=== PATIENT | male | born 1970 | race American Indian/Alaskan Native ===

== ENCOUNTER 2017-03-08 02:01 | Emergency (ER) | payer MEDICARE ==
[2017-03-08 03:35] LABS: Basophils % (Auto) 0.5 % (0.0-1.8); Eosinophils # (Auto) 0.1 K/mm3 (0.0-0.4); Eosinophils % (Auto) 1.1 % (0.0-4.3); Hemoglobin 12.4 gm/dl (11.8-15.2); Lymphocytes # (Auto) 1.2 K/mm3 (1.2-5.4); Lymphocytes % (Auto) 16.4 % (13.4-35.0); Mean Corpuscular HGB Conc 34 % (32-34); Mean Corpuscular Hemoglobin 28 pg (28-32); Mean Corpuscular Volume 85 fl (84-94); Monocytes # (Auto) 0.6 K/mm3 (0.0-0.8); Monocytes % (Auto) 8.4 % (0.0-7.3); Platelet Count 201 K/mm3 (140-440); Red Blood Count 4.38 M/mm3 (3.65-5.03); Red Cell Distribution Width 14.4 % (13.2-15.2)
--- NOTE | 2017-03-08 08:30 | Emergency Department Report ---
Chief Complaint: Hyperglycemia Stated Complaint: N/V HYPERGLYCEMIA Time Seen by Provider: 03/08/17 08:29 - HPI History of Present Illness: DM HERE W N/V BAG OF EMESIS IN HAND IN TRIAGE WR ABC INTACT VS AND BG TO BE REPEATED NO CP NO SOB - Exam Vital Signs: Vital Signs 03/08/17 02:21 Temperature 99.3 F Pulse Rate 118 H Respiratory 18 Rate Blood Pressure 138/92 O2 Sat by Pulse 94 Oximetry MSE screening note: Focused history and physical exam performed. Due to findings the following was ordered: ED Medical Decision Making - Lab Data Result diagrams: 03/08/17 02:54 03/08/17 02:54 ED Disposition for MSE Condition: Stable Referrals: EVAN BRYANT MD [Primary Care Provider] - 3-5 Days
[2017-03-08] MEDS ORDERED: ZOFRAN IV ONE (16:42)
[2017-03-08] MEDS ORDERED: NACL 0.9% 1000 ML 2,000 ML IV ONE (16:42)
[2017-03-08] MEDS ORDERED: TYLENOL PO ONE (16:42)
--- NOTE | 2017-03-08 16:43 | Emergency Department Report ---
ED General Adult HPI - General Chief complaint: Hyperglycemia Stated complaint: N/V HYPERGLYCEMIA Time Seen by Provider: 03/08/17 08:29 Source: patient, RN notes reviewed Mode of arrival: Ambulatory Limitations: Physical Limitation - History of Present Illness Initial comments: This is a 46-year-old male who was previously unknown to this provider, he endorses a past medical history of diabetes, hypertension, bilateral lower extremity below-knee amputation, chronic renal insufficiency. Patient is brought to the hospital by EMS for complaint of nausea, vomiting. He is not having abdominal pain. He is not having diarrhea, he has no testicular pain, and he is no irritative or obstructive urinary symptoms. He reports multiple episodes of nonbloody, nonbilious emesis over the past 3-4 days. This is actually resolving, and he only threw up once or twice today. He denies severe headache, neck pain, chest pain, shortness of breath, urinary symptoms. His symptoms do not radiate anywhere. -: Gradual, days(s) Improves with: none Worsens with: none Associated Symptoms: fever/chills, nausea/vomiting. denies: confusion, chest pain, cough, diaphoresis, headaches, loss of appetite, shortness of breath, syncope, weakness - Related Data Previous Rx's Medication Instructions Recorded Last Taken Type Ondansetron [Zofran Odt] 4 mg PO Q8HR PRN #20 tab.rapdis 03/08/17 Unknown Rx Promethazine [Phenergan SUPPOS] 50 mg AR Q6H PRN #20 supp.rect 03/08/17 Unknown Rx Allergies Allergy/AdvReac Type Severity Reaction Status Date / Time No Known Allergies Allergy Unverified 03/08/17 02:49 ED Review of Systems ROS: Stated complaint: N/V HYPERGLYCEMIA Other details as noted in HPI Constitutional: fever Eyes: denies: vision change ENT: denies: epistaxis Respiratory: denies: shortness of breath Cardiovascular: denies: chest pain Gastrointestinal: nausea, vomiting. denies: diarrhea, constipation Genitourinary: denies: urgency, dysuria, frequency, testicular pain, testicular mass Skin: denies: lesions Neurological: denies: weakness ED Past Medical Hx - Past Medical History Hx Hypertension: Yes Hx Diabetes: Yes Hx GERD: Yes - Surgical History Past Surgical History?: Yes Additional Surgical History: Bilateral Amputee - Social History Smoking Status: Never Smoker Substance Use Type: None - Medications Home Medications: Home Medications Medication Instructions Recorded Confirmed Last Taken Type Ondansetron [Zofran Odt] 4 mg PO Q8HR PRN #20 tab.rapdis 03/08/17 Unknown Rx Promethazine [Phenergan SUPPOS] 50 mg AR Q6H PRN #20 supp.rect 03/08/17 Unknown Rx ED Physical Exam - General Limitations: Physical Limitation General appearance: alert, in no apparent distress - Head Head exam: Present: atraumatic, normocephalic - Eye Eye exam: Present: normal appearance, EOMI. Absent: nystagmus - ENT ENT exam: Present: normal exam, normal orophraynx, mucous membranes moist, normal external ear exam - Neck Neck exam: Present: normal inspection, full ROM - Respiratory Respiratory exam: Present: normal lung sounds bilaterally. Absent: respiratory distress - Cardiovascular Cardiovascular Exam: Present: normal rhythm, tachycardia, normal heart sounds. Absent: systolic murmur, diastolic murmur, rubs, gallop - GI/Abdominal GI/Abdominal exam: Present: soft, normal bowel sounds. Absent: distended, tenderness, guarding, rebound, rigid, pulsatile mass - Rectal Rectal exam: Present: deferred - Extremities Exam Extremities exam: Present: normal inspection, other (2+ pulses noted in the bilateral upper extremities, bilateral lower extremity amputations noted.). Absent: tenderness - Back Exam Back exam: Present: normal inspection. Absent: paraspinal tenderness, vertebral tenderness - Neurological Exam Neurological exam: Present: alert, oriented X3, CN II-XII intact, other ( Extraocular movements intact. Tongue midline. No facial droop. Facial sensation intact to light touch in the V1, V2, V3 distribution bilaterally. 5 and 5 strength in 4 extremities.. Sensation is intact to light touch in 4 extremities.) - Psychiatric Psychiatric exam: Present: normal affect, normal mood - Skin Skin exam: Present: warm, dry, intact, normal color. Absent: rash ED Course Vital Signs 03/08/17 03/08/17 03/08/17 02:21 16:44 16:45 Temperature 99.3 F Pulse Rate 118 H 114 H Respiratory 18 18 Rate Blood Pressure 138/92 113/77 113/77 O2 Sat by Pulse 94 Oximetry 03/08/17 03/08/17 03/08/17 17:00 17:31 18:00 Temperature Pulse Rate 112 H 111 H 115 H Respiratory 16 18 16 Rate Blood Pressure 133/93 113/77 124/82 O2 Sat by Pulse 98 Oximetry 03/08/17 03/08/17 03/08/17 18:31 19:00 19:31 Temperature Pulse Rate 117 H 108 H 106 H Respiratory 16 16 16 Rate Blood Pressure 124/82 111/80 111/80 O2 Sat by Pulse 93 Oximetry ED Medical Decision Making - Lab Data Result diagrams: 03/08/17 02:54 03/08/17 02:54 Vital Signs 03/08/17 03/08/17 03/08/17 02:21 16:44 16:45 Temperature 99.3 F Pulse Rate 118 H 114 H Respiratory 18 18 Rate Blood Pressure 138/92 113/77 113/77 O2 Sat by Pulse 94 Oximetry 03/08/17 03/08/17 03/08/17 17:00 17:31 18:00 Temperature Pulse Rate 112 H 111 H 115 H Respiratory 16 18 16 Rate Blood Pressure 133/93 113/77 124/82 O2 Sat by Pulse 98 Oximetry 03/08/17 03/08/17 03/08/17 18:31 19:00 19:31 Temperature Pulse Rate 117 H 108 H 106 H Respiratory 16 16 16 Rate Blood Pressure 124/82 111/80 111/80 O2 Sat by Pulse 93 Oximetry Lab Results 03/08/17 03/08/17 03/08/17 Range/Units 02:54 02:54 02:54 WBC 7.2 (4.5-11.0) K/mm3 RBC 4.38 (3.65-5.03) M/mm3 Hgb 12.4 (11.8-15.2) gm/dl Hct 37.0 (35.5-45.6) % MCV 85 (84-94) fl MCH 28 (28-32) pg MCHC 34 (32-34) % RDW 14.4 (13.2-15.2) % Plt Count 201 (140-440) K/mm3 Lymph % (Auto) 16.4 (13.4-35.0) % [place] % (Auto) 8.4 H (0.0-7.3) % Eos % (Auto) 1.1 (0.0-4.3) % Baso % (Auto) 0.5 (0.0-1.8) % Lymph # 1.2 (1.2-5.4) K/mm3 [place] # 0.6 (0.0-0.8) K/mm3 Eos # 0.1 (0.0-0.4) K/mm3 Baso # 0.0 (0.0-0.1) K/mm3 Seg Neutrophils % 73.6 H (40.0-70.0) % Seg Neutrophils # 5.3 (1.8-7.7) K/mm3 VBG pH 7.326 (7.320-7.420) Sodium 140 (137-145) mmol/L Potassium 4.3 (3.6-5.0) mmol/L Chloride 97.1 L (98-107) mmol/L Carbon Dioxide 24 (22-30) mmol/L Anion Gap 23 mmol/L BUN 44 H (9-20) mg/dL Creatinine 2.5 H (0.8-1.5) mg/dL Estimated GFR 34 ml/min BUN/Creatinine Ratio 18 % Glucose 268 H (75-100) mg/dL POC Glucose (70-105) Calcium 9.0 (8.4-10.2) mg/dL Urine Color (Yellow) Urine Turbidity (Clear) Urine pH (5.0-7.0) Ur Specific [place] (1.003-1.030) Urine Protein (Negative) mg/dL Urine Glucose (UA) (Negative) mg/dL Urine Ketones (Negative) mg/dL Urine Blood (Negative) Urine Nitrite (Negative) Urine Bilirubin (Negative) Urine Urobilinogen (<2.0) mg/dL Ur Leukocyte Esterase (Negative) Urine WBC (Auto) (0.0-6.0) /HPF Urine RBC (Auto) (0.0-6.0) /HPF U Epithel Cells (Auto) (0-13.0) /HPF 03/08/17 03/08/17 Range/Units 16:20 17:10 WBC (4.5-11.0) K/mm3 RBC (3.65-5.03) M/mm3 Hgb (11.8-15.2) gm/dl Hct (35.5-45.6) % MCV (84-94) fl MCH (28-32) pg MCHC (32-34) % RDW (13.2-15.2) % Plt Count (140-440) K/mm3 Lymph % (Auto) (13.4-35.0) % [place] % (Auto) (0.0-7.3) % Eos % (Auto) (0.0-4.3) % Baso % (Auto) (0.0-1.8) % Lymph # (1.2-5.4) K/mm3 [place] # (0.0-0.8) K/mm3 Eos # (0.0-0.4) K/mm3 Baso # (0.0-0.1) K/mm3 Seg Neutrophils % (40.0-70.0) % Seg Neutrophils # (1.8-7.7) K/mm3 VBG pH (7.320-7.420) Sodium (137-145) mmol/L Potassium (3.6-5.0) mmol/L Chloride (98-107) mmol/L Carbon Dioxide (22-30) mmol/L Anion Gap mmol/L BUN (9-20) mg/dL Creatinine (0.8-1.5) mg/dL Estimated GFR ml/min BUN/Creatinine Ratio % Glucose (75-100) mg/dL POC Glucose 254 H (70-105) Calcium (8.4-10.2) mg/dL Urine Color Yellow (Yellow) Urine Turbidity Clear (Clear) Urine pH 5.0 (5.0-7.0) Ur Specific [place] 1.017 (1.003-1.030) Urine Protein 100 mg/dl (Negative) mg/dL Urine Glucose (UA) >=500 (Negative) mg/dL Urine Ketones Tr (Negative) mg/dL Urine Blood Neg (Negative) Urine Nitrite Neg (Negative) Urine Bilirubin Neg (Negative) Urine Urobilinogen < 2.0 (<2.0) mg/dL Ur Leukocyte Esterase Neg (Negative) Urine WBC (Auto) < 1.0 (0.0-6.0) /HPF Urine RBC (Auto) 1.0 (0.0-6.0) /HPF U Epithel Cells (Auto) < 1.0 (0-13.0) /HPF - EKG Data 03/08/17 19:58 Sinus tachycardia, 116 bpm, left axis deviation, high left ventricular voltage, not consistent with ST elevation myocardial infarction, no prior for comparison. - Radiology Data Differential diagnosis, including not limited to: Gastritis, gastroenteritis, viral syndrome, diabetic gastroparesis Assessment and plan: Voice 6-year-old male with a complaint of 3 days of nausea and vomiting. He is defecating and passing gas. He has a low-grade temperature , and is tachycardic. His abdomen is soft and benign, with no rebound, guarding or peritoneal signs. Patient given aggressive IV fluids, nausea medication, he felt much improved. His EKG had nonspecific abnormalities but does not demonstrate or suggest an ST elevation myocardial infarction, patient is observed in the ER for approximately 18 hours without clinical decompensation , and he is reassessed by myself frequently and numerous times and is noted to be tolerating liquid feeds. Still has mild tachycardia at this time, but clinically appears much improved, given that he is able to tolerate liquid feeds at this time, given that he reports he has chronic renal insufficiency with a GFR of 30, I believe the patient is suitable for discharge at this time, and he will be discharged. Return precautions are reviewed. Critical care attestation.: If time is entered above; I have spent that time in minutes in the direct care of this critically ill patient, excluding procedure time. ED Disposition Clinical Impression: ESRD (end stage renal disease), History of nausea and vomiting Disposition: DC-01 TO HOME OR SELFCARE Is pt being admited?: No Does the pt Need Aspirin: No Condition: Stable Instructions: Chronic Kidney Disease (ED) Additional Instructions: Take the nausea medication as needed/directed. Drink fluids as needed/ tolerated. Follow up with the primary care doctor or U sail maker within the next 3-5 days. Return to the ER right away with new pain, worsened pain, migration of pain, fevers, chills, lethargy, irritability, projectile vomiting, confusion, change in mental status, inability to tolerate liquid feeds. Referrals: EVAN BRYANT MD [Primary Care Provider] - 3-5 Days
[2017-03-08] MEDS ORDERED: CARAFATE PO ONE (17:44)
[2017-03-08] MEDS ORDERED: PEPCID IV ONE (17:44)
[2017-03-08] MEDS ORDERED: ALUM-MAG HYDROX-SIMETH 200-200-20MG/5ML PO ONE (17:44)
[2017-03-08 18:00] LABS: Bilirubin,Urine NEG (Negative); Blood,Urine NEG (Negative); Color,Urine Yellow (Yellow); Nitrite,Urine NEG (Negative); Urobilinogen,Urine < 2.0 mg/dL (<2.0); WBC,Urine < 1.0 /HPF (0.0-6.0)
[2017-03-08] MEDS ORDERED: NACL 0.9% 1000 ML 1,000 ML IV ONE (18:58)
[2017-03-08 22:59] VITALS: BP 122/85
== END 2017-03-08 22:50 | disposition home or self-care (01) ==
LOC: ED 02:01
DX: I12.0 Hypertensive chronic kidney disease with stage 5 chronic kidney disease or end stage renal disease (principal); E11.22 Type 2 diabetes mellitus with diabetic chronic kidney disease; N18.6 End stage renal disease; K21.9 Gastro-esophageal reflux disease without esophagitis
CPT/HCPCS: 36415; 80048; 81001; 82805; 82962; 85025; 96361; 96374; 96375; 99284; J2405; J7030; 93005; 93010; J1815

== ENCOUNTER 2020-09-03 14:22 | Emergency (ER) | payer MEDICARE ==
--- NOTE | 2020-09-03 15:05 | Emergency Department Report ---
HPI - General Chief Complaint: Nausea/Vomiting/Diarrhea Time Seen by Provider: 09/03/20 14:27 - HPI HPI: This is a 50-year-old -[place] male presents to the emergency department with a complaint of some nausea without vomiting and missing his first outpatient dialysis appointment. Patient was recently diagnosed with renal failure and was given a Vas-Cath while in [facility]. The patient was discharged from [facility] on Wednesday. Patient says that he called the dialysis center yesterday and was told that he was supposed to have filled out paperwork yesterday so that he could start outpatient dialysis today. He says that he has now been set up for outpatient dialysis but since he has not received dialysis since he was inpatient at [facility], he was told to come to emergency department for a medical clearance. The patient denies any chest pain, shortness of breath, abdominal pain, lower extremity swelling, fever. He has not taken anything for his symptoms prior to presentation. He presents via EMS from home. He has a past medical history of hypertension, diabetes and bilateral BKA. ED Past Medical Hx - Past Medical History Hx Hypertension: Yes Hx Diabetes: Yes Hx GERD: Yes - Surgical History Additional Surgical History: Bilateral Amputee - Social History Smoking Status: Never Smoker Substance Use Type: None - Medications Home Medications: Home Medications Medication Instructions Recorded Confirmed Last Taken Type Ondansetron [Zofran Odt] 4 mg PO Q8HR PRN #20 tab.rapdis 03/08/17 Unknown Rx Promethazine [Phenergan SUPPOS] 50 mg [place] Q6H PRN #20 supp.rect 03/08/17 Unknown Rx ED Review of Systems ROS: Stated complaint: RENAL FAILURE/MISSED DIALYSIS Other details as noted in HPI Comment: All other systems reviewed and negative Constitutional: denies: chills, fever Eyes: denies: eye pain, vision change ENT: denies: ear pain, throat pain Respiratory: denies: cough, shortness of breath Cardiovascular: denies: chest pain, palpitations Gastrointestinal: nausea. denies: abdominal pain, vomiting Genitourinary: denies: dysuria, discharge Musculoskeletal: denies: back pain, arthralgia Skin: denies: rash, lesions Neurological: denies: headache, weakness Physical Exam - Physical Exam Vital Signs: Vital Signs 09/03/20 14:28 Pulse Rate 80 Respiratory 18 Rate Blood Pressure 144/90 [Right] O2 Sat by Pulse 98 Oximetry Physical Exam: GENERAL: The patient is well-developed well-nourished. HENT: Normocephalic. Atraumatic. Patient has moist mucous membranes. EYES: Extraocular motions are intact. NECK: Supple. Trachea is midline. CHEST/LUNGS: Clear to auscultation. There is no respiratory distress noted. There is a right-sided Vas-Cath. HEART/CARDIOVASCULAR: Regular. There is no tachycardia. There is no murmur. ABDOMEN: Abdomen is soft, nontender. Patient has normal bowel sounds. There is no abdominal distention. SKIN: Skin is warm and dry. NEURO: The patient is awake, alert, and oriented. The patient is cooperative. The patient has no focal neurologic deficits. Normal speech. MUSCULOSKELETAL: There is no tenderness or deformity. Bilateral below-knee ampu tations. ED Course Vital Signs 09/03/20 14:28 Pulse Rate 80 Respiratory 18 Rate Blood Pressure 144/90 [Right] O2 Sat by Pulse 98 Oximetry ED Medical Decision Making - Lab Data Result diagrams: 09/03/20 15:04 09/03/20 15:04 Lab Results 09/03/20 09/03/20 Range/Units 15:04 15:04 WBC 5.3 (4.5-11.0) K/mm3 RBC 2.98 L (3.65-5.03) M/mm3 Hgb 8.4 L (11.8-15.2) gm/dl Hct 25.9 L (35.5-45.6) % MCV 87 (84-94) fl MCH 28 (28-32) pg MCHC 32 (32-34) % RDW 16.0 H (13.2-15.2) % Plt Count 160 (140-440) K/mm3 [place] % (Auto) Copy Lathe Tender Add Manual Diff Complete Total Counted 100 Seg Neuts % (Manual) 61.0 (40.0-70.0) % Lymphocytes % (Manual) 15.0 (13.4-35.0) % Monocytes % (Manual) 17.0 H (0.0-7.3) % Eosinophils % (Manual) 6.0 H (0.0-4.3) % Basophils % (Manual) 1.0 (0.0-1.8) % Nucleated RBC % Not Reportable Seg Neutrophils # Man 3.2 (1.8-7.7) K/mm3 Band Neutrophils # 0.0 K/mm3 Lymphocytes # (Manual) 0.8 L (1.2-5.4) K/mm3 Abs React Lymphs (Man) 0.0 K/mm3 Monocytes # (Manual) 0.9 H (0.0-0.8) K/mm3 Eosinophils # (Manual) 0.3 (0.0-0.4) K/mm3 Basophils # (Manual) 0.1 (0.0-0.1) K/mm3 Metamyelocytes # 0.0 K/mm3 Myelocytes # 0.0 K/mm3 Promyelocytes # 0.0 K/mm3 Blast Cells # 0.0 K/mm3 WBC Morphology Not Reportable Hypersegmented Neuts Not Reportable Hyposegmented Neuts Not Reportable Hypogranular Neuts Not Reportable Smudge Cells Not Reportable Toxic Granulation Not Reportable Toxic Vacuolation Not Reportable Dohle Bodies Not Reportable Pelger-Huet Anomaly Not Reportable Marni Rods Not Reportable Platelet Estimate Not Reportable Clumped Platelets Not Reportable Plt Clumps, EDTA Not Reportable Large Platelets Not Reportable Giant Platelets Not Reportable Platelet Satelliting Not Reportable Plt Morphology Comment Not Reportable RBC Morphology Normal Dimorphic RBCs Not Reportable Polychromasia Not Reportable Hypochromasia Not Reportable Poikilocytosis Not Reportable Anisocytosis Not Reportable Microcytosis Not Reportable Macrocytosis Not Reportable Spherocytes Not Reportable Pappenheimer Bodies Not Reportable Sickle Cells Not Reportable Target Cells Not Reportable Tear Drop Cells Not Reportable Ovalocytes Not Reportable Helmet Cells Not Reportable Valero-Parmelee Bodies Not Reportable Sterling Rings Not Reportable [place] Cells Not Reportable Bite Cells Not Reportable Crenated Cell Not Reportable Elliptocytes Not Reportable Acanthocytes (Spur) Not Reportable Rouleaux Not Reportable Hemoglobin C Crystals Not Reportable Schistocytes Not Reportable Malaria parasites Not Reportable Jose Bodies Not Reportable Hem Pathologist Commnt No Sodium 140 (137-145) mmol/L Potassium 4.0 (3.6-5.0) mmol/L Chloride 100.6 (98-107) mmol/L Carbon Dioxide 27 (22-30) mmol/L Anion Gap 16 mmol/L BUN 33 H (9-20) mg/dL Creatinine 5.3 H (0.8-1.3) mg/dL Estimated GFR 14 ml/min BUN/Creatinine Ratio 6 % Glucose 133 H (75-100) mg/dL Calcium 9.1 (8.4-10.2) mg/dL - Medical Decision Making This patient presents to the emergency department for evaluation as he missed his first outpatient dialysis session and it has been a few days since he was last dialyzed. His only complaint is some nausea without vomiting. He denies any shortness of breath or any swelling to the thighs or abdomen. Vital signs reassuring throughout his ED course including being afebrile. The patient's labs are mostly unremarkable except for the renal insufficiency consistent with his end-stage renal disease. No hyperkalemia. The patient was given a copy of his labs to be brought with him to dialysis. He has been instructed to follow- up with primary care and nephrology. He will return to the emergency department with any worsening of his symptoms or with any acute distress. Critical Care Time: No Critical care attestation.: If time is entered above; I have spent that time in minutes in the direct care of this critically ill patient, excluding procedure time. ED Disposition Clinical Impression: Missed dialysis, ESRD on hemodialysis Disposition: TO HOME OR SELFCARE Is pt being admited?: No Condition: Stable Instructions: Dialysis, End-Stage Kidney Disease Additional Instructions: Please follow-up for your normal dialysis schedule. Please follow-up with your coal carrier. Please avoid any NSAIDs such as Aleve, naproxen, ibuprofen, Advil, as these can cause further damage to your kidney function. Return to the emergency department with any worsening of your symptoms, new or concerning symptoms not addressed during this current emergency department visit, or with any acute distress. Referrals: PRIMARY CAREMD [Primary Care Provider] - 2-3 Days Time of Disposition: 17:58
[2020-09-03 15:24] LABS: Hematocrit 25.9 % (35.5-45.6); Hemoglobin 8.4 gm/dl (11.8-15.2); Mean Corpuscular HGB Conc 32 % (32-34); Mean Corpuscular Volume 87 fl (84-94); Platelet Count 160 K/mm3 (140-440); Red Blood Count 2.98 M/mm3 (3.65-5.03)
[2020-09-03] MEDS ORDERED: ONDANSETRON 4 MG ODT TAB PO ONE (15:32)
[2020-09-03 15:52] LABS: Calcium 9.1 mg/dL (8.4-10.2)
[2020-09-03 16:11] LABS: RBC Morphology Normal; Total Cells Counted 100
[2020-09-03 23:05] VITALS: BP 140/92
== END 2020-09-03 23:11 | disposition home or self-care (01) ==
LOC: ED 14:22
DX: I12.0 Hypertensive chronic kidney disease with stage 5 chronic kidney disease or end stage renal disease (principal); E11.22 Type 2 diabetes mellitus with diabetic chronic kidney disease; N18.6 End stage renal disease; K21.9 Gastro-esophageal reflux disease without esophagitis; Z99.2 Dependence on renal dialysis; Z98.890 Other specified postprocedural states; Z79.899 Other long term (current) drug therapy; Z91.15 Patient's noncompliance with renal dialysis
CPT/HCPCS: 36415; 80048; 85007; 85025; Q0162

== ENCOUNTER 2020-09-16 20:06 | Inpatient (IN) | payer MEDICARE ==
[2020-09-16] MEDS ORDERED: ASPIRIN 81 MG TAB CHEW PO ONE (20:33)
[2020-09-16 21:21] LABS: Basophils % (Auto) 0.4 % (0.0-1.8); Eosinophils # (Auto) 0.1 K/mm3 (0.0-0.4); Eosinophils % (Auto) 0.8 % (0.0-4.3); Hemoglobin 10.3 gm/dl (11.8-15.2); Lymphocytes # (Auto) 1.3 K/mm3 (1.2-5.4); Mean Corpuscular HGB Conc 33 % (32-34); Mean Corpuscular Volume 87 fl (84-94); Monocytes % (Auto) 9.4 % (0.0-7.3); Platelet Count 213 K/mm3 (140-440); Red Blood Count 3.56 M/mm3 (3.65-5.03); Red Cell Distribution Width 15.8 % (13.2-15.2)
--- NOTE | 2020-09-16 21:22 | XRay Report ---
CHEST 2 VIEWS INDICATION / CLINICAL INFORMATION: Chest Pain. COMPARISON: None available. FINDINGS: SUPPORT DEVICES: Tip of the PermCath projects the level the superior vena cava. HEART / MEDIASTINUM: No significant abnormality. LUNGS / PLEURA: There are patchy airspace opacities noted in the lung bases which could represent ate lectasis or evolving pneumonia. No pneumothorax. ADDITIONAL FINDINGS: No significant additional findings. IMPRESSION: 1. There are opacities in the lung bases which could represent atelectasis or an evolving pneumonia. Signer Name: Barber Tan MD Signed: 09/16/2020 9:18 PM Workstation Name: [id number]
[2020-09-16 21:52] LABS: Calcium 9.4 mg/dL (8.4-10.2)
[2020-09-16] MEDS ORDERED: fentaNYL 100 MCG/2 ML INJ IV ONE (22:13)
[2020-09-16] MEDS ORDERED: ONDANSETRON 4 MG/2 ML INJ IV ONE (22:13)
[2020-09-16] MEDS ORDERED: NITROGLYCERIN 2% OINT 1 GM TP ONE (22:13)
--- NOTE | 2020-09-16 22:18 | Emergency Department Report ---
HPI - General Chief Complaint: Chest Pain Time Seen by Provider: 09/16/20 22:04 - HPI HPI: Room 18 The patient is a 50-year-old male present with a chief complaint of chest pain. Patient states for the past 3 days he has had substernal chest pain has been intermittent and burning in nature. Patient admits to nausea vomiting and diaphoresis with this chest pain. Patient denies shortness of breath but admits there is a slight pleuritic component. Patient denies history of cough or fever. Patient currently gets his chest pain a score of 6/10. Patient states his last stress test occurred over 5 years ago and he has never had a cardiac catheterization ED Past Medical Hx - Past Medical History Previous Medical History?: Yes Hx Hypertension: Yes Hx Diabetes: Yes Hx GERD: Yes Hx Renal Disease: Yes () - Surgical History Past Surgical History?: Yes Additional Surgical History: Bilateral BKA's - Family History Family history: no significant - Social History Smoking Status: Never Smoker Substance Use Type: None - Medications Home Medications: Home Medications Medication Instructions Recorded Confirmed Last Taken Type Ondansetron [Zofran Odt] 4 mg PO Q8HR PRN #20 tab.rapdis 03/08/17 Unknown Rx Promethazine [Phenergan SUPPOS] 50 mg LA Q6H PRN #20 supp.rect 03/08/17 Unknown Rx ED Review of Systems ROS: Stated complaint: CHEST PAIN,VOMITING,DIALSYS Other details as noted in HPI Constitutional: diaphoresis Eyes: denies: eye pain ENT: denies: throat pain Respiratory: denies: shortness of breath Cardiovascular: chest pain Endocrine: no symptoms reported Gastrointestinal: nausea, vomiting Genitourinary: denies: testicular pain Musculoskeletal: denies: back pain Neurological: denies: headache Physical Exam - Physical Exam Vital Signs: Vital Signs 09/16/20 20:35 Temperature 99.5 F Pulse Rate 113 H Respiratory 17 Rate Blood Pressure 135/96 O2 Sat by Pulse 99 Oximetry Physical Exam: GENERAL: The patient is well-developed well-nourished male lying on stretcher not appearing to be in acute distress. [] HEENT: Normocephalic. Atraumatic. Extraocular motions are intact. Patient has moist mucous membranes. NECK: Supple. Trachea midline CHEST/LUNGS: Clear to auscultation. There is no respiratory distress noted. HEART/CARDIOVASCULAR: Regular. There is no tachycardia. There is no gallop rub or murmur. ABDOMEN: Abdomen is soft, nontender. Patient has normal bowel sounds. There is no abdominal distention. SKIN: There is no rash. There is no diaphoresis. NEURO: The patient is awake, alert, and oriented. The patient is cooperative. The patient has no focal neurologic deficits. The patient has normal speech. GCS 15 MUSCULOSKELETAL: Bilateral BKA's. There is no evidence of acute injury. ED Course Vital Signs 09/16/20 20:35 Temperature 99.5 F Pulse Rate 113 H Respiratory 17 Rate Blood Pressure 135/96 O2 Sat by Pulse 99 Oximetry - Consultations Consultation #1: 09/16/20 22:17 Nephrology paged ED Medical Decision Making - Lab Data Result diagrams: 09/16/20 20:58 09/16/20 20:58 Laboratory Tests 09/16/20 09/16/20 09/16/20 20:58 20:58 20:58 WBC 10.8 RBC 3.56 L Hgb 10.3 L Hct 31.0 L MCV 87 MCH 29 MCHC 33 RDW 15.8 H Plt Count 213 Lymph % (Auto) 12.0 L [place] % (Auto) 9.4 H Eos % (Auto) 0.8 Baso % (Auto) 0.4 Lymph # (Auto) 1.3 [place] # (Auto) 1.0 H Eos # (Auto) 0.1 Baso # (Auto) 0.0 Seg Neutrophils % 77.4 H Seg Neutrophils # 8.4 H D-Dimer 4952.35 H Sodium 145 Potassium 3.2 L Chloride 100.0 Carbon Dioxide 26 Anion Gap 22 BUN 28 H Creatinine 9.0 H Estimated GFR 8 BUN/Creatinine Ratio 3 Glucose 205 H Calcium 9.4 Troponin T 0.176 H* - EKG Data -: EKG Interpreted by Me EKG shows normal: sinus rhythm Rate: tachycardia (111 bpm) - EKG Data When compared to previous EKG there are: previous EKG unavailable - Radiology Data Radiology results: report reviewed (Chest x-ray, CT chest), image reviewed (Chest x-ray, CT chest) interpreted by me: Chest [id number] haziness. No pneumothorax. [facility] [address] [place] [address] XRay Report Signed Patient: RENITA HUBBARD MR#: [id number] : 1970 Acct:[id number] Age/Sex: 50 / M ADM Date: 09/16/20 Loc: ED Attending Dr: Ordering Physician: ROBINA AGUILAR MD Date of Service: 09/16/20 Procedure(s): XR chest routine 2V Accession Number(s): [id number] cc: ROBINA AGUILAR MD Fluoro Time In Minutes: CHEST 2 VIEWS INDICATION / CLINICAL INFORMATION: Chest Pain. COMPARISON: None available. FINDINGS: SUPPORT DEVICES: Tip of the PermCath projects the level the superior vena cava. HEART / MEDIASTINUM: No significant abnormality. LUNGS / PLEURA: There are patchy airspace opacities noted in the lung bases which could represent atelectasis or evolving pneumonia. No pneumothorax. ADDITIONAL FINDINGS: No significant additional findings. IM PRESSION: 1. There are opacities in the lung bases which could represent atelectasis or an evolving pneumonia. Signer Name: Barber Tan MD Signed: 09/16/2020 9:18 PM Workstation Name: [id number] Transcribed By: SS Dictated By: Barber Tan MD Electronically Authenticated By: Barber Tan MD Signed Date/Time: 09/16/202117 DD/ 16 TD/TT: Print Cancel [facility] [address] [place] [address] Cat Scan Report Signed Patient: RENITA HUBBARD MR#: [id number] : 1970 Acct:[id number] Age/Sex: 50 / M ADM Date: 09/16/20 Loc: ED Attending Dr: Ordering Physician: LOY ROSALES MD Date of Service: 09/16/20 Procedure(s): CT angio chest Accession Number(s): [id number] cc: LOY ROSALES MD CTA CHEST WITH CONTRAST INDICATION / CLINICAL INFORMATION: Substernal chest pain x 3 days. Pt is on Dialysis. TECHNIQUE: Axial CT images were obtained through the chest after injection of IV contrast. 3 plane MIP and/or 3D reconstructions were produced. All CT scans at this location are performed using CT dose reduction for ALARA by means of automated exposure control. COMPARISON: None available. FINDINGS: PULMONARY ARTERIES: Subsegmental pulmonary artery filling defect in the left lower lobe (series 2 image 51). No additional pulmonary embolus identified. THORACIC AORTA: No significant abnormality. HEART: The heart is enlarged. No pericardial effusion. ADENOPATHY: Enlarged AP window/paraesophageal lymph node measuring 1.3 cm (series 2 image 30). LUNGS/PLEURA: Patchy interstitial and mild airspace opacities within the lung bases, greatest in the lower lobes. No suspicious pulmonary nodule. No pleural effusion. No pneumothorax. ADDITIONAL FINDINGS: Small hiatal hernia is present. There is masslike thickening of the distal esophagus with more mild mural thickening of the midesophagus. Right IJ central venous catheter tip terminates at the cavoatrial junction. UPPER ABDOMEN: No acute findings. SKELETAL STRUCTURES: No significant osseous abnormality. IMPRESSION: 1. Small subsegmental pulmonary embolus of the left lower lobe. 2. Masslike thickening of the distal esophagus with enlarged left paraesophageal lymph node. Findings could reflect esophagitis, though malignancy cannot be excluded. Recommend further evaluation with GI consultation and consideration for endoscopy. 3. Patchy bibasilar interstitial and airspace disease, suspicious for infiltrate. This could be related to aspiration. CRITICAL RESULT: Time of Discovery (ELECTRICAL FOREMAN/CDT): 09/16/2020 at 10:55 PM Time of Communication (ELECTRICAL FOREMAN/CDT): 09/16/2020 at 10:58 PM Licensed Practitioner Receiving Report: Dr. Rosales Read-Back Performed: Yes. Signer Name: Marvel Lewis MD Signed: 09/16/2020 11:58 PM Workstation Name: [id number] Transcribed By: AMADOR Dictated By: MARVEL LEWIS MD Electronically Authenticated By: MARVEL LEWIS MD Signed Date/Time: 09/16/202357 DD/ 49 TD/TT: Print Cancel - Differential Diagnosis ACS, PE, pericarditis, GERD, pneumonia Critical care attestation.: If time is entered above; I have spent that time in minutes in the direct care of this critically ill patient, excluding procedure time. ED Disposition Clinical Impression: Chest pain Disposition: OP ADMIT IP TO THIS HOSP Is pt being admited?: Yes Does the pt Need Aspirin: No Condition: Fair Instructions: Nonspecific Chest Pain, Adult Time of Disposition: 00:12 (Hospitalist notified (Dr Franklin)) Heart Score - HEART Score History: Moderately suspicious EKG: Non-specific Age: 45-65 Risk factors: 1-2 risk factors Troponin: 1-3x normal limit HEART Score: 5 - EKG Read Time Time EKG Completed: 20:42 EKG Read Time: 20:46
[2020-09-16] MEDS ORDERED: AZITHROMYCIN/NS 500 MG/250 ML 500 MG/250 ML BAG IV ONE (23:57)
[2020-09-16] MEDS ORDERED: cefTRIAXone/NS 1 GM/50 ML 1 GM/50 ML BAG IV ONE (23:57)
[2020-09-17] MEDS ORDERED: HEPARIN 10,000 UNITS/10 ML VIAL IV ONE (00:01)
[2020-09-17] MEDS ORDERED: HEPARIN 10,000 UNITS/10 ML VIAL IV PRN (00:01)
--- NOTE | 2020-09-17 00:03 | Cat Scan Report ---
CTA CHEST WITH CONTRAST INDICATION / CLINICAL INFORMATION: Substernal chest pain x 3 days. Pt is on Dialysis. TECHNIQUE: Axial CT images were obtained through the chest after injection of IV contrast. 3 plane MD P and/or 3D reconstructions were produced. All CT scans at this location are performed using CT dose reduction for ALARA by means of automated exposure control. COMPARISON: None available. FINDINGS: PULMONARY ARTERIES: Subsegmental pulmonary artery filling defect in the left lower lobe (series 2 leola ge 51). No additional pulmonary embolus identified. THORACIC AORTA: No significant abnormality. HEART: The heart is enlarged. No pericardial effusion. ADENOPATHY: Enlarged AP window/paraesophageal lymph node measuring 1.3 cm (series 2 image 30). LUNGS/PLEURA: Patchy interstitial and mild airspace opacities within the lung bases, greatest in the lower lobes. No suspicious pulmonary nodule. No pleural effusion. No pneumothorax. ADDITIONAL FINDINGS: Small hiatal hernia is present. There is masslike thickening of the distal esoph candelaria with more mild mural thickening of the midesophagus. Right IJ central venous catheter tip termin ates at the cavoatrial junction. UPPER ABDOMEN: No acute findings. SKELETAL STRUCTURES: No significant osseous abnormality. IMPRESSION: 1. Small subsegmental pulmonary embolus of the left lower lobe. 2. Masslike thickening of the distal esophagus with enlarged left paraesophageal lymph node. Findings could reflect esophagitis, though malignancy cannot be excluded. Recommend further evaluation with G I consultation and consideration for endoscopy. 3. Patchy bibasilar interstitial and airspace disease, suspicious for infiltrate. This could be relat ed to aspiration. CRITICAL RESULT: Time of Discovery (RN FLOAT/CDT): 09/16/2020 at 10:55 PM Time of Communication (RN FLOAT/CDT): 09/16/2020 at 10:58 PM Licensed Practitioner Receiving Report: Dr. Kaufman Read-Back Performed: Yes. Signer Name: Tan Lewis MD Signed: 09/16/2020 11:58 PM Workstation Name: [id number]
[2020-09-17] MEDS ORDERED: NITROGLYCERIN 0.4 MG TAB SUBL SL PRN (00:26)
[2020-09-17] MEDS ORDERED: ACETAMINOPHEN 325 MG TAB PO PRN (00:26)
[2020-09-17] MEDS ORDERED: traMADol 50 MG TAB PO PRN (00:26)
[2020-09-17] MEDS ORDERED: PROMETHAZINE 50 MG RECT SUPP PR PRN (00:31)
--- NOTE | 2020-09-17 00:35 | History and Physical Report ---
History of Present Illness Date of examination: 09/17/20 Date of admission: [place] 09/17/2020 Chief complaint: Chest pain History of present illness: 50-year-old male with past medical history of end-stage renal disease on hemodialysis, diabetes and GERD was brought to the emergency room because of chest pain for the past 3 days he has had substernal chest pain has been intermittent and burning in nature. Patient admits to nausea vomiting and diaphoresis with this chest pain. Patient denies shortness of breath but admits there is a slight pleuritic component. Patient denies history of cough or fever. Patient currently gets his chest pain a score of 6/10. Patient states his last stress test occurred over 5 years ago and he has never had a cardiac catheterization. In the emergency room patient CT scan shows pulmonary embolism and aspiration pneumonia. Patient also has elevated troponin 0 0.176. Patient BUN is 28 creatinine 9.0 Past History Past Medical History: diabetes, ESRD, GERD, hypertension Medications and Allergies Allergies Allergy/AdvReac Type Severity Reaction Status Date / Time No Known Allergies Allergy Unverified 03/08/17 02:49 Home Medications Medication Instructions Recorded Confirmed Last Taken Type Ondansetron [Zofran Odt] 4 mg PO Q8HR PRN #20 tab.rapdis 03/08/17 Unknown Rx Promethazine [Phenergan SUPPOS] 50 mg VT Q6H PRN #20 supp.rect 03/08/17 Unknown Rx Active Meds: Active Medications Acetaminophen (Acetaminophen 325 Mg Tab) 650 mg PO Q6H PRN PRN Reason: Pain, Mild (1-3) Aspirin (Aspirin Ec 325 Mg Tab) 325 mg PO QDAY ELYSIA Atorvastatin Calcium (Atorvastatin 40 Mg Tab) 40 mg PO QHS [facility] Heparin Sodium (Porcine) (Heparin 10,000 Units/10 Ml Vial) 4,500 unit 40 unit/kg (4500 unit) IV Q6H PRN PRN Reason: Anti-Xa Assay<0.1 units/ml Azithromycin (Zithromax/Ns) 500 mg in 250 mls @ 250 mls/hr IV ONCE ONE; Protocol Stop: 09/17/20 00:56 Last Admin: 09/17/20 00:18 Dose: 250 mls/hr Documented by: Heparin Sodium/Sodium Chloride (Heparin/ 0.45% Nacl-25,000 Unit/500 Ml) 25,000 unit in 500 mls @ 30 mls/hr IV TITR ELYSIA; Protocol Morphine Sulfate (Morphine 4 Mg/1 Ml Inj) 2 mg IV Q5MIN PRN PRN Reason: Chest Pain Nitroglycerin (Nitroglycerin 0.4 Mg Tab Subl) 0.4 mg SL Q5M PRN PRN Reason: Chest Pain Pantoprazole Sodium (Pantoprazole 40 Mg Tab) 40 mg PO QDAY ELYSIA Sodium Chloride (Sodium Chloride 0.9% 10 Ml Flush Syringe) 10 ml IV PRN PRN PRN Reason: LINE FLUSH Tramadol HCl (Tramadol 50 Mg Tab) 50 mg PO Q6H PRN PRN Reason: Pain, Moderate (4-6) Review of Systems Cardiovascular: chest pain Gastrointestinal: nausea, vomiting Exam - Constitutional Vitals: Temp Pulse Resp BP Pulse Ox 99.5 F 103 H 16 133/86 97 09/16/20 20:35 09/16/20 23:16 09/16/20 23:28 09/16/20 23:16 09/16/20 23:16 General appearance: Present: no acute distress, well-nourished - EENT Eyes: Present: PERRL ENT: hearing intact, clear oral mucosa - Neck Neck: Present: supple, normal ROM - Respiratory Respiratory effort: normal Respiratory: bilateral: CTA - Cardiovascular Heart Sounds: Present: S1 & S2. Absent: rub, click - Extremities Extremities: pulses symmetrical, No edema Peripheral Pulses: within normal limits - Abdominal General gastrointestinal: Present: soft, non-tender, non-distended, normal bowel sounds Male genitourinary: Present: normal - Integumentary Integumentary: Present: clear, warm, dry - Musculoskeletal Musculoskeletal: gait normal, strength equal bilaterally - Psychiatric Psychiatric: appropriate mood/affect, intact judgment & insight - Neurologic Neurologic: CNII-XII intact, moves all extremities HEART Score - HEART Score EKG: Non-specific Age: 45-65 Risk factors: 1-2 risk factors Troponin: Troponin T 0.176 ng/mL (0.00-0.029) H* 09/16/20 20:58 Troponin: 1-3x normal limit Results - Labs CBC & Chem 7: 09/16/20 20:58 09/16/20 20:58 Labs: Laboratory Last Values WBC 10.8 K/mm3 (4.5-11.0) 09/16/20 20:58 RBC 3.56 M/mm3 (3.65-5.03) L 09/16/20 20:58 Hgb 10.3 gm/dl (11.8-15.2) L 09/16/20 20:58 Hct 31.0 % (35.5-45.6) L 09/16/20 20:58 MCV 87 fl (84-94) 09/16/20 20:58 MCH 29 pg (28-32) 09/16/20 20:58 MCHC 33 % (32-34) 09/16/20 20:58 RDW 15.8 % (13.2-15.2) H 09/16/20 20:58 Plt Count 213 K/mm3 (140-440) 09/16/20 20:58 Lymph % (Auto) 12.0 % (13.4-35.0) L 09/16/20 20:58 [place] % (Auto) 9.4 % (0.0-7.3) H 09/16/20 20:58 Eos % (Auto) 0.8 % (0.0-4.3) 09/16/20 20:58 Baso % (Auto) 0.4 % (0.0-1.8) 09/16/20 20:58 Lymph # (Auto) 1.3 K/mm3 (1.2-5.4) 09/16/20 20:58 [place] # (Auto) 1.0 K/mm3 (0.0-0.8) H 09/16/20 20:58 Eos # (Auto) 0.1 K/mm3 (0.0-0.4) 09/16/20 20:58 Baso # (Auto) 0.0 K/mm3 (0.0-0.1) 09/16/20 20:58 Seg Neutrophils % 77.4 % (40.0-70.0) H 09/16/20 20:58 Seg Neutrophils # 8.4 K/mm3 (1.8-7.7) H 09/16/20 20:58 D-Dimer 4952.35 ng/mlDDU (0-234) H 09/16/20 20:58 Sodium 145 mmol/L (137-145) 09/16/20 20:58 Potassium 3.2 mmol/L (3.6-5.0) L 09/16/20 20:58 Chloride 100.0 mmol/L (98-107) 09/16/20 20:58 Carbon Dioxide 26 mmol/L (22-30) 09/16/20 20:58 Anion Gap 22 mmol/L 09/16/20 20:58 BUN 28 mg/dL (9-20) H 09/16/20 20:58 Creatinine 9.0 mg/dL (0.8-1.3) H 09/16/20 20:58 Estimated GFR 8 ml/min 09/16/20 20:58 BUN/Creatinine Ratio 3 % 09/16/20 20:58 Glucose 205 mg/dL (75-100) H 09/16/20 20:58 Calcium 9.4 mg/dL (8.4-10.2) 09/16/20 20:58 Troponin T 0.176 ng/mL (0.00-0.029) H* 09/16/20 20:58 - Imaging and Cardiology CT scan - chest: report reviewed Assessment and Plan VTE prophylaxis?: Chemical Plan of care discussed with patient/family: Yes - Patient Problems (1) Acute coronary syndrome Current Visit: Yes Status: Acute Plan to address problem: Admit to medical telemetry. Aspirin 325 mg p.o. daily. Nitroglycerin as needed. Lipitor 40 mg p.o. daily. Serial cardiac enzyme. Echocardiogram. Cardiology consult (2) Pneumonia Current Visit: Yes Status: Acute Plan to address problem: Oxygen per nasal cannula 3 L/min. DuoNeb by nebulizer every 4 hours as needed. Rocephin 2 g IV daily and Zithromax 500 IV daily. Blood cultures sputum culture. Recheck CBC BMP in the morning (3) Pulmonary embolism Current Visit: Yes Status: Acute Plan to address problem: Oxygen by nasal cannula 3 to per minute. DuoNeb by nebulizer every 4 hours. Heparin drip as per protocol. Echocardiogram (4) Diabetes Current Visit: Yes Status: Acute Plan to address problem: We will put the patient on 1800 kcal ADA diet. Humalog sliding scale Accu-Chek before meals and at bedtime with moderate dose coverage. Recheck CBC BMP in the morning (5) GERD (gastroesophageal reflux disease) Current Visit: Yes Status: Acute Plan to address problem: Protonix 40 mg p.o. daily. We will continue the home medication (6) Hypertension Current Visit: Yes Status: Acute Plan to address problem: Hydralazine 10 mg IV every 6 hours as needed. We will monitor the blood pressure closely (7) ESRD on hemodialysis Current Visit: No Status: Acute Plan to address problem: We consulted training and development assistant for hemodialysis in the morning. We will continue the home medication. Recheck BMP in the morning (8) DVT prophylaxis Current Visit: Yes Status: Acute Plan to address problem: Heparin drip for DVT prophylaxis. Protonix 40 mg p.o. daily for GI prophylaxis. Patient is a full code
[2020-09-17 01:03] LABS: Basophils # (Auto) 0.1 K/mm3 (0.0-0.1); Basophils % (Auto) 0.6 % (0.0-1.8); Eosinophils % (Auto) 0.4 % (0.0-4.3); Hematocrit 29.2 % (35.5-45.6); Hemoglobin 9.5 gm/dl (11.8-15.2); Lymphocytes # (Auto) 1.1 K/mm3 (1.2-5.4); Mean Corpuscular HGB Conc 33 % (32-34); Mean Corpuscular Volume 86 fl (84-94); Monocytes # (Auto) 0.8 K/mm3 (0.0-0.8); Platelet Count 215 K/mm3 (140-440); Red Blood Count 3.39 M/mm3 (3.65-5.03); Red Cell Distribution Width 15.9 % (13.2-15.2)
[2020-09-17 01:13] LABS: INR 1.09 (0.87-1.13); Partial Thromboplastin Time 29.2 Sec. (24.2-36.6)
[2020-09-17 01:18] LABS: Calcium 8.8 mg/dL (8.4-10.2)
[2020-09-17] MEDS: HEPARIN/ 0.45% NACL DRIP 25,000 UNIT/500 ML BAG IV SCH ×2 (01:23→18:14)
[2020-09-17 02:19] LABS: Chol/HDL Ratio 2.84 %
[2020-09-17] MEDS ORDERED: SODIUM CHLORIDE 0.9% 100 ML IV PRN (04:41)
[2020-09-17] MEDS: POTASSIUM CHLORIDE 10 MEQ 10 MEQ/100 ML BAG IV SCH ×4 (10:06→18:35)
[2020-09-17] MEDS: PANTOPRAZOLE 40 MG TAB PO SCH (10:06)
--- NOTE | 2020-09-17 10:54 | Electrocardiograph Report ---
[facility] Test Date: 2020-09-16 Test Time: 20:42:52 Pat Name: RENITA HUBBARD Department: Room: [place] [address] Gender: M Beater Operator: MARBELLA : 1970 Requested By: LOY ROSALES Order Number: [id number] Reading MD: Gonzalo Carlos Measurements Intervals Elaine Rate: 111 P: 20 VT: 125 QRS: -7 QRSD: 95 T: 16 QT: 333 QTc: 453 Interpretive Statements Sinus tachycardia No previous ECG available for comparison Electronically Signed On 09-17-2020 10:53:52 EDT by Gonzalo Carlos
[2020-09-17] MEDS: cefTRIAXone/NS 2 GM/100 ML 2 GM/100 ML BAG IV SCH (11:30)
--- NOTE | 2020-09-17 12:50 | Consultation ---
History of Present Illness Consult date: 09/17/20 Requesting physician: MEENA VILLA Consult reason: chest pain History of present illness: This patient is a 50-year-old male with a significant history of insulin- dependent diabetes status post bilateral below-knee amputations due to diabetic complication, end-stage renal disease on dialysis, hypertension, gastroparesis. He is previously unknown to our practice and is not followed by cardiology. Patient presents to [facility] ER with chief complaint of nausea/vomiting x1 week with associated epigastric pain. Pain is described as 5 out of 10, like heartburn, painful on empty stomach and worse with food. Patient has significant history of previous similar episodes. Patient is diagnosed with PTE confirmed via CTA chest, and aspiration pneumonia. Patient reports he has recently been discharged from [facility] approximately 5 days ago for some same complaint after 2-week hospitalization. Review of medical record reveals no ischemic work-up performed in [facility]. Patient was discharged home PSH on mammogram, sodium bicarb, gabapentin, Tessalon, metoclopramide chloride. Cardiology is consulted for chest pain. At time of interview chest pain is currently resolved. Patient currently denying any weakness, dizziness, syncope, abdominal pain,, shortness of breath, chest pain, recent illness or known exposures. Patient denies tobacco EtOH or recreational drug use. He is followed by Dr. Landon Shaffer associated with [facility]. No prior cardiac diagnostics available for review. Past History Past Medical History: diabetes, ESRD, GERD, hypertension, other (See HPI) Medications and Allergies Allergies Allergy/AdvReac Type Severity Reaction Status Date / Time No Known Allergies Allergy Unverified 03/08/17 02:49 Home Medications Medication Instructions Recorded Confirmed Last Taken Type Ondansetron [Zofran Odt] 4 mg PO Q8HR PRN #20 tab.rapdis 03/08/17 Unknown Rx Promethazine [Phenergan SUPPOS] 50 mg SC Q6H PRN #20 supp.rect 03/08/17 Unknown Rx Active Meds: Active Medications Acetaminophen (Acetaminophen 325 Mg Tab) 650 mg PO Q6H PRN PRN Reason: Pain, Mild (1-3) Last Admin: 09/17/20 10:05 Dose: 650 mg Documented by: Aspirin (Aspirin Ec 325 Mg Tab) 325 mg PO QDAY [facility] Atorvastatin Calcium (Atorvastatin 40 Mg Tab) 40 mg PO QHS [facility] Heparin Sodium (Porcine) (Heparin 10,000 Units/10 Ml Vial) 4,500 unit 40 unit/kg (4500 unit) IV Q6H PRN PRN Reason: Anti-Xa Assay<0.1 units/ml Heparin Sodium/Sodium Chloride (Heparin/ 0.45% Nacl-25,000 Unit/500 Ml) 25,000 unit in 500 mls @ 30 mls/hr IV TITR [facility]; Protocol Last Titration: 09/17/20 08:51 Dose: 1,400 units/hr, 28 mls/hr Documented by: Ceftriaxone Sodium (Rocephin/Ns 2 Gm/100 Ml) 2 gm in 100 mls @ 200 mls/hr IV Q24HR [facility]; Protocol Last Admin: 09/17/20 11:30 Dose: 200 mls/hr Documented by: Azithromycin (Zithromax/Ns) 500 mg in 250 mls @ 250 mls/hr IV Q24HR [facility]; Protocol Sodium Chloride (Nacl 0.9%) 100 mls @ 999 mls/hr IV GISELL PRN PRN Reason: Hypotension Potassium Chloride (Kcl 10meq/100ml) 10 meq in 100 mls @ 100 mls/hr IV Q1H [facility] Stop: 09/17/20 13:29 Last Admin: 09/17/20 10:06 Dose: 100 mls/hr Documented by: Morphine Sulfate (Morphine 2 Mg/1 Ml Inj) 2 mg IV Q5MIN PRN PRN Reason: Chest Pain Nitroglycerin (Nitroglycerin 0.4 Mg Tab Subl) 0.4 mg SL Q5M PRN PRN Reason: Chest Pain Pantoprazole Sodium (Pantoprazole 40 Mg Tab) 40 mg PO QDAY [facility] Last Admin: 09/17/20 10:06 Dose: 40 mg Documented by: Promethazine HCl (Promethazine 50 Mg Rect Supp) 50 mg SC Q6H PRN PRN Reason: Nausea Sodium Chloride (Sodium Chloride 0.9% 10 Ml Flush Syringe) 10 ml IV PRN PRN PRN Reason: LINE FLUSH Tramadol HCl (Tramadol 50 Mg Tab) 50 mg PO Q6H PRN PRN Reason: Pain, Moderate (4-6) Review of Systems Constitutional: no weight loss, no weight gain, no fever, no chills, no sweats, no night sweats Ears, nose, mouth and throat: no ear pain, no ear discharge, no nose pain, no nasal congestion, no nasal discharge Cardiovascular: chest pain, no orthopnea, no palpitations, no rapid/irregular heart beat, no edema, no syncope, no lightheadedness, no shortness of breath Respiratory: cough, cough with sputum, excessive sputum, no hemoptysis, no shortness of breath, no dyspnea on exertion Gastrointestinal: abdominal pain, nausea, vomiting, no diarrhea Genitourinary Male: no flank pain Musculoskeletal: no neck stiffness, no neck pain, no shooting arm pain, no arm numbness/tingling, no low back pain, no shooting leg pain Integumentary: no rash, no pruritis, no redness, no sores, no wounds Neurological: no head injury, no paralysis, no weakness, no parathesias, no numbness, no tingling, no seizures, no syncope Psychiatric: no anxiety Endocrine: no cold intolerance, no heat intolerance Hematologic/Lymphatic: no easy bruising, no easy bleeding Allergic/Immunologic: no urticaria Physical Examination Last Vital Signs Temp 99.5 F 09/16/20 20:35 Pulse 99 H 09/17/20 06:00 Resp 18 09/17/20 06:00 BP 95/60 09/17/20 06:00 Pulse Ox 87 09/17/20 06:00 General appearance: no acute distress HEENT: Positive: PERRL, Normocephaly, Mucus Membranes Moist Neck: Positive: neck supple, trachea midline Cardiac: Positive: Reg Rate and Rhythm, S1/S2 Lungs: Positive: Decreased Breath Sounds Neuro: Positive: Grossly Intact Abdomen: Positive: Unremarkable, Soft Skin: Negative: Rash, Wound Musculoskeletal: No Pain Extremities: Present: upper extr. pulses. Absent: edema Results 09/17/20 00:49 09/17/20 00:49 Coagulation 09/17/20 Range/Units 00:49 PT 14.6 (12.2-14.9) Sec. INR 1.09 (0.87-1.13) APTT 29.2 (24.2-36.6) Sec. Lipids 09/16/20 Range/Units 20:58 Triglycerides 162 H (2-149) mg/dL Cholesterol 168 (50-199) mg/dL HDL Cholesterol 59 (40-59) mg/dL Cholesterol/HDL Ratio 2.84 % CBC 09/16/20 09/17/20 Range/Units 20:58 00:49 WBC 10.8 9.8 (4.5-11.0) K/mm3 RBC 3.56 L 3.39 L (3.65-5.03) M/mm3 Hgb 10.3 L 9.5 L (11.8-15.2) gm/dl Hct 31.0 L 29.2 L (35.5-45.6) % Plt Count 213 215 (140-440) K/mm3 Lymph # (Auto) 1.3 1.1 L (1.2-5.4) K/mm3 [place] # (Auto) 1.0 H 0.8 (0.0-0.8) K/mm3 Eos # (Auto) 0.1 0.0 (0.0-0.4) K/mm3 Baso # (Auto) 0.0 0.1 (0.0-0.1) K/mm3 Comprehensive Metabolic Panel 09/16/20 09/17/20 Range/Units 20:58 00:49 Sodium 145 141 (137-145) mmol/L Potassium 3.2 L 3.0 L (3.6-5.0) mmol/L Chloride 100.0 99.0 (98-107) mmol/L Carbon Dioxide 26 29 (22-30) mmol/L BUN 28 H 29 H (9-20) mg/dL Creatinine 9.0 H 8.9 H (0.8-1.3) mg/dL Glucose 205 H 168 H (75-100) mg/dL Calcium 9.4 8.8 (8.4-10.2) mg/dL - Imaging and Cardiology Echo: report reviewed (Record echocardiogram 09/17/2020: LVEF 55 to 60%. LV normal size. LV SF normal. Mild diastolic dysfunction. RV SF is normal. No valvular abnormalities.) EKG interpretations - Telemetry EKG Rhythm: Sinus Tachycardia - EKG Sinus rhythms and dysrhythmias: sinus tachycardia Assessment and Plan Chest pain * Record echocardiogram 09/17/2020: LVEF 55 to 60%. LV normal size. LV SF normal. Mild diastolic dysfunction. RV SF is normal. No valvular abnormalities. * Patient is describing chest pain that is unchanged from his chronic discomfort. Twelve-lead reviewed shows sinus tach with no acute ischemic changes. Troponin is mildly elevated x1. We will continue to trend CE's. * CTA chest is significant for possible esophageal mass. Further evaluation per primary team Elevated troponin in setting of pulmonary embolism * Currently on heparin drip. Aspiration pneumonia * Management per primary team ESRD on HD secondary to uncontrolled insulin-dependent diabetes * Nephrology is consulted We will continue to trend CE's. Echocardiogram is unremarkable. Will follow This patient was seen in conjunction with Dr Carlos who agrees with this assessment and plan of care - Patient Problems (1) Chest pain Current Visit: Yes Status: Chronic (2) DVT prophylaxis Current Visit: Yes Status: Acute (3) GERD (gastroesophageal reflux disease) Current Visit: Yes Status: Chronic (4) Hypertension Current Visit: Yes Status: Chronic (5) Pneumonia Current Visit: Yes Status: Acute (6) Pulmonary embolism Current Visit: Yes Status: Acute (7) ESRD on hemodialysis Current Visit: Yes Status: Chronic (8) Insulin dependent diabetes mellitus Current Visit: Yes Status: Chronic
[2020-09-17] MEDS: AZITHROMYCIN/NS 500 MG/250 ML 500 MG/250 ML BAG IV SCH (13:44)
--- NOTE | 2020-09-17 14:27 | Gastroenterology Consultation ---
History of Present Illness - Reason for Consult Consult date: 09/17/[address] Requesting physician: COOKIE MUELLER - History of Present Illness The patient is a 50 yo male admitted with a new PE, but also a mass (versus esophagitis) in the esophagus. He has no N/V/abdominal pain. He does admit to chronic GERD (takes omeprazole consistently) and has had dysphagia for solids as well as mild weight loss (less than 20 pounds). He has chronic CP and chronic SOB (see Cards eval note). He is currently on HD and vitals are stable/no pain. He has had an EGD but it was over 3 years ago (he thinks). He is a former smoker. Past History Past Medical History: diabetes, ESRD, GERD, hypertension, other (New Pulmonary Embolus) Past Surgical History: Other (BKA x 2) Social history: denies: smoking Medications and Allergies Allergies Allergy/AdvReac Type Severity Reaction Status Date / Time No Known Allergies Allergy Verified 09/17/20 14:04 Home Medications Medication Instructions Recorded Confirmed Last Taken Type Ondansetron [Zofran Odt] 4 mg PO Q8HR PRN #20 tab.rapdis 03/08/17 09/17/20 Unknown Rx Promethazine [Phenergan SUPPOS] 50 mg DC Q6H PRN #20 supp.rect 03/08/17 09/17/20 Unknown Rx Benzonatate [Tessalon Perles] 100 mg PO TID PRN 09/17/20 09/17/20 Unknown History Gabapentin 300 mg PO 3XW 09/17/20 09/17/20 Unknown History Midodrine [Proamatine] 5 mg PO TID 09/17/20 09/17/20 Unknown History Omeprazole 40 mg PO BID 09/17/20 09/17/20 Unknown History lisinopriL [Zestril TAB] 40 mg PO QDAY 09/17/20 09/17/20 Unknown History Active Meds: Active Medications Acetaminophen (Acetaminophen 325 Mg Tab) 650 mg PO Q6H PRN PRN Reason: Pain, Mild (1-3) Last Admin: 09/17/20 10:05 Dose: 650 mg Documented by: Aspirin (Aspirin Ec 325 Mg Tab) 325 mg PO QDAY [facility] Atorvastatin Calcium (Atorvastatin 40 Mg Tab) 40 mg PO QHS [facility] Heparin Sodium (Porcine) (Heparin 10,000 Units/10 Ml Vial) 4,500 unit 40 unit/kg (4500 unit) IV Q6H PRN PRN Reason: Anti-Xa Assay<0.1 units/ml Heparin Sodium/Sodium Chloride (Heparin/ 0.45% Nacl-25,000 Unit/500 Ml) 25,000 unit in 500 mls @ 30 mls/hr IV TITR [facility]; Protocol Last Titration: 09/17/20 08:51 Dose: 1,400 units/hr, 28 mls/hr Documented by: Ceftriaxone Sodium (Rocephin/Ns 2 Gm/100 Ml) 2 gm in 100 mls @ 200 mls/hr IV Q24HR [facility]; Protocol Last Admin: 09/17/20 11:30 Dose: 200 mls/hr Documented by: Azithromycin (Zithromax/Ns) 500 mg in 250 mls @ 250 mls/hr IV Q24HR [facility]; Protocol Last Admin: 09/17/20 13:44 Dose: Not Given Documented by: Sodium Chloride (Nacl 0.9%) 100 mls @ 999 mls/hr IV GISELL PRN PRN Reason: Hypotension Morphine Sulfate (Morphine 2 Mg/1 Ml Inj) 2 mg IV Q5MIN PRN PRN Reason: Chest Pain Nitroglycerin (Nitroglycerin 0.4 Mg Tab Subl) 0.4 mg SL Q5M PRN PRN Reason: Chest Pain Pantoprazole Sodium (Pantoprazole 40 Mg Tab) 40 mg PO QDAY [facility] Last Admin: 09/17/20 10:06 Dose: 40 mg Documented by: Promethazine HCl (Promethazine 50 Mg Rect Supp) 50 mg DC Q6H PRN PRN Reason: Nausea Sodium Chloride (Sodium Chloride 0.9% 10 Ml Flush Syringe) 10 ml IV PRN PRN PRN Reason: LINE FLUSH Tramadol HCl (Tramadol 50 Mg Tab) 50 mg PO Q6H PRN PRN Reason: Pain, Moderate (4-6) I HAVE REVIEWED/RECONCILED MEDICATIONS Review of Systems - Review of Systems All systems: negative (as noted in the HPI.) Exam - Constitutional Vital Signs: Temp Pulse Resp BP Pulse Ox 99.5 F 99 H 18 95/60 87 09/16/20 20:35 09/17/20 06:00 09/17/20 06:00 09/17/20 06:00 09/17/20 06:00 General appearance: no acute distress - EENT Eyes: PERRL, EOM intact ENT: hearing intact, clear oral mucosa - Neck Neck: supple, normal ROM - Respiratory Respiratory effort: normal Respiratory: bilateral: CTA - Cardiovascular Rhythm: regular Heart Sounds: Present: S1 & S2 Extremities: no ischemia, No edema - Gastrointestinal General gastrointestinal: Present: soft, non-tender, non-distended - Integumentary Integumentary: Present: clear, warm, dry - Neurologic Neurological: alert and oriented x3 - Labs CBC & Chem 7: 09/17/20 00:49 09/17/20 00:49 Lab Results: Laboratory Results - last 24 hr 09/16/20 09/16/20 09/16/20 20:58 20:58 20:58 WBC 10.8 RBC 3.56 L Hgb 10.3 L Hct 31.0 L MCV 87 MCH 29 MCHC 33 RDW 15.8 H Plt Count 213 Lymph % (Auto) 12.0 L [place] % (Auto) 9.4 H Eos % (Auto) 0.8 Baso % (Auto) 0.4 Lymph # (Auto) 1.3 [place] # (Auto) 1.0 H Eos # (Auto) 0.1 Baso # (Auto) 0.0 Seg Neutrophils % 77.4 H Seg Neutrophils # 8.4 H PT INR APTT D-Dimer 4952.35 H Heparin Anti-Xa Level Sodium 145 Potassium 3.2 L Chloride 100.0 Carbon Dioxide 26 Anion Gap 22 BUN 28 H Creatinine 9.0 H Estimated GFR 8 BUN/Creatinine Ratio 3 Glucose 205 H Calcium 9.4 Troponin T 0.176 H* Triglycerides 162 H Cholesterol 168 LDL Cholesterol Direct 80 HDL Cholesterol 59 Cholesterol/HDL Ratio 2.84 09/17/20 09/17/20 09/17/20 00:49 00:49 00:49 WBC 9.8 RBC 3.39 L Hgb 9.5 L Hct 29.2 L MCV 86 MCH 28 MCHC 33 RDW 15.9 H Plt Count 215 Lymph % (Auto) 11.0 L [place] % (Auto) 8.0 H Eos % (Auto) 0.4 Baso % (Auto) 0.6 Lymph # (Auto) 1.1 L [place] # (Auto) 0.8 Eos # (Auto) 0.0 Baso # (Auto) 0.1 Seg Neutrophils % 80.0 H Seg Neutrophils # 7.9 H PT 14.6 INR 1.09 APTT 29.2 D-Dimer Heparin Anti-Xa Level Sodium 141 Potassium 3.0 L Chloride 99.0 Carbon Dioxide 29 Anion Gap 16 BUN 29 H Creatinine 8.9 H Estimated GFR 8 BUN/Creatinine Ratio 3 Glucose 168 H Calcium 8.8 Troponin T Triglycerides Cholesterol LDL Cholesterol Direct HDL Cholesterol Cholesterol/HDL Ratio 09/17/20 09/17/20 07:49 07:49 WBC RBC Hgb Hct MCV MCH MCHC RDW Plt Count Lymph % (Auto) [place] % (Auto) Eos % (Auto) Baso % (Auto) Lymph # (Auto) [place] # (Auto) Eos # (Auto) Baso # (Auto) Seg Neutrophils % Seg Neutrophils # PT INR APTT D-Dimer Heparin Anti-Xa Level 0.86 H Sodium Potassium Chloride Carbon Dioxide Anion Gap BUN Creatinine Estimated GFR BUN/Creatinine Ratio Glucose Calcium Troponin T 0.160 H* Triglycerides Cholesterol LDL Cholesterol Direct HDL Cholesterol Cholesterol/HDL Ratio Assessment and Plan - Patient Problems (1) Abnormal CT scan, esophagus Current Visit: Yes Status: Acute Plan to address problem: - Will plan EGD to evaluate, because if present, will complicate anticoagulation for his PE. - NPO after midnight, and continue daily Protonix. - Liquid diet today given dysphagia.
[2020-09-17] MEDS: ONDANSETRON 4 MG/2 ML INJ IV PRN ×2 (14:45→21:19)
[2020-09-17] MEDS: MORPHINE 2 MG/1 ML INJ IV PRN (14:46)
--- NOTE | 2020-09-17 15:09 | Consultation ---
History of Present Illness - Reason for Consult end stage renal disease - History of Present Illness Pleasant 50-year-old morbidly obese -[place] male with history of end- stage renal disease in the setting of hypertension and diabetes who initially was started on dialysis less than a month ago, who is under the care of Dr. Dean Moore and currently dialyzes at [facility] in [place], presented to the emergency room department secondary to symptoms concerning for chest pain or shortness of breath. Initial CT is concerning for subsegmental small pulmonary embolus in the left lower lobe. Nephrology consult at this time secondary to chronic hemodialysis needs. Past History Past Medical History: diabetes, ESRD, GERD, hypertension, other (New Pulmonary Embolus) Past Surgical History: Other (BKA x 2) Social history: denies: smoking Medications and Allergies Allergies Allergy/AdvReac Type Severity Reaction Status Date / Time No Known Allergies Allergy Verified 09/17/20 14:04 Home Medications Medication Instructions Recorded Confirmed Last Taken Type Ondansetron [Zofran Odt] 4 mg PO Q8HR PRN #20 tab.rapdis 03/08/17 09/17/20 Unknown Rx Promethazine [Phenergan SUPPOS] 50 mg IN Q6H PRN #20 supp.rect 03/08/17 09/17/20 Unknown Rx Benzonatate [Tessalon Perles] 100 mg PO TID PRN 09/17/20 09/17/20 Unknown History Gabapentin 300 mg PO 3XW 09/17/20 09/17/20 Unknown History Midodrine [Proamatine] 5 mg PO TID 09/17/20 09/17/20 Unknown History Omeprazole 40 mg PO BID 09/17/20 09/17/20 Unknown History lisinopriL [Zestril TAB] 40 mg PO QDAY 09/17/20 09/17/20 Unknown History Active Meds: Active Medications Acetaminophen (Acetaminophen 325 Mg Tab) 650 mg PO Q6H PRN PRN Reason: Pain, Mild (1-3) Last Admin: 09/17/20 10:05 Dose: 650 mg Documented by: Aspirin (Aspirin Ec 325 Mg Tab) 325 mg PO QDAY [facility] Atorvastatin Calcium (Atorvastatin 40 Mg Tab) 40 mg PO QHS [facility] Heparin Sodium (Porcine) (Heparin 10,000 Units/10 Ml Vial) 4,500 unit 40 unit/kg (4500 unit) IV Q6H PRN PRN Reason: Anti-Xa Assay<0.1 units/ml Heparin Sodium/Sodium Chloride (Heparin/ 0.45% Nacl-25,000 Unit/500 Ml) 25,000 unit in 500 mls @ 30 mls/hr IV TITR [facility]; Protocol Last Titration: 09/17/20 08:51 Dose: 1,400 units/hr, 28 mls/hr Documented by: Ceftriaxone Sodium (Rocephin/Ns 2 Gm/100 Ml) 2 gm in 100 mls @ 200 mls/hr IV Q24HR [facility]; Protocol Last Admin: 09/17/20 11:30 Dose: 200 mls/hr Documented by: Azithromycin (Zithromax/Ns) 500 mg in 250 mls @ 250 mls/hr IV Q24HR [facility]; Protocol Last Admin: 09/17/20 13:44 Dose: Not Given Documented by: Sodium Chloride (Nacl 0.9%) 100 mls @ 999 mls/hr IV GISELL PRN PRN Reason: Hypotension Morphine Sulfate (Morphine 2 Mg/1 Ml Inj) 2 mg IV Q5MIN PRN PRN Reason: Chest Pain Last Admin: 09/17/20 14:46 Dose: 2 mg Documented by: Nitroglycerin (Nitroglycerin 0.4 Mg Tab Subl) 0.4 mg SL Q5M PRN PRN Reason: Chest Pain Ondansetron HCl (Ondansetron 4 Mg/2 Ml Inj) 4 mg IV Q4H PRN PRN Reason: Nausea And Vomiting Last Admin: 09/17/20 14:45 Dose: 4 mg Documented by: Pantoprazole Sodium (Pantoprazole 40 Mg Tab) 40 mg PO QDAY [facility] Last Admin: 09/17/20 10:06 Dose: 40 mg Documented by: Promethazine HCl (Promethazine 50 Mg Rect Supp) 50 mg IN Q6H PRN PRN Reason: Nausea Sodium Chloride (Sodium Chloride 0.9% 10 Ml Flush Syringe) 10 ml IV PRN PRN PRN Reason: LINE FLUSH Tramadol HCl (Tramadol 50 Mg Tab) 50 mg PO Q6H PRN PRN Reason: Pain, Moderate (4-6) Exam - Vital Signs Vital signs: Vital Signs Temp Pulse Resp BP Pulse Ox 99.5 F 113 H 17 135/96 99 09/16/20 20:35 07/12/21 20:35 09/16/20 20:35 09/16/20 20:35 09/16/20 20:35 - General Appearance General appearance: well-developed, obese EENT: ATNC Neck: Present: neck supple Respiratory: Clear to Ascultation Heart: regular Gastrointestinal: Present: normal Integumentary: no rash Neurologic: no focal deficit Musculoskeletal: Present: deferred Psychiatric: cooperative Results - Lab Results 09/17/20 00:49 09/17/20 00:49 Most recent lab results Calcium 8.8 mg/dL (8.4-10.2) 09/17/20 00:49 Assessment and Plan - Patient Problems (1) ESRD on hemodialysis Current Visit: Yes Status: Chronic Plan to address problem: orders placed to maintain patient on TTS inpatient hemodialysis schedule. (2) Chest pain Current Visit: Yes Status: Chronic Plan to address problem: cardiology evaluation reviewed. Patient with evidence of pulmonary embolism. Started on appropriate heparin drip therapy. GI consult reviewed for questionable underlying esophagitis which may also be contributing to aforementioned chest pain. Await further recommendations. (3) Pulmonary embolism Current Visit: Yes Status: Acute Plan to address problem: started on a heparin drip at this time. Management per primary team. (4) Hypertension Current Visit: Yes Status: Chronic Plan to address problem: monitor blood pressures under current regimen. (5) Insulin dependent diabetes mellitus Current Visit: Yes Status: Chronic Plan to address problem: diabetes management per primary attending.
[2020-09-17] MEDS ORDERED: MORPHINE 4 MG/1 ML INJ ONE (15:22)
--- NOTE | 2020-09-17 15:25 | Progress Note ---
Assessment and Plan --Acute pulmonary embolism Continue supplemental O2 DuoNeb by nebulizer every 4 hours. Heparin drip as per protocol. Echocardiogram ordered -- NSTEMI likely type II Likely due to underlying end-stage renal disease and bilateral PE Continue aspirin, sublingual nitroglycerin as needed Patient placed on heparin drip and cardiology consulted -- Pneumonia bilateral Oxygen per nasal cannula 3 L/min. DuoNeb by nebulizer every 4 hours as needed. Rocephin 2 g IV daily and Zithromax 500 IV daily. Blood cultures sputum culture. Recheck CBC BMP in the morning --Acute hypoxic respiratory failure, due to bilateral pneumonia and acute PE Continue to treat underlying cause, supplemental O2, IV antibiotics Will off O2 as tolerated -- Diabetes mellitus type II patient on 1800 kcal ADA diet. Humalog sliding scale Accu-Chek before meals and at bedtime with moderate dose coverage. -- GERD (gastroesophageal reflux disease) complete questionable esophageal mass Protonix 40 mg p.o. daily. We will continue the home medication Consulted GI plan for EGD tomorrow -- Hypertension Resume home meds and hydralazine 10 mg IV every 6 hours as needed. We will monitor the blood pressure closely -- ESRD on hemodialysis consulted social sciences chair for hemodialysis. We will continue the home medication. Recheck BMP in the morning -- DVT prophylaxis Heparin drip for DVT prophylaxis. Protonix 40 mg p.o. daily for GI prophylaxis. Patient is a full code Daily clinical course: 09/17/20; patient currently on heparin drip, continue to follow troponin, consult cardiology. Patient also noted to have possible esophageal mass on CT scan, consulted GI, plan for EGD tomorrow. Continue clear liquid diet for now. Subjective Date of service: 09/17/20 Interval history: Patient seen and examined. Medical records and medication list reviewed. No acute event overnight noted by the RN. Patient getting hemodialysis. Patient states that he is feeling better now but still has pleuritic chest pain and chest tightness Discussed plan of care at bedside with patient. Objective - Exam Narrative Exam: GENERAL: well-developed and morbidly obese -Maced[place] male lying on bed appeared to be in no discomfort. HEENT: Normocephalic. Atraumatic. No conjunctival congestion or icterus. Patient has moist mucous membranes. NECK: Supple. Trachea midline. CHEST/LUNGS: Clear to auscultated bilaterally, breathing nonlabored. No wheezes crackles or rhonchi. HEART/CARDIOVASCULAR: Regular in rate and rhythm. S1 and S2 positive. ABDOMEN: Abdomen is soft, nontender. Patient has normal bowel sounds. SKIN: There is no rash. Warm and dry. NEURO: No focal motor deficit. Follows command. MUSCULOSKELETAL: No joint effusion or tenderness. EXTRIMITY: Bilateral BKA PSYCH: Cooperative. - Constitutional Vitals: Vital Signs - 12hr 09/17/20 09/17/20 09/17/20 03:30 04:00 06:00 Temperature Pulse Rate 100 H 100 H 99 H Respiratory 21 11 L 18 Rate Blood Pressure 112/50 100/65 95/60 O2 Sat by Pulse 99 96 87 Oximetry O2 Sat by Pulse Oximetry [ Anterior Bilateral Throughout] 09/17/20 09/17/20 09/17/20 13:00 13:08 13:15 Temperature 98.5 F Pulse Rate 95 H 93 H 96 H Respiratory 18 Rate Blood Pressure 91/48 92/50 98/54 O2 Sat by Pulse Oximetry O2 Sat by Pulse 100 Oximetry [ Anterior Bilateral Throughout] 09/17/20 09/17/20 09/17/20 13:30 13:45 14:00 Temperature Pulse Rate 97 H 100 H 94 H Respiratory Rate Blood Pressure 86/48 88/46 81/37 O2 Sat by Pulse Oximetry O2 Sat by Pulse Oximetry [ Anterior Bilateral Throughout] 09/17/20 09/17/20 09/17/20 14:15 14:30 14:45 Temperature Pulse Rate 104 H 101 H 99 H Respiratory Rate Blood Pressure 99/61 100/60 103/65 O2 Sat by Pulse Oximetry O2 Sat by Pulse Oximetry [ Anterior Bilateral Throughout] 09/17/20 09/17/20 15:00 15:15 Temperature Pulse Rate 96 H 103 H Respiratory Rate Blood Pressure 90/42 125/76 O2 Sat by Pulse Oximetry O2 Sat by Pulse Oximetry [ Anterior Bilateral Throughout] - Labs CBC & Chem 7: 09/19/20 03:52 09/19/20 03:52 Labs: Abnormal lab results 09/16/20 09/16/20 09/16/20 Range/Units 20:58 20:58 20:58 RBC 3.56 L (3.65-5.03) M/mm3 Hgb 10.3 L (11.8-15.2) gm/dl Hct 31.0 L (35.5-45.6) % RDW 15.8 H (13.2-15.2) % Lymph % (Auto) 12.0 L (13.4-35.0) % [place] % (Auto) 9.4 H (0.0-7.3) % Lymph # (Auto) (1.2-5.4) K/mm3 [place] # (Auto) 1.0 H (0.0-0.8) K/mm3 Seg Neutrophils % 77.4 H (40.0-70.0) % Seg Neutrophils # 8.4 H (1.8-7.7) K/mm3 D-Dimer 4952.35 H (0-234) ng/mlDDU Heparin Anti-Xa Level (0.3-0.7) U.I./ml Potassium 3.2 L (3.6-5.0) mmol/L BUN 28 H (9-20) mg/dL Creatinine 9.0 H (0.8-1.3) mg/dL Glucose 205 H (75-100) mg/dL Troponin T 0.176 H* (0.00-0.029) ng/mL Triglycerides 162 H (2-149) mg/dL 09/17/20 09/17/20 09/17/20 Range/Units 00:49 00:49 07:49 RBC 3.39 L (3.65-5.03) M/mm3 Hgb 9.5 L (11.8-15.2) gm/dl Hct 29.2 L (35.5-45.6) % RDW 15.9 H (13.2-15.2) % Lymph % (Auto) 11.0 L (13.4-35.0) % [place] % (Auto) 8.0 H (0.0-7.3) % Lymph # (Auto) 1.1 L (1.2-5.4) K/mm3 [place] # (Auto) (0.0-0.8) K/mm3 Seg Neutrophils % 80.0 H (40.0-70.0) % Seg Neutrophils # 7.9 H (1.8-7.7) K/mm3 D-Dimer (0-234) ng/mlDDU Heparin Anti-Xa Level (0.3-0.7) U.I./ml Potassium 3.0 L (3.6-5.0) mmol/L BUN 29 H (9-20) mg/dL Creatinine 8.9 H (0.8-1.3) mg/dL Glucose 168 H (75-100) mg/dL Troponin T 0.160 H* (0.00-0.029) ng/mL Triglycerides (2-149) mg/dL 09/17/20 Range/Units 07:49 RBC (3.65-5.03) M/mm3 Hgb (11.8-15.2) gm/dl Hct (35.5-45.6) % RDW (13.2-15.2) % Lymph % (Auto) (13.4-35.0) % [place] % (Auto) (0.0-7.3) % Lymph # (Auto) (1.2-5.4) K/mm3 [place] # (Auto) (0.0-0.8) K/mm3 Seg Neutrophils % (40.0-70.0) % Seg Neutrophils # (1.8-7.7) K/mm3 D-Dimer (0-234) ng/mlDDU Heparin Anti-Xa Level 0.86 H (0.3-0.7) U.I./ml Potassium (3.6-5.0) mmol/L BUN (9-20) mg/dL Creatinine (0.8-1.3) mg/dL Glucose (75-100) mg/dL Troponin T (0.00-0.029) ng/mL Triglycerides (2-149) mg/dL HEART Score - HEART Score EKG: Non-specific Age: 45-65 Risk factors: 1-2 risk factors Troponin: Troponin T 0.160 ng/mL (0.00-0.029) H* 09/17/20 07:49 Troponin: 1-3x normal limit
[2020-09-17] MEDS ORDERED: MORPHINE 4 MG/1 ML INJ IV ONE (15:30)
[2020-09-17 15:35] LABS: Hepatitis B Surface Antigen Non-Reactive (Negative); Hepatitis C Virus Antibody Non-Reactive (NonReactive)
[2020-09-18 02:31] LABS: Basophils # (Auto) 0.1 K/mm3 (0.0-0.1); Basophils % (Auto) 0.9 % (0.0-1.8); Eosinophils # (Auto) 0.3 K/mm3 (0.0-0.4); Eosinophils % (Auto) 2.9 % (0.0-4.3); Hematocrit 29.5 % (35.5-45.6); Hemoglobin 9.7 gm/dl (11.8-15.2); Lymphocytes # (Auto) 1.2 K/mm3 (1.2-5.4); Lymphocytes % (Auto) 13.6 % (13.4-35.0); Mean Corpuscular HGB Conc 33 % (32-34); Mean Corpuscular Volume 88 fl (84-94); Monocytes # (Auto) 0.8 K/mm3 (0.0-0.8); Monocytes % (Auto) 9.1 % (0.0-7.3); Platelet Count 190 K/mm3 (140-440); Red Blood Count 3.37 M/mm3 (3.65-5.03); Red Cell Distribution Width 16.2 % (13.2-15.2)
[2020-09-18] MEDS: ONDANSETRON 4 MG/2 ML INJ IV PRN ×2 (05:41→21:58)
[2020-09-18] MEDS ORDERED: SODIUM CHLORIDE 0.9% 1000 ML 1,000 ML IV SCH (08:30)
--- NOTE | 2020-09-18 09:51 | Progress Note ---
Assessment and Plan - Patient Problems (1) ESRD on hemodialysis Current Visit: Yes Status: Inactive Plan to address problem: orders placed to maintain patient on TTS inpatient hemodialysis schedule. (2) Chest pain Current Visit: Yes Status: Chronic Plan to address problem: cardiology evaluation reviewed. Patient with evidence of pulmonary embolism. Started on appropriate heparin drip therapy. GI consult reviewed for questionable underlying esophagitis which may also be contributing to aforementioned chest pain. Plan for EGD today. (3) Pulmonary embolism Current Visit: Yes Status: Acute Plan to address problem: started on a heparin drip at this time. Management per primary team. (4) Hypertension Current Visit: Yes Status: Chronic Plan to address problem: monitor blood pressures under current regimen. (5) Insulin dependent diabetes mellitus Current Visit: Yes Status: Chronic Plan to address problem: diabetes management per primary attending. (6) Pneumonia Current Visit: Yes Status: Acute Plan to address problem: Please ensure that antibiotics are dosed appropriately for decreased renal function. Subjective Date of service: 09/18/20 Interval history: No acute issues overnight. Pending EGD this am. Objective - Vital Signs Vital signs: Vital Signs - 12hr 09/17/20 09/17/20 09/18/20 23:00 23:11 03:26 Temperature 98.5 F 99.3 F Pulse Rate 102 H 106 H 101 H Respiratory 19 18 Rate Blood Pressure 119/84 118/75 O2 Sat by Pulse 99 96 Oximetry 09/18/20 09/18/20 07:54 08:23 Temperature 98.7 F Pulse Rate 64 Respiratory 20 Rate Blood Pressure 117/73 O2 Sat by Pulse 98 100 Oximetry - General Appearance General appearance: well-developed, appears stated age, obese EENT: ATNC Neck: no JVD Respiratory: Present: Clear to Ascultation Cardiology: regular Gastrointestinal: normal Integumentary: warm and dry Neurologic: no focal deficit, alert and oriented x3 Musculoskeletal: deferred Psychiatric: cooperative - Lab 09/18/20 02:07 09/18/20 02:07 Most recent lab results Calcium 9.0 mg/dL (8.4-10.2) 09/18/20 02:07 Magnesium 1.90 mg/dL (1.7-2.3) 09/18/20 02:07 - Allied health notes Allied health notes reviewed: nursing Medications & Allergies - Medications Allergies/Adverse Reactions: Allergies No Known Allergies Allergy (Verified 07/13/21 14:04) Home Medications: Home Medications Medication Instructions Recorded Confirmed Last Taken Type Ondansetron [Zofran Odt] 4 mg PO Q8HR PRN #20 tab.rapdis 03/08/17 09/17/20 Unknown Rx Promethazine [Phenergan SUPPOS] 50 mg [place] Q6H PRN #20 supp.rect 03/08/17 09/17/20 Unknown Rx Benzonatate [Tessalon Perles] 100 mg PO TID PRN 09/17/20 09/17/20 Unknown History Gabapentin 300 mg PO 3XW 09/17/20 09/17/20 Unknown History Midodrine [Proamatine] 5 mg PO TID 09/17/20 09/17/20 Unknown History Omeprazole 40 mg PO BID 09/17/20 09/17/20 Unknown History lisinopriL [Zestril TAB] 40 mg PO QDAY 09/17/20 09/17/20 Unknown History Active Medications: Generic Name Dose Route Start Last Admin Trade Name Freq PRN Reason Stop Dose Admin Acetaminophen 650 mg 09/17/20 00:26 09/17/20 10:05 Acetaminophen 325 Mg Tab PO 650 mg Q6H PRN Administration Pain, Mild (1-3) Aspirin 325 mg 09/18/20 10:00 Aspirin Ec 325 Mg Tab PO QDAY [facility] Atorvastatin Calcium 40 mg 09/17/20 22:00 09/17/20 21:19 Atorvastatin 40 Mg Tab PO 40 mg QHS [facility] Administration Heparin Sodium (Porcine) 4,500 unit 09/17/20 00:01 Heparin 10,000 Units/10 Ml Vial 40 unit/kg (4500 unit) IV Q6H PRN Anti-Xa Assay<0.1 units/ml Heparin Sodium/Sodium Chloride 25,000 unit in 500 mls @ 30 mls/hr 09/17/20 01:00 09/18/20 02:53 Heparin/ 0.45% Nacl-25,000 Unit/500 Ml IV 1,600 units/hr TITR ELYSIA 32 mls/hr Titration Protocol 1,500 UNITS/HR Ceftriaxone Sodium 2 gm in 100 mls @ 200 mls/hr 09/17/20 10:00 09/17/20 11:30 Rocephin/Ns 2 Gm/100 Ml IV 200 mls/hr Q24HR ELYSIA Administration Protocol Azithromycin 500 mg in 250 mls @ 250 mls/hr 09/17/20 10:00 09/17/20 13:44 Zithromax/Ns IV Not Given Q24HR [facility] Protocol Sodium Chloride 100 mls @ 999 mls/hr 09/17/20 04:41 Nacl 0.9% IV GISELL PRN Hypotension Sodium Chloride 1,000 mls @ 50 mls/hr 09/18/20 08:30 Nacl 0.9% 1000 Ml IV 09/19/20 08:29 DIRECT [facility] Morphine Sulfate 2 mg 09/17/20 00:26 09/17/20 14:46 Morphine 2 Mg/1 Ml Inj IV 2 mg Q5MIN PRN Administration Chest Pain Nitroglycerin 0.4 mg 09/17/20 00:26 Nitroglycerin 0.4 Mg Tab Subl SL Q5M PRN Chest Pain Ondansetron HCl 4 mg 09/17/20 14:25 09/18/20 05:41 Ondansetron 4 Mg/2 Ml Inj IV 4 mg Q4H PRN Administration Nausea And Vomiting Pantoprazole Sodium 40 mg 09/17/20 10:00 09/17/20 10:06 Pantoprazole 40 Mg Tab PO 40 mg QDAY [facility] Administration Promethazine HCl 50 mg 09/17/20 00:31 Promethazine 50 Mg Rect Supp IL Q6H PRN Nausea Sodium Chloride 10 ml 09/17/20 00:26 Sodium Chloride 0.9% 10 Ml Flush Syringe IV PRN PRN LINE FLUSH Tramadol HCl 50 mg 09/17/20 00:26 Tramadol 50 Mg Tab PO Q6H PRN Pain, Moderate (4-6)
--- NOTE | 2020-09-18 09:54 | Electrocardiograph Report ---
[facility] Test Date: 2020-09-18 Test Time: 07:35:24 Pat Name: RENITA HUBBARD Department: Room: A477 1 Gender: M [employer] Professional: BINDU : 1970 Requested By: MEENA VILLA Order Number: [id number] Reading MD: Gonzalo Carlos Measurements Intervals [place] Rate: 103 P: 20 PA: 128 QRS: -23 QRSD: 97 T: 2 QT: 336 QTc: 440 Interpretive Statements Sinus tachycardia Anterior Q waves, possibly due to LVH Compared to ECG 09/16/2020 20:42:52 Left ventricular hypertrophy now present Q waves now present Electronically Signed On 09-18-2020 9:53:58 EDT by Gonzalo Carlos
[2020-09-18] MEDS: ASPIRIN EC 325 MG TAB PO SCH (10:20)
[2020-09-18] MEDS: PANTOPRAZOLE 40 MG TAB PO SCH (10:20)
[2020-09-18] MEDS: cefTRIAXone/NS 2 GM/100 ML 2 GM/100 ML BAG IV SCH ×2 (10:22→18:06)
[2020-09-18] MEDS: AZITHROMYCIN/NS 500 MG/250 ML 500 MG/250 ML BAG IV SCH (10:22)
--- NOTE | 2020-09-18 10:41 | Anesthesia Consultation ---
Anesthesia Consult and Med Hx Date of service: 09/18/20 - Airway Anesthetic Teeth Evaluation: Poor ROM Head & Neck: Adequate Mental/Hyoid Distance: Adequate Mallampati Class: Class II Intubation Access Assessment: Good - Pulmonary Exam CTA: Yes - Cardiac Exam Cardiac Exam: RRR - Pre-Operative Health Status ASA Pre-Surgery Classification: ASA4 Proposed Anesthetic Plan: MAC - Pulmonary Hx Asthma: No SOB: Yes (S/P PE with chest pain) COPD: No Hx Pneumonia: No - Cardiovascular System Hx Hypertension: Yes - Endocrine Hx Renal Disease: Yes (HD ) Hx End Stage Renal Disease: Yes Hx Non-Insulin Dependent Diabetes: Yes - Other Systems Hx Obesity: Yes - Additional Comments Anesthesia Medical History Comments: Pt in hopital for chest pain with PE, increase Triponin levels. D/C heparin gtt this am. Ptn a having EGD to evaluate for an esophageal mass.
--- NOTE | 2020-09-18 10:42 | Anesthesia Day of Surgery ---
Anesthesia Day of Surgery - Day of Surgery Patient Examined: Yes Patient H&P Reviewed: Yes Patient is NPO: Yes
[2020-09-18] MEDS ORDERED: propofoL 200 MG/20 ML VIAL IV ONE (10:51)
--- NOTE | 2020-09-18 11:05 | Electrocardiograph Report ---
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
--- NOTE | 2020-09-18 11:10 | Post Operative Note ---
Pre-op diagnosis: Abnormal CT Esophagus Post-op diagnosis: other (Esophagitis) Findings: 1. No active bleeding UGI tract 2. Normal duodenum/stomach 3. LA Grade C erosive eosophagitis with mild heme - Appears inflammatory (reflux) not malignant - Cold bx taken Procedure: EGD with cold bx Anesthesia: MAC Surgeon: VIOLETTE GUERRERO Estimated blood loss: minimal Pathology: list (1. Lower third esophagus) Specimen disposition: to lab Condition: stable Disposition: floor (Recs: 1. Resume renal diet. 2. OK to resume heparin. 3. Dual therapy with protonix/pepcid for reflux. 4. OK to continue ASA for now (with heparin) but if hct falls, would stop. Avoid other NSAIDs.)
--- NOTE | 2020-09-18 11:20 | Progress Note ---
Assessment and Plan Chest pain * Echocardiogram 09/17/2020: LVEF 55 to 60%. LV normal size. LV SF normal. Mild diastolic dysfunction. RV SF is normal. No valvular abnormalities. * Chest pain is curretly resolved. Patient has no cardiac complaints at this time. * Esophagitis diagnosed per EGD. GI is following Elevated troponin in setting of pulmonary embolism * Currently on heparin drip. * Troponins elevated and trending upward. Will continue to trend troponin Aspiration pneumonia * Management per primary team ESRD on HD secondary to uncontrolled insulin-dependent diabetes * Nephrology is consulted We will continue to trend CE's. Echocardiogram is unremarkable. Will follow This patient was seen in conjunction with Dr Carlos who agrees with this assessment and plan of care - Patient Problems (1) Abnormal CT scan, esophagus Current Visit: Yes Status: Acute (2) DVT prophylaxis Current Visit: Yes Status: Acute (3) Pneumonia Current Visit: Yes Status: Acute (4) Pulmonary embolism Current Visit: Yes Status: Acute (5) Chest pain Current Visit: Yes Status: Chronic (6) Diabetes Current Visit: Yes Status: Chronic (7) Hypertension Current Visit: Yes Status: Chronic (8) Insulin dependent diabetes mellitus Current Visit: Yes Status: Chronic Subjective Date of service: 09/18/20 Principal diagnosis: Chest Pain Interval history: Patient was sitting in bed with no complaints Sinus tachycardia 102 with no events on monitor Objective Last Vital Signs Temp 98.7 F 09/18/20 07:54 Pulse 64 09/18/20 07:54 Resp 20 09/18/20 07:54 BP 117/73 09/18/20 07:54 Pulse Ox 100 09/18/20 08:23 - Physical Examination General: No Apparent Distress HEENT: Positive: PERRL, Normocephaly, Mucus Membranes Moist Neck: Positive: neck supple Cardiac: Positive: Regular Rhythm, Tachycardia Lungs: Positive: Normal Breath Sounds Neuro: Positive: Grossly Intact Abdomen: Positive: Unremarkable, Soft Skin: Negative: Rash, Wound Musculoskeletal: No Pain Extremities: Present: upper extr. pulses. Absent: edema - Labs and Meds CBC 09/18/20 Range/Units 02:07 WBC 8.9 (4.5-11.0) K/mm3 RBC 3.37 L (3.65-5.03) M/mm3 Hgb 9.7 L (11.8-15.2) gm/dl Hct 29.5 L (35.5-45.6) % Plt Count 190 (140-440) K/mm3 Lymph # (Auto) 1.2 (1.2-5.4) K/mm3 Cloud # (Auto) 0.8 (0.0-0.8) K/mm3 Eos # (Auto) 0.3 (0.0-0.4) K/mm3 Baso # (Auto) 0.1 (0.0-0.1) K/mm3 Comprehensive Metabolic Panel 09/18/20 Range/Units 02:07 Sodium 137 (137-145) mmol/L Potassium 4.2 D (3.6-5.0) mmol/L Chloride 97.0 L (98-107) mmol/L Carbon Dioxide 27 (22-30) mmol/L BUN 13 (9-20) mg/dL Creatinine 6.0 H (0.8-1.3) mg/dL Glucose 135 H (75-100) mg/dL Calcium 9.0 (8.4-10.2) mg/dL - Imaging and Cardiology EKG: report reviewed, image reviewed Echo: report reviewed (Record echocardiogram 09/17/2020: LVEF 55 to 60%. LV normal size. LV SF normal. Mild diastolic dysfunction. RV SF is normal. No valvular abnormalities.) - Telemetry EKG Rhythm: Sinus Tachycardia - EKG Sinus rhythms and dysrhythmias: sinus tachycardia - Allied health notes Allied health notes reviewed: nursing
--- NOTE | 2020-09-18 11:23 | Post Anesthesia Evaluation ---
- Post Anesthesia Evaluation Patient Participated: Yes Airway Patent: Yes Stable Respiratory Function: Yes Nausea/Vomiting: No Temp > 96.8F: Yes Pain Manageable: Yes Adequeate Hydration: Yes Anesthesia Complications: No Block Receding Appropriately: Not Applicable Patient on Ventilator: No
--- NOTE | 2020-09-18 13:10 | Operative Report ---
DATE OF SURGERY: 09/18/2020 PROCEDURE PERFORMED: Esophagogastroduodenoscopy with cold biopsy. PREOPERATIVE DIAGNOSIS: Abnormal CT scan of the esophagus, possible mass. POSTOPERATIVE DIAGNOSIS: Severe esophagitis in the lower third, likely inflammatory, status post cold biopsy. ENDOSCOPIST: Vijay Renee MD INSTRUMENT: The Olympus video endoscope. MEDICATIONS: MAC anesthesia by Anesthesia services. COMPLICATIONS: No apparent complications. ESTIMATED BLOOD LOSS: Minimal. SPECIMENS: Lower third of the esophagus and GE junction, rule out malignancy. IMPLANTS: None. ASSISTANTS: None. CONDITION AT COMPLETION: Stable. DESCRIPTION OF PROCEDURE: The patient was informed of the risks and benefits of the procedure. He signed the informed consent to proceed. He was placed in the left lateral decubitus position. The above sedative medications were given. His vital signs remained stable throughout the procedure. The instrument was advanced from the mouth to the second portion of the duodenum under direct visualization. At that point, the bowel was insufflated and the endoscope was slowly withdrawn. FINDINGS: 1. No active bleeding in the upper GI tract. 2. Normal duodenum and stomach. 3. LA grade C erosive esophagitis with mild adherent heme at the base. A. This appears inflammatory related to reflux and not malignant. B. Random cold biopsies were taken. RECOMMENDATIONS: 1. Resume renal diet. 2. Okay to resume heparin. 3. Dual therapy with Protonix and Pepcid for reflux. 4. Okay to continue aspirin for now with his heparin, but if the hematocrit falls, I would stop the aspirin. I would also avoid all other NSAIDs. TID: [id number] RECEIPT: [id number] KEN/HENRI/JASWINDER
--- NOTE | 2020-09-18 15:04 | Progress Note ---
Assessment and Plan --Acute pulmonary embolism Continue supplemental O2 DuoNeb by nebulizer every 4 hours. Heparin drip as per protocol. Echocardiogram showed preserved EF -- NSTEMI likely type II Likely due to underlying end-stage renal disease and bilateral PE Continue aspirin, sublingual nitroglycerin as needed Patient placed on heparin drip and cardiology consulted -- Pneumonia bilateral Oxygen per nasal cannula 3 L/min. DuoNeb by nebulizer every 4 hours as needed. Rocephin 2 g IV daily and Zithromax 500 IV daily. Blood cultures sputum cult ure. Recheck CBC BMP in the morning --Acute hypoxic respiratory failure, due to bilateral pneumonia and acute PE Continue to treat underlying cause, supplemental O2, IV antibiotics Will off O2 as tolerated -- Diabetes mellitus type II patient on 1800 kcal ADA diet. Humalog sliding scale Accu-Chek before meals and at bedtime with moderate dose coverage. -- GERD (gastroesophageal reflux disease) complete questionable esophageal mass cont PPI and pepcid. Consulted GI s/p EGD today -- Hypertension Resume home meds and hydralazine 10 mg IV every 6 hours as needed. We will monitor the blood pressure closely -- ESRD on hemodialysis consulted radiation protection technician for hemodialysis. We will continue the home medication. Recheck BMP in the morning -- DVT prophylaxis Heparin drip for DVT prophylaxis. Protonix 40 mg p.o. daily for GI prophylaxis. Patient is a full code Daily clinical course: 09/17/20; patient currently on heparin drip, continue to follow troponin, consult cardiology. Patient also noted to have possible esophageal mass on CT scan, consulted GI, plan for EGD tomorrow. Continue clear liquid diet for now. 09/18/20; s/p EGD today severe esophagitis, no esophageal mass, cold biopsies were taken. We will continue to trend CE's. Echocardiogram is unremarkable. Continue heparin drip for now, trend H&H. GI also recommended to place the p atient on Pepcid and PPI. We will continue to follow Subjective Date of service: 09/18/20 Principal diagnosis: Chest Pain Interval history: Patient seen and examined. Medical records and medication list reviewed. No acute event overnight noted by the RN. Status post EGD today. Patient tolerated procedure well patient states that he is feeling better now Discussed plan of care at bedside with patient. Objective - Exam Narrative Exam: GENERAL: well-developed and morbidly obese -[place] male lying on bed appeared to be in no discomfort. HEENT: Normocephalic. Atraumatic. No conjunctival congestion or icterus. Pat ient has moist mucous membranes. NECK: Supple. Trachea midline. CHEST/LUNGS: Clear to auscultated bilaterally, breathing nonlabored. No wheezes crackles or rhonchi. HEART/CARDIOVASCULAR: Regular in rate and rhythm. S1 and S2 positive. ABDOMEN: Abdomen is soft, nontender. Patient has normal bowel sounds. SKIN: There is no rash. Warm and dry. NEURO: No focal motor deficit. Follows command. MUSCULOSKELETAL: No joint effusion or tenderness. EXTRIMITY: Bilateral BKA PSYCH: Cooperative. - Constitutional Vitals: Vital Signs - 12hr 09/18/20 09/18/20 09/18/20 03:26 07:54 08:23 Temperature 99.3 F 98.7 F Pulse Rate 101 H 64 Respiratory 18 20 Rate Blood Pressure 118/75 117/73 O2 Sat by Pulse 96 98 100 Oximetry 09/18/20 09/18/20 09/18/20 10:29 11:00 11:05 Temperature 99.1 F 97.8 F Pulse Rate 106 H 98 H 96 H Respiratory 16 12 18 Rate Blood Pressure 113/77 78/37 81/40 O2 Sat by Pulse 96 100 100 Oximetry 09/18/20 09/18/20 09/18/20 11:10 11:15 11:30 Temperature Pulse Rate 98 H 106 H 106 H Respiratory 20 15 14 Rate Blood Pressure 86/50 102/53 117/73 O2 Sat by Pulse 100 100 95 Oximetry 09/18/20 09/18/20 11:45 12:00 Temperature 97.0 F L Pulse Rate 106 H 103 H Respiratory 14 15 Rate Blood Pressure 106/73 114/55 O2 Sat by Pulse 95 95 Oximetry - Labs CBC & Chem 7: 09/19/20 03:52 09/19/20 03:52 Labs: Abnormal lab results 09/17/20 09/17/20 09/17/20 Range/Units 19:11 19:11 20:08 RBC (3.65-5.03) M/mm3 Hgb (11.8-15.2) gm/dl Hct (35.5-45.6) % RDW (13.2-15.2) % [place] % (Auto) (0.0-7.3) % Seg Neutrophils % (40.0-70.0) % Heparin Anti-Xa Level 0.16 L (0.3-0.7) U.I./ml Chloride (98-107) mmol/L Creatinine (0.8-1.3) mg/dL Glucose (75-100) mg/dL POC Glucose 126 H (70-105) mg/dL Troponin T 0.184 H* (0.00-0.029) ng/mL 09/18/20 09/18/20 09/18/20 Range/Units 02:07 02:07 02:07 RBC 3.37 L (3.65-5.03) M/mm3 Hgb 9.7 L (11.8-15.2) gm/dl Hct 29.5 L (35.5-45.6) % RDW 16.2 H (13.2-15.2) % [place] % (Auto) 9.1 H (0.0-7.3) % Seg Neutrophils % 73.5 H (40.0-70.0) % Heparin Anti-Xa Level (0.3-0.7) U.I./ml Chloride 97.0 L (98-107) mmol/L Creatinine 6.0 H (0.8-1.3) mg/dL Glucose 135 H (75-100) mg/dL POC Glucose (70-105) mg/dL Troponin T 0.222 H* D (0.00-0.029) ng/mL 09/18/20 09/18/20 09/18/20 Range/Units 07:55 11:15 13:03 RBC (3.65-5.03) M/mm3 Hgb (11.8-15.2) gm/dl Hct (35.5-45.6) % RDW (13.2-15.2) % [place] % (Auto) (0.0-7.3) % Seg Neutrophils % (40.0-70.0) % Heparin Anti-Xa Level (0.3-0.7) U.I./ml Chloride (98-107) mmol/L Creatinine (0.8-1.3) mg/dL Glucose (75-100) mg/dL POC Glucose 114 H 120 H 109 H (70-105) mg/dL Troponin T (0.00-0.029) ng/mL HEART Score - HEART Score EKG: Non-specific Age: 45-65 Risk factors: 1-2 risk factors Troponin: Troponin T 0.222 ng/mL (0.00-0.029) H* D 09/18/20 02:07 Troponin: 1-3x normal limit
[2020-09-18] MEDS: HEPARIN/ 0.45% NACL DRIP 25,000 UNIT/500 ML BAG IV SCH (15:09)
[2020-09-18] MEDS ORDERED: FAMOTIDINE 20 MG TAB PO SCH (22:00)
[2020-09-19 04:10] LABS: Basophils # (Auto) 0.1 K/mm3 (0.0-0.1); Eosinophils # (Auto) 0.2 K/mm3 (0.0-0.4); Eosinophils % (Auto) 3.8 % (0.0-4.3); Hematocrit 28.6 % (35.5-45.6); Lymphocytes # (Auto) 1.1 K/mm3 (1.2-5.4); Lymphocytes % (Auto) 18.4 % (13.4-35.0); Mean Corpuscular HGB Conc 31 % (32-34); Mean Corpuscular Volume 88 fl (84-94); Monocytes # (Auto) 0.7 K/mm3 (0.0-0.8); Monocytes % (Auto) 10.7 % (0.0-7.3); Platelet Count 211 K/mm3 (140-440); Red Blood Count 3.24 M/mm3 (3.65-5.03); Red Cell Distribution Width 16.5 % (13.2-15.2)
[2020-09-19 04:23] LABS: Calcium 8.9 mg/dL (8.4-10.2)
[2020-09-19] MEDS: HEPARIN/ 0.45% NACL DRIP 25,000 UNIT/500 ML BAG IV SCH (05:43)
[2020-09-19] MEDS: ONDANSETRON 4 MG/2 ML INJ IV PRN ×3 (05:43→17:15)
--- NOTE | 2020-09-19 09:46 | Progress Note ---
<NICOLE RAYMOND - Last Filed: 09/19/20 11:05> Assessment and Plan - Patient Problems (1) Chest pain Current Visit: Yes Status: Chronic (2) DVT prophylaxis Current Visit: Yes Status: Acute (3) GERD (gastroesophageal reflux disease) Current Visit: Yes Status: Chronic (4) Hypertension Current Visit: Yes Status: Chronic (5) Pneumonia Current Visit: Yes Status: Acute (6) Pulmonary embolism Current Visit: Yes Status: Acute (7) ESRD on hemodialysis Current Visit: Yes Status: Inactive (8) Insulin dependent diabetes mellitus Current Visit: Yes Status: Chronic Objective Vital Signs Temp Pulse Resp BP Pulse Ox 09/19/20 08:58 93 09/19/20 07:58 98.1 F 99 H 18 101/68 89 09/19/20 07:00 98 H 09/19/20 03:22 98.4 F 103 H 18 127/72 94 09/18/20 23:19 98.5 F 100 H 18 128/63 90 09/18/20 23:00 98 H 09/18/20 21:00 18 98 09/18/20 20:53 100 09/18/20 19:15 98.8 F 107 H 18 115/87 91 09/18/20 15:00 103 H 09/18/20 12:00 103 H 15 114/55 95 09/18/20 11:45 97.0 F L 106 H 14 106/73 95 09/18/20 11:30 106 H 14 117/73 95 09/18/20 11:15 106 H 15 102/53 100 09/18/20 11:10 98 H 20 86/50 100 - Labs and Meds CBC 09/19/20 Range/Units 03:52 WBC 6.2 (4.5-11.0) K/mm3 RBC 3.24 L (3.65-5.03) M/mm3 Hgb 9.0 L (11.8-15.2) gm/dl Hct 28.6 L (35.5-45.6) % Plt Count 211 (140-440) K/mm3 Lymph # (Auto) 1.1 L (1.2-5.4) K/mm3 [place] # (Auto) 0.7 (0.0-0.8) K/mm3 Eos # (Auto) 0.2 (0.0-0.4) K/mm3 Baso # (Auto) 0.1 (0.0-0.1) K/mm3 Comprehensive Metabolic Panel 09/19/20 Range/Units 03:52 Sodium 138 (137-145) mmol/L Potassium 3.3 L D (3.6-5.0) mmol/L Chloride 98.7 (98-107) mmol/L Carbon Dioxide 26 (22-30) mmol/L BUN 22 H (9-20) mg/dL Creatinine 8.3 H (0.8-1.3) mg/dL Glucose 135 H (75-100) mg/dL Calcium 8.9 (8.4-10.2) mg/dL <COOKIE GUZMAN - Last Filed: 09/19/20 12:01> Assessment and Plan Chest pain * Echocardiogram 09/17/2020: LVEF 55 to 60%. LV normal size. LV SF normal. Mild diastolic dysfunction. RV SF is normal. No valvular abnormalities. * Chest pain is currently resolved. Patient has no cardiac complaints at this time. * Esophagitis diagnosed per EGD. GI is following Elevated troponin in setting of pulmonary embolism * Currently on heparin drip. * Troponins elevated but remaining at 0.2. Appears to be of non-cardiac etiology Aspiration pneumonia * Management per primary team ESRD on HD secondary to uncontrolled insulin-dependent diabetes * Nephrology is consulted From a cardiac standpoint patient is stable and will be seen as needed. Patient can follow up with Dr. Carlos upon discharge at 1:15pm on 10/07/2020 at our [place] location. Phone number [phone] This patient was seen in conjunction with Dr Carlos who agrees with this assessment and plan of care - Patient Problems (1) Abnormal CT scan, esophagus Current Visit: Yes Status: Acute (2) DVT prophylaxis Current Visit: Yes Status: Acute (3) Pneumonia Current Visit: Yes Status: Acute (4) Pulmonary embolism Current Visit: Yes Status: Acute (5) Chest pain Current Visit: Yes Status: Chronic (6) Diabetes Current Visit: Yes Status: Chronic (7) Hypertension Current Visit: Yes Status: Chronic (8) Insulin dependent diabetes mellitus Current Visit: Yes Status: Chronic Subjective Date of service: 09/19/20 Principal diagnosis: Chest Pain Interval history: Patient resting in bed comfortably with no complaints of chest pain or SOB sinus rhythm 95 with no events on the tele Objective Last Vital Signs Temp 98.1 F 09/19/20 07:58 Pulse 99 H 09/19/20 07:58 Resp 18 09/19/20 07:58 BP 101/68 09/19/20 07:58 Pulse Ox 93 09/19/20 08:58 - Physical Examination General: No Apparent Distress HEENT: Positive: PERRL, Normocephaly, Mucus Membranes Moist Neck: Positive: neck supple Cardiac: Positive: Reg Rate and Rhythm Lungs: Positive: Normal Breath Sounds Neuro: Positive: Grossly Intact Abdomen: Positive: Unremarkable, Soft Skin: Negative: Rash, Wound Musculoskeletal: No Pain Extremities: Present: upper extr. pulses. Absent: edema - Labs and Meds CBC 09/19/20 Range/Units 03:52 WBC 6.2 (4.5-11.0) K/mm3 RBC 3.24 L (3.65-5.03) M/mm3 Hgb 9.0 L (11.8-15.2) gm/dl Hct 28.6 L (35.5-45.6) % Plt Count 211 (140-440) K/mm3 Lymph # (Auto) 1.1 L (1.2-5.4) K/mm3 [place] # (Auto) 0.7 (0.0-0.8) K/mm3 Eos # (Auto) 0.2 (0.0-0.4) K/mm3 Baso # (Auto) 0.1 (0.0-0.1) K/mm3 Comprehensive Metabolic Panel 09/19/20 Range/Units 03:52 Sodium 138 (137-145) mmol/L Potassium 3.3 L D (3.6-5.0) mmol/L Chloride 98.7 (98-107) mmol/L Carbon Dioxide 26 (22-30) mmol/L BUN 22 H (9-20) mg/dL Creatinine 8.3 H (0.8-1.3) mg/dL Glucose 135 H (75-100) mg/dL Calcium 8.9 (8.4-10.2) mg/dL - Imaging and Cardiology EKG: report reviewed, image reviewed Echo: report reviewed (Record echocardiogram 09/17/2020: LVEF 55 to 60%. LV normal size. LV SF normal. Mild diastolic dysfunction. RV SF is normal. No valvular abnormalities.) - Telemetry EKG Rhythm: Sinus Rhythm - EKG Sinus rhythms and dysrhythmias: sinus rhythm - Allied health notes Allied health notes reviewed: nursing
[2020-09-19] MEDS ORDERED: AZITHROMYCIN 250 MG TAB PO SCH (10:00)
[2020-09-19] MEDS: cefTRIAXone/NS 2 GM/100 ML 2 GM/100 ML BAG IV SCH (10:06)
[2020-09-19] MEDS: ASPIRIN EC 325 MG TAB PO SCH (10:06)
[2020-09-19] MEDS: PANTOPRAZOLE 40 MG TAB PO SCH (10:06)
[2020-09-19] MEDS: MORPHINE 2 MG/1 ML INJ IV PRN (11:42)
--- NOTE | 2020-09-19 16:41 | Discharge Summary ---
Providers - Providers Date of Admission: 09/17/20 15:08 Date of discharge: 09/19/20 Attending physician: MARIBEL BANEGAS 09/16/20 22:24 Consult to Physician [CONS] Urgent Comment: Consulting Provider: JOHN COVINGTON Physician Instructions: Reason For Exam: Needs dialysis 09/17/20 Consult to Cardiac Rehabilitation [CONS] Routine Reason For Exam: Phase I 09/17/20 00:26 Consult to Cardiology [CONS] Routine Consulting Provider: PING LOPEZ Reason For Exam: Chest pain 09/17/20 10:38 Consult to Physician [CONS] Routine Comment: Consulting Provider: VIOLETTE GUERRERO Physician Instructions: Reason For Exam: possible esophageal mass Primary care physician: DOUGH PANNER Hospitalization Condition: Fair Pertinent studies: Chest x-ray, chest CTA, 2D echocardiogram Procedures: EGD Hospital course: This patient is a 50-year-old male with a significant history of insulin- dependent diabetes status post bilateral below-knee amputations due to diabetic complication, end-stage renal disease on dialysis, hypertension, gastroparesis presented to [facility] ER with chief complaint of nausea/vomiting x1 week with associated epigastric pain. In the emergency room patient CT scan shows pulmonary embolism, questionable esophageal mass and aspiration pneumonia. Patient also has elevated troponin 0 0.176. Patient BUN is 28 creatinine 9.0. Patient was initiated on heparin drip and admitted to the hospital for further evaluation and management. Daily clinical course: 09/17/20; patient currently on heparin drip, continue to follow troponin, consult cardiology. Patient also noted to have possible esophageal mass on CT scan, consulted GI, plan for EGD tomorrow. Continue clear liquid diet for now. 09/18/20; s/p EGD today severe esophagitis, no esophageal mass, cold biopsies were taken. We will continue to trend CE's. Echocardiogram is unremarkable. Continue heparin drip for now, trend H&H. GI also recommended to place the patient on Pepcid and PPI. We will continue to follow 09/19/20: patient clinically stable. stop heparin drip and changes to eliquis. LVEF 55 to 60%. Patient will follow up with Dr. Carlos upon discharge at 1:15pm on 10/07/2020 at [facility]. Phone number [phone]. Discharge pl anning management was thoroughly discussed with the patient and he verbalized understanding. Discharge patient home with home health and outpatient follow- up. Disposition: [id number] HOME UNDER HOME HLTH Final Discharge Diagnosis (Prints w/discharge instructions): --Acute pulmonary embolism. --NSTEMI type II. --Bilateral pneumonia likely community- acquired/aspiration. --Acute hypoxic respiratory failure, resolved. --Diabetes mellitus type 2. --GERD with severe esophagitis. --Hypertension. --End-stage renal disease on hemodialysis. --Status post bilateral BKA. --Morbid obesity Core Measure Documentation - Palliative Care Palliative Care/ Comfort Measures: Not Applicable - Core Measures Any of the following diagnoses?: none Exam - Physical Exam Narrative exam: GENERAL: well-developed and morbidly obese -[place] male lying on bed appeared to be in no discomfort. HEENT: Normocephalic. Atraumatic. No conjunctival congestion or icterus. Patient has moist mucous membranes. NECK: Supple. Trachea midline. CHEST/LUNGS: Clear to auscultated bilaterally, breathing nonlabored. No wheezes crackles or rhonchi. HEART/CARDIOVASCULAR: Regular in rate and rhythm. S1 and S2 positive. ABDOMEN: Abdomen is soft, nontender. Patient has normal bowel sounds. SKIN: There is no rash. Warm and dry. NEURO: No focal motor deficit. Follows command. MUSCULOSKELETAL: No joint effusion or tenderness. EXTRIMITY: Bilateral BKA PSYCH: Cooperative. - Constitutional Vitals: Temp Pulse Resp BP Pulse Ox 98.3 F 112 H 18 139/87 93 09/19/20 14:40 09/19/20 14:40 09/19/20 14:40 09/19/20 14:40 09/19/20 08:58 Plan Activity: advance as tolerated Diet: diabetic, renal Special Instructions: home health RN Additional Instructions: Follow-up with Dr. Carlos in 1 week Follow up with: PRIMARY CARE, [Primary Care Provider] - 3-5 Days Prescriptions: Famotidine [Pepcid] 20 mg PO QHS #30 tablet
[2020-09-19] MEDS ORDERED: APIXABAN 5 MG TAB PO SCH (17:00)
[2020-09-19 17:07] VITALS: BP 86/48
[2020-09-19] MEDS ORDERED: MIDODRINE 5 MG TAB PO SCH (18:00)
== END 2020-09-19 19:32 | disposition home health service (06) | DRG 175 ==
LOC: ED 20:06 → 4A 09-17 00:12 → OBSVTOIN 09-17 15:08 → 4A 09-17 16:01
PROVIDERS: ADMIT Hospitalist; ATTEND Internal Medicine
PROC: 5A1D70Z Performance of Urinary Filtration, Intermittent, Less than 6 Hours Per Day (ICD-10-PCS; 2020-09-17)
PROC: 0DB38ZX Excision of Lower Esophagus, Via Natural or Artificial Opening Endoscopic, Diagnostic (ICD-10-PCS; principal; 2020-09-18)
PROC: 5A1D70Z Performance of Urinary Filtration, Intermittent, Less than 6 Hours Per Day (ICD-10-PCS; 2020-09-19)
DX: I26.99 Other pulmonary embolism without acute cor pulmonale (principal); I21.A1 Myocardial infarction type 2; J69.0 Pneumonitis due to inhalation of food and vomit; J96.01 Acute respiratory failure with hypoxia; N18.6 End stage renal disease; I12.0 Hypertensive chronic kidney disease with stage 5 chronic kidney disease or end stage renal disease; I24.9 Acute ischemic heart disease, unspecified; K21.00 Gastro-esophageal reflux disease with esophagitis, without bleeding; E11.22 Type 2 diabetes mellitus with diabetic chronic kidney disease; E66.01 Morbid (severe) obesity due to excess calories; Z79.4 Long term (current) use of insulin; Z89.512 Acquired absence of left leg below knee; Z89.511 Acquired absence of right leg below knee; Z68.38 Body mass index [BMI] 38.0-38.9, adult; Z99.2 Dependence on renal dialysis; Z79.899 Other long term (current) drug therapy
CPT/HCPCS: 36415; 71046; 71275; 80048; 80061; 80074; 82962; 83735; 84484; 85014; 85018; 85025; 85379; 85520; 85610; 85730; 87040; 88305; 88312; 93005; 93306; 96374; 96375; G0378; A9270-GY; J0456; J0696; J1644; J2270; J2405; J2704; J3010; J3480; Q9967

== ENCOUNTER 2020-09-27 17:44 | Inpatient (IN) | payer MEDICARE ==
[2020-09-27] MEDS ORDERED: SODIUM CHLORIDE 0.9% 500 ML 500 ML ONE (18:25)
[2020-09-27] MEDS ORDERED: SODIUM CHLORIDE 0.9% 500 ML 500 ML IV ONE (18:27)
[2020-09-27] MEDS ORDERED: ONDANSETRON 4 MG/2 ML INJ IV ONE ×2 (18:28→20:08)
[2020-09-27] MEDS ORDERED: PANTOPRAZOLE 40 MG INJ IV ONE (18:28)
--- NOTE | 2020-09-27 18:29 | Emergency Department Report ---
HPI - General Chief Complaint: GI Bleed Time Seen by Provider: 09/27/20 18:17 - HPI HPI: 50-year-old male with history of hypertension, DM 2, CAD, bilateral BKA, and history of DVT/PE on Eliquis as well as ESRD on HD // is brought in by EMS due to hypotension discovered by his nurse at home. The patient states that for the past 2 months or so he has been experiencing chronic nausea with vomiting at least 10 times per day. He says there are blood clots in his vomitus. He also reports that for the past 3 days he has not had a bowel movement. When his nurse came to assess him today he was noted to have a blood pressure of 80s/40s and a heart rate of 115. He says his only complaint is nausea. He has not missed any dialysis sessions. He denies experiencing any headache, vision change, fever/chills, chest pain, shortness of breath, abdominal pain, melena, hematochezia, back pain, focal weakness, sensory changes, or any other complaints. He denies missing any of his dialysis sessions. He gets dialyzed through a catheter in his chest. He says his last dialysis was yesterday. ED Past Medical Hx - Past Medical History Previous Medical History?: Yes Hx Hypertension: Yes Hx Congestive Heart Failure: No Hx Diabetes: Yes Hx GERD: Yes Hx Renal Disease: Yes (HD ) Hx Asthma: No Hx COPD: No Hx HIV: No - Surgical History Past Surgical History?: Yes Additional Surgical History: Bilateral BKA's - Social History Smoking Status: Unknown if ever smoked Substance Use Type: None - Medications Home Medications: Home Medications Medication Instructions Recorded Confirmed Last Taken Type Ondansetron [Zofran ODT TAB] 4 mg PO Q8HR PRN #20 tab.rapdis 03/08/17 09/28/20 Unknown Rx Benzonatate [Tessalon Perles] 100 mg PO TID PRN 09/17/20 09/28/20 Unknown History Gabapentin 300 mg PO 3XW 09/17/20 09/28/20 Unknown History Midodrine [Proamatine] 5 mg PO TID 09/17/20 09/28/20 Unknown History Apixaban [Eliquis starter pack] 5 mg PO BID #60 tab.ds.pk 09/19/20 09/28/20 Unknown Rx AtorvaSTATin [Lipitor] 40 mg PO QHS #30 tablet 09/19/20 09/28/20 Unknown Rx Famotidine [Pepcid] 20 mg PO QHS #30 tablet 09/19/20 09/28/20 Unknown Rx Pantoprazole [Protonix TAB] 40 mg PO QDAY #30 tablet 09/19/20 09/28/20 Unknown Rx Metoclopramide [Reglan TAB] 10 mg PO TID 09/28/20 09/28/20 Unknown History Sodium Bicarbonate 650 mg PO BID 09/28/20 09/28/20 Unknown History ED Review of Systems ROS: Stated complaint: HYPOTENSION Other details as noted in HPI Constitutional: denies: chills, fever Eyes: denies: eye pain, vision change ENT: denies: throat pain, congestion Respiratory: denies: cough, shortness of breath Cardiovascular: denies: chest pain, palpitations, syncope Gastrointestinal: nausea, vomiting, constipation, hematemesis. denies: abdominal pain, diarrhea Genitourinary: denies: dysuria, frequency Musculoskeletal: denies: back pain, myalgia Skin: denies: rash, lesions Neurological: denies: headache, weakness, numbness Physical Exam - Physical Exam Vital Signs: Vital Signs 09/27/20 09/27/20 18:05 18:10 Temperature 99.4 F Pulse Rate 115 H Respiratory 14 Rate Blood Pressure 85/57 O2 Sat by Pulse 96 Oximetry Physical Exam: GENERAL: Well developed and well nourished. No acute distress HEAD: Normocephalic. No obvious signs of trauma. ENT: Moist mucous membranes. EYES: Extraocular movements are intact. Pupils are equal round and reactive to light bilaterally NECK: Supple. Full ROM is intact. Trachea is midline. LUNGS: Nonlabored breathing. Equal chest rise bilaterally. Clear to auscultation bilaterally. CARDIOVASCULAR: Tachycardic but with regular rhythm. No murmurs or rubs. VASCULAR: Cap refill < 2 seconds ABDOMEN: Abdomen is distended but soft and without significant tenderness, guarding, or rebound. SKIN: Skin is warm and dry NEURO: Patient is awake, alert, and oriented. ball holder II-XII grossly intact. No focal deficits. Normal motor and sensory exam throughout. Normal speech. MUSCULOSKELETAL: Bilateral BKA amputations noted. Otherwise no deformities. No significant tenderness. Normal ROM throughout. BACK/SPINE: No costovertebral angle tenderness. ED Course Vital Signs 09/27/20 09/27/20 18:05 18:10 Temperature 99.4 F Pulse Rate 115 H Respiratory 14 Rate Blood Pressure 85/57 O2 Sat by Pulse 96 Oximetry ED Medical Decision Making - Lab Data Result diagrams: 09/28/20 14:30 09/28/20 05:41 Lab Results 09/27/20 09/27/20 09/27/20 Range/Units 19:04 19:04 19:04 WBC 7.5 (4.5-11.0) K/mm3 RBC 3.59 L (3.65-5.03) M/mm3 Hgb 10.4 L (11.8-15.2) gm/dl Hct 31.7 L (35.5-45.6) % MCV 88 (84-94) fl MCH 29 (28-32) pg MCHC 33 (32-34) % RDW 16.8 H (13.2-15.2) % Plt Count 260 (140-440) K/mm3 Lymph % (Auto) 19.0 (13.4-35.0) % [place] % (Auto) 12.4 H (0.0-7.3) % Eos % (Auto) 1.3 (0.0-4.3) % Baso % (Auto) 0.9 (0.0-1.8) % Lymph # (Auto) 1.4 (1.2-5.4) K/mm3 [place] # (Auto) 0.9 H (0.0-0.8) K/mm3 Eos # (Auto) 0.1 (0.0-0.4) K/mm3 Baso # (Auto) 0.1 (0.0-0.1) K/mm3 Seg Neutrophils % 66.4 (40.0-70.0) % Seg Neutrophils # 5.0 (1.8-7.7) K/mm3 PT 19.1 H (12.2-14.9) Sec. INR 1.54 H (0.87-1.13) APTT 34.8 (24.2-36.6) Sec. Sodium (137-145) mmol/L Potassium (3.6-5.0) mmol/L Chloride (98-107) mmol/L Carbon Dioxide (22-30) mmol/L Anion Gap mmol/L BUN (9-20) mg/dL Creatinine (0.8-1.3) mg/dL Estimated GFR ml/min BUN/Creatinine Ratio % Glucose (75-100) mg/dL Lactic Acid 1.90 (0.7-2.0) mmol/L Calcium (8.4-10.2) mg/dL Magnesium (1.7-2.3) mg/dL Total Bilirubin (0.1-1.2) mg/dL Direct Bilirubin (0-0.2) mg/dL Indirect Bilirubin mg/dL AST (5-40) units/L ALT (7-56) units/L Alkaline Phosphatase (35-129) units/L Troponin T (0.00-0.029) ng/mL NT-Pro-B Natriuret Pep (0-900) pg/mL Total Protein (6.3-8.2) g/dL Albumin (3.9-5) g/dL Albumin/Globulin Ratio % Triglycerides (2-149) mg/dL Cholesterol (50-199) mg/dL LDL Cholesterol Direct (50-130) mg/dL HDL Cholesterol (40-59) mg/dL Cholesterol/HDL Ratio % Lipase (13-60) units/L Blood Type Antibody Screen 09/27/20 09/27/20 09/27/20 Range/Units 19:04 19:04 21:11 WBC (4.5-11.0) K/mm3 RBC (3.65-5.03) M/mm3 Hgb (11.8-15.2) gm/dl Hct (35.5-45.6) % MCV (84-94) fl MCH (28-32) pg MCHC (32-34) % RDW (13.2-15.2) % Plt Count (140-440) K/mm3 Lymph % (Auto) (13.4-35.0) % [place] % (Auto) (0.0-7.3) % Eos % (Auto) (0.0-4.3) % Baso % (Auto) (0.0-1.8) % Lymph # (Auto) (1.2-5.4) K/mm3 [place] # (Auto) (0.0-0.8) K/mm3 Eos # (Auto) (0.0-0.4) K/mm3 Baso # (Auto) (0.0-0.1) K/mm3 Seg Neutrophils % (40.0-70.0) % Seg Neutrophils # (1.8-7.7) K/mm3 PT (12.2-14.9) Sec. INR (0.87-1.13) APTT (24.2-36.6) Sec. Sodium 136 L (137-145) mmol/L Potassium 2.7 L* (3.6-5.0) mmol/L Chloride 92.1 L (98-107) mmol/L Carbon Dioxide 29 (22-30) mmol/L Anion Gap 18 mmol/L BUN 16 (9-20) mg/dL Creatinine 8.6 H (0.8-1.3) mg/dL Estimated GFR 8 ml/min BUN/Creatinine Ratio 2 % Glucose 190 H (75-100) mg/dL Lactic Acid 2.70 H* (0.7-2.0) mmol/L Calcium 9.3 (8.4-10.2) mg/dL Magnesium 2.10 (1.7-2.3) mg/dL Total Bilirubin 0.20 (0.1-1.2) mg/dL Direct Bilirubin < 0.2 (0-0.2) mg/dL Indirect Bilirubin 0.0 mg/dL AST 15 (5-40) units/L ALT 9 (7-56) units/L Alkaline Phosphatase 94 (35-129) units/L Troponin T 0.212 H* (0.00-0.029) ng/mL NT-Pro-B Natriuret Pep 477.2 (0-900) pg/mL Total Protein 7.8 (6.3-8.2) g/dL Albumin 3.6 L (3.9-5) g/dL Albumin/Globulin Ratio 0.9 % Triglycerides 128 (2-149) mg/dL Cholesterol 113 (50-199) mg/dL LDL Cholesterol Direct 45 L (50-130) mg/dL HDL Cholesterol 54 (40-59) mg/dL Cholesterol/HDL Ratio 2.09 % Lipase 30 (13-60) units/L Blood Type O POSITIVE Antibody Screen Negative - EKG Data -: EKG Interpreted by Me - EKG Data 09/28/20 20:09 Normal sinus rhythm. Normal axis. Normal intervals. No ectopy. No significant ST segment or T wave abnormalities. - Radiology Data Radiology results: report reviewed interpreted by me: Chest x-ray shows nonspecific density in the right lower lobe. CT of the abdomen pelvis shows no intra-abdominal abnormalities with the exception of bladder wall thickening, as well as interstitial prominence noted at the inferior aspect of the bilateral lungs more significantly on the right which could represent pneumonia. - Medical Decision Making 50-year-old male with history of hypertension, DM 2, CAD, bilateral BKA, and history of DVT/PE on Eliquis as well as ESRD on HD // is brought in by EMS due to hypotension discovered by his nurse at home. He has been experiencing chronic nausea for the past 2 months which has caused him to vomit at least 10 times per day, sometimes containing blood clots. The patient is on Eliquis. The patient also notes that he has been constipated and has not had a bowel movement for the past 3 days. On initial assessment, the patient is afebrile but with a temperature of 99.4, hypotensive with a blood pressure of 85/57, tachycardic in the 110s, and satting 95% on room air. Physical examination reveals moist mucous membranes, clear lung ramirez, and no significant abdominal tenderness but with abdominal distention. He has a dialysis catheter to the right upper chest wall in place. We will send full set of labs including the sepsis order set which was initiated. We will give 500 cc of IV fluids, Zofran, and 80 mg of IV pantoprazole in case there is a upper GI bleed. In addition, we will obtain CT of the abdomen and pelvis to assess for evidence of SBO versus other intra-abdominal abnormality given that the patient has nausea and vomiting and has not had a bowel movement in 3 days. After placing orders, I returned to the patient's room and performed a digital rectal exam with the nurse Vijay present as a entertainment agent. My exam revealed brown- colored stool in the rectal vault which does not appear melanotic but is Hemoccult positive. Chest x-ray shows nonspecific finding of increased density in the right lower lobe On repeat assessment at 7:26 PM, the patient's blood pressure is improved to 100/62. Diagnostic studies are still pending. The patient states he feels much better after receiving Zofran. Labs have resulted and reveal white blood cell count of 7.5 and hemoglobin of 10.4. Chemistry panel reveals expectedly elevated creatinine of 8.6 and BUN of 16, however there is significant hypokalemia with a potassium of 2.7. We will g elise potassium repletion with 40 mEq p.o. and 40 mEq IV to be run over 4 hours. Troponin has returned elevated at 0.212. The patient's EKG does not show any anatomically significant ST segment abnormalities. Although this is likely a type II troponin leak due to the patient's renal insufficiency and presentation with hypotension, we will consult cardiology At 8:46 PM I spoke with Dr. Vera of cardiology regarding the case. He reviewed the EKG and states there is no STEMI and that he agrees with my assessment of a type II troponin leak. He recommends continuing the patient's Eliquis if possible with his potential GI bleed. At 8:50 PM, I spoke with Dr. Alvarez of nephrology regarding the case, he states that he will follow up the patient's full diagnostic work-up and place orders as necessary for dialysis and/or give inpatient recommendations. On repeat assessment at 9 PM, the patient has developed vomiting again. We will give an additional 4 mg of Zofran. Blood pressure remained stable in the 110s/60s. CT of the abdomen and pelvis shows no acute findings within the abdomen with the exception of bladder wall thickening which could represent a urinary tract infection. In addition, it shows interstitial prominence of the bilateral lower lung ramirez most significantly on the right which could represent pneumonia. I spoke to the patient about his urinary output and he states he has not had any urine output in the past 3 days. I asked him whether he might be able to urinate now and he said he would try. We will send a urine sample for urinalysis and urine culture. Given that the patient has healthcare exposure we will give broad-spectrum cefepime and azithromycin which would cover both pneumonia and potential urinary tract infection. The patient's blood pressure remained stable and his heart rate has improved to the low 100s At 9:54 PM I spoke with Dr. Porter of gastroenterology regarding the case. He agrees with my current management and states that he will consult and give further inpatient recommendations. At 9:57 PM I spoke with Dr. Saldaña, the on-call hospitalist regarding the case. He accepts the patient for admission and will assume care. He asked that I initiate the COVID-19 order set for the patient and states that he will follow up on these results. The patient's diagnoses were explained to him as well as the need for admission. He expressed understanding and agreement with the plan of care. Critical Care Time: Yes Critical care time in (mins) excluding proc time.: 85 Critical care attestation.: If time is entered above; I have spent that time in minutes in the direct care of this critically ill patient, excluding procedure time. ED Disposition Clinical Impression: End stage renal disease on dialysis, Hypokalemia, Non-STEMI (non-ST elevated myocardial infarction), Insulin dependent diabetes mellitus Nausea and vomiting Qualifiers: Vomiting Intractability: intractable GI bleed Qualifiers: GI bleed type/associated pathology: unspecified gastrointestinal hemorrhage type Qualified Code(s): K92.2 - Gastrointestinal hemorrhage, unspecified Hypotension Qualifiers: Hypotension type: unspecified hypotension type Qualified Code(s): I95.9 - Hypotension, unspecified Pneumonia Qualifiers: Aspiration pneumonia type: unspecified Laterality: unspecified laterality Lung location: unspecified part of lung Disposition: DC-09 OP ADMIT IP TO THIS HOSP Is pt being admited?: Yes Condition: Serious
[2020-09-27] MEDS ORDERED: ONDANSETRON 4 MG/2 ML INJ ONE (18:30)
--- NOTE | 2020-09-27 19:04 | XRay Report ---
CHEST 1 VIEW 09/27/2020 5:52 PM INDICATION / CLINICAL INFORMATION: sepsis. COMPARISON: None available. FINDINGS: SUPPORT DEVICES: Right Vas-Cath is satisfactory in position HEART / MEDIASTINUM: No significant abnormality. LUNGS / PLEURA: Increased density in the right lower lung No pneumothorax. Signer Name: Jose Carvajal MD Signed: 09/27/2020 6:59 PM Workstation Name: [id number]
[2020-09-27 19:32] LABS: Basophils # (Auto) 0.1 K/mm3 (0.0-0.1); Basophils % (Auto) 0.9 % (0.0-1.8); Eosinophils # (Auto) 0.1 K/mm3 (0.0-0.4); Eosinophils % (Auto) 1.3 % (0.0-4.3); Hematocrit 31.7 % (35.5-45.6); Hemoglobin 10.4 gm/dl (11.8-15.2); Lymphocytes # (Auto) 1.4 K/mm3 (1.2-5.4); Mean Corpuscular HGB Conc 33 % (32-34); Mean Corpuscular Volume 88 fl (84-94); Monocytes # (Auto) 0.9 K/mm3 (0.0-0.8); Monocytes % (Auto) 12.4 % (0.0-7.3); Platelet Count 260 K/mm3 (140-440); Red Blood Count 3.59 M/mm3 (3.65-5.03); Red Cell Distribution Width 16.8 % (13.2-15.2)
[2020-09-27 19:43] LABS: Alanine Aminotransferase 9 units/L (7-56); Albumin 3.6 g/dL (3.9-5); Blood Urea Nitrogen 16 mg/dL (9-20); Calcium 9.3 mg/dL (8.4-10.2); Hemolysis Index 3
[2020-09-27 19:49] LABS: INR 1.54 (0.87-1.13)
[2020-09-27 19:50] LABS: Partial Thromboplastin Time 34.8 Sec. (24.2-36.6)
[2020-09-27 20:00] LABS: BUN/Creatinine Ratio 2; Bilirubin,Direct < 0.2 mg/dL (0-0.2)
[2020-09-27] MEDS ORDERED: POTASSIUM CHLORIDE ER 20 MEQ TAB PO ONE (20:08)
[2020-09-27 20:41] LABS: Chol/HDL Ratio 2.09 %; HDL Cholesterol 54 mg/dL (40-59); LDL Cholesterol,Direct 45 mg/dL (50-130)
[2020-09-27] MEDS ORDERED: POTASSIUM CHLORIDE 20 MEQ 20 MEQ/100 ML BAG IV SCH (21:00)
--- NOTE | 2020-09-27 21:23 | Cat Scan Report ---
CT ABDOMEN AND PELVIS WITHOUT CONTRAST HISTORY: Pt complains of nausea and vomiting x 2 months. possible S.B.O.. COMPARISON: None. TECHNIQUE: CT images of the abdomen and pelvis were obtained without administration of intravenous co ntrast. All CT scans at this location are performed using CT dose reduction for ALARA by means of au tomated exposure control. FINDINGS: Lungs/bones: There is increase opacities/infiltrates within the lower lung Abdomen/pelvis: Within limits of a noncontrast exam the liver, spleen, adrenal glands, pancreas, gal lbladder and upper GI tract appear normal. Hiatal hernia is noted. No renal or ureteral stones are se en. No bowel obstruction. No focal inflammatory change in the bowel loops. Urinary bladder wall appea rs thickened IMPRESSION: 1. No bowel obstruction. No focal inflammatory change. 2. Bladder wall thickening. No definite renal or ureteral stone. Mild inflammation surrounding the ki dneys may be chronic. Signer Name: Jose Carvajal MD Signed: 09/27/2020 9:19 PM Workstation Name: [id number]
[2020-09-27] MEDS ORDERED: CEFEPIME/NS 2 GM/100 ML 2 GM/100 ML BAG IV ONE (21:36)
[2020-09-27] MEDS ORDERED: AZITHROMYCIN 250 MG TAB PO ONE (21:37)
[2020-09-27] MEDS: POTASSIUM CHLORIDE 10 MEQ 10 MEQ/100 ML BAG IV SCH (21:40)
[2020-09-27] MEDS ORDERED: DEXTROSE 50% IN WATER (25GM) 50 ML SYRINGE IV PRN (22:24)
[2020-09-27] MEDS ORDERED: MORPHINE 2 MG/1 ML INJ IV PRN (22:24)
[2020-09-27] MEDS ORDERED: MORPHINE 4 MG/1 ML INJ IV PRN (22:24)
[2020-09-27] MEDS ORDERED: ACETAMINOPHEN 325 MG TAB PO PRN (22:24)
[2020-09-27] MEDS ORDERED: MAGNESIUM HYDROXIDE (MOM) ORAL LIQD UDC PO PRN (22:24)
--- NOTE | 2020-09-27 22:44 | History and Physical Report ---
History of Present Illness Date of examination: 09/27/20 Date of admission: 09/27/2020 Chief complaint: Nausea and vomiting History of present illness: 50-year-old male with known history of hypertension, diabetes mellitus, coronary artery disease, bilateral BKA and history of DVT/PE currently on Eliquis, end- stage renal disease on dialysis on Tuesdays, and Saturdays was brought into the emergency room today by EMS for hypotension while at home. Patient was said to be hypotensive when seen by his nurse at home. Systolic blood pressure was said to be in the 80s and diastolic in the 50s. Patient also indicates that he has been having chronic nausea and vomiting over the past 2 months. Vomitus has been coffee-ground at times. He denies use of any nonsteroidal anti-inflammatory medication. He denies any fever or chills, no chest pain or shortness of breath, no abdominal pain, no hematuria or dysuria, no diarrhea, denies any melena or hematochezia. No headache or dizziness. Patient has been compliant with his dialysis. Work-up in the emergency room today reveals hypokalemia of 2.7 Chest x-ray shows increased density in the right lower lung, no pneumothorax. CT of the abdomen and pelvis reveals no bowel obstruction, bladder wall thickening, mild inflammation surrounding the kidneys may be chronic. There is also increased opacity/infiltrates within the lower lung. Patient is being admitted with nausea and vomiting, pneumonia, GI bleed and hypokalemia. Past History Past Medical History: diabetes, dialysis, ESRD, GERD, hypertension Past Surgical History: Other (Bilateral BKA) Social history: no significant social history, full code Family history: no significant family history Medications and Allergies Allergies Allergy/AdvReac Type Severity Reaction Status Date / Time No Known Allergies Allergy Verified 09/17/20 14:04 Home Medications Medication Instructions Recorded Confirmed Last Taken Type Ondansetron [Zofran ODT TAB] 4 mg PO Q8HR PRN #20 tab.rapdis 03/08/17 09/17/20 Unknown Rx Promethazine [Phenergan SUPPOS] 50 mg GA Q6H PRN #20 supp.rect 03/08/17 09/17/20 Unknown Rx Benzonatate [Tessalon Perles] 100 mg PO TID PRN 09/17/20 09/17/20 Unknown History Gabapentin 300 mg PO 3XW 09/17/20 09/17/20 Unknown History Midodrine [Proamatine] 5 mg PO TID 09/17/20 09/17/20 Unknown History Apixaban [Eliquis starter pack] 5 mg PO BID #60 tab.ds.pk 09/19/20 Unknown Rx AtorvaSTATin [Lipitor] 40 mg PO QHS #30 tablet 09/19/20 Unknown Rx Azithromycin [Zithromax TAB] 500 mg PO QDAY #5 tablet 09/19/20 Unknown Rx Famotidine [Pepcid] 20 mg PO QHS #30 tablet 09/19/20 Unknown Rx Pantoprazole [Protonix TAB] 40 mg PO QDAY #30 tablet 09/19/20 Unknown Rx Active Meds: Active Medications Acetaminophen (Acetaminophen 325 Mg Tab) 650 mg PO Q4H PRN PRN Reason: Pain MILD(1-3)/Fever >100.5/BUSH Dextrose (Dextrose 50% In Water (25gm) 50 Ml Syringe) 50 ml IV Q30MIN PRN; Protocol PRN Reason: Hypoglycemia Potassium Chloride (Kcl 10meq/100ml) 10 meq in 100 mls @ 100 mls/hr IV Q1H ELYSIA Stop: 09/28/20 00:59 Last Admin: 09/27/20 21:40 Dose: 100 mls/hr Documented by: Sodium Chloride (Nacl 0.9% 1000 Ml) 1,000 mls @ 75 mls/hr IV DIRECT ELYSIA Cefepime HCl (Cefepime/Ns 2 Gm/100 Ml) 2 gm in 100 mls @ 200 mls/hr IV Q8H ELYSIA; Protocol Pantoprazole Sodium 80 mg/ (Sodium Chloride) 100 mls @ 10 mls/hr IV DIRECT ELYSIA Insulin Human Lispro (Insulin Lispro 100 Unit/Ml) 0 unit SUB-Q ACHS ELYSIA; Protocol Magnesium Hydroxide (Magnesium Hydroxide (Mom) Oral Liqd Udc) 30 ml PO Q4H PRN PRN Reason: Constipation Morphine Sulfate (Morphine 2 Mg/1 Ml Inj) 2 mg IV Q4H PRN PRN Reason: Pain, Moderate (4-6) Morphine Sulfate (Morphine 4 Mg/1 Ml Inj) 4 mg IV Q4H PRN PRN Reason: Pain , Severe (7-10) Ondansetron HCl (Ondansetron 4 Mg/2 Ml Inj) 4 mg IV Q8H PRN PRN Reason: Nausea And Vomiting Sodium Chloride (Sodium Chloride 0.9% 10 Ml Flush Syringe) 10 ml IV BID ELYSIA Sodium Chloride (Sodium Chloride 0.9% 10 Ml Flush Syringe) 10 ml IV PRN PRN PRN Reason: LINE FLUSH Review of Systems Constitutional: no fever, no chills Ears, nose, mouth and throat: no nasal congestion, no sore throat Cardiovascular: no chest pain, no palpitations Respiratory: no cough, no shortness of breath Gastrointestinal: nausea, vomiting, coffee ground emesis, no abdominal pain Genitourinary Male: no dysuria, no flank pain, no nocturia Musculoskeletal: no neck pain, no low back pain Integumentary: no rash, no pruritis Neurological: no headaches, no confusion Psychiatric: no anxiety, no depression Endocrine: no polyphagia, no polydipsia, no polyuria ( ) Exam - Constitutional Vitals: Temp Pulse Resp BP Pulse Ox 99.4 F 111 H 20 93/72 95 09/27/20 18:05 09/27/20 20:51 09/27/20 20:52 09/27/20 20:51 09/27/20 20:52 General appearance: Present: no acute distress, well-nourished - EENT Eyes: Present: PERRL, EOM intact. Absent: scleral icterus ENT: hearing intact, clear oral mucosa, dentition normal - Neck Neck: Present: supple, normal ROM - Respiratory Respiratory effort: normal Respiratory: bilateral: CTA - Cardiovascular Rhythm: regular Heart Sounds: Present: S1 & S2 - Extremities Extremities: Full ROM, abnormal ([place].BKA) Peripheral Pulses: within normal limits - Abdominal General gastrointestinal: Present: soft, non-tender, non-distended, normal bowel sounds. Absent: mass - Integumentary Integumentary: Present: clear, warm, dry, normal turgor. Absent: rash - Musculoskeletal Musculoskeletal: strength equal bilaterally - Psychiatric Psychiatric: appropriate mood/affect, intact judgment & insight, memory intact, cooperative - Neurologic Neurologic: CNII-XII intact, no focal deficits, moves all extremities HEART Score - HEART Score Troponin: Troponin T 0.212 ng/mL (0.00-0.029) H* 09/27/20 19:04 Results - Labs CBC & Chem 7: 09/27/20 19:04 09/28/20 01:10 Labs: Abnormal lab results 09/27/20 09/27/20 09/27/20 Range/Units 19:04 19:04 19:04 RBC 3.59 L (3.65-5.03) M/mm3 Hgb 10.4 L (11.8-15.2) gm/dl Hct 31.7 L (35.5-45.6) % RDW 16.8 H (13.2-15.2) % [place] % (Auto) 12.4 H (0.0-7.3) % [place] # (Auto) 0.9 H (0.0-0.8) K/mm3 PT 19.1 H (12.2-14.9) Sec. INR 1.54 H (0.87-1.13) Sodium 136 L (137-145) mmol/L Potassium 2.7 L* (3.6-5.0) mmol/L Chloride 92.1 L (98-107) mmol/L Creatinine 8.6 H (0.8-1.3) mg/dL Glucose 190 H (75-100) mg/dL Lactic Acid (0.7-2.0) mmol/L Troponin T 0.212 H* (0.00-0.029) ng/mL Albumin 3.6 L (3.9-5) g/dL LDL Cholesterol Direct 45 L (50-130) mg/dL 09/27/20 Range/Units 21:11 RBC (3.65-5.03) M/mm3 Hgb (11.8-15.2) gm/dl Hct (35.5-45.6) % RDW (13.2-15.2) % [place] % (Auto) (0.0-7.3) % [place] # (Auto) (0.0-0.8) K/mm3 PT (12.2-14.9) Sec. INR (0.87-1.13) Sodium (137-145) mmol/L Potassium (3.6-5.0) mmol/L Chloride (98-107) mmol/L Creatinine (0.8-1.3) mg/dL Glucose (75-100) mg/dL Lactic Acid 2.70 H* (0.7-2.0) mmol/L Troponin T (0.00-0.029) ng/mL Albumin (3.9-5) g/dL LDL Cholesterol Direct (50-130) mg/dL Assessment and Plan - Patient Problems (1) Nausea and vomiting Current Visit: Yes Status: Acute Plan to address problem: Patient has been placed on IV Zofran as needed. (2) Pneumonia Current Visit: No Status: Acute Plan to address problem: Patient placed on empiric IV antibiotics. (3) GI bleed Current Visit: Yes Status: Acute Plan to address problem: Patient has known history of GERD. We will place on proton pump inhibitor. We will make n.p.o. monitor hemoglobin and hematocrit. Consult placed to gastroenterology for evaluation. (4) Hypokalemia Current Visit: Yes Status: Acute Plan to address problem: Possibly secondary to the intractable nausea and vomiting. Potassium will be repleted and will monitor chemistry. (5) Pulmonary embolism Current Visit: No Status: Acute Plan to address problem: He has known history of DVT and pulmonary embolism. He has been on Eliquis at home. (6) Diabetes Current Visit: No Status: Chronic Plan to address problem: Patient placed on sliding scale and will monitor Accu-Cheks closely (7) End stage renal disease on dialysis Current Visit: Yes Status: Acute Plan to address problem: Consult placed to nephrology for evaluation. Patient gets dialysis on Tuesdays, and Saturdays. (8) DVT prophylaxis Current Visit: No Status: Acute Plan to address problem: Patient has been on anticoagulation with Eliquis however we will place on SCD in view of the GI bleed.
[2020-09-27] MEDS ORDERED: VANCOMYCIN PHARMACY TO DOSE IV SCH (23:00)
[2020-09-28] MEDS: POTASSIUM CHLORIDE 10 MEQ 10 MEQ/100 ML BAG IV SCH (00:04)
[2020-09-28] MEDS ORDERED: VANCOMYCIN 2,000 MG in SODIUM CHLORIDE 0.9% 500 ML 500 ML IV ONE (00:05)
[2020-09-28 01:53] LABS: C-Reactive Protein 2.3 mg/dL (0.00-1.30)
[2020-09-28] MEDS: PANTOPRAZOLE 80 MG in SODIUM CHLORIDE 0.9% 100 ML IV SCH ×2 (05:15→18:23)
[2020-09-28 07:14] LABS: Calcium 8.8 mg/dL (8.4-10.2)
[2020-09-28] MEDS: ONDANSETRON 4 MG/2 ML INJ IV PRN ×2 (08:40→20:14)
[2020-09-28] MEDS: INSULIN LISPRO 100 UNIT/ML SUB-Q SCH ×4 (08:40→21:52)
[2020-09-28] MEDS: CEFEPIME/NS 2 GM/100 ML 2 GM/100 ML BAG IV SCH (09:31)
[2020-09-28] MEDS ORDERED: SODIUM CHLORIDE 0.9% 100 ML IV PRN (10:00)
--- NOTE | 2020-09-28 10:14 | Consultation ---
History of Present Illness - Reason for Consult Consult date: 09/28/20 end stage renal disease - History of Present Illness This is a 50-year-old morbidly obese -[place]amese male with history of end- stage renal disease in the setting of hypertension and diabetes who initially was started on dialysis about a month ago, who is under the care of Dr. Dean Moore and currently dialyzes at [facility] in [place], presented to the emergency room department secondary to hypotension while at home. Patient was said to be hypotensive when seen by his nurse at home. SBP was reportedly around 80s. Patient also indicates that he has been having chronic nausea and vomiting over the past 2 months. e denies any fever or chills, no chest pain or shortness of breath, no abdominal pain, no hematuria or dysuria, no diarrhea, denies any melena or hematochezia. No headache or dizziness. Renal consult is requested for management of ESRD/HD. Patient has been compliant with his dialysis. Past History Past Medical History: diabetes, dialysis, ESRD, GERD, hypertension Past Surgical History: Other (Bilateral BKA) Social history: no significant social history, full code Family history: no significant family history Medications and Allergies Allergies Allergy/AdvReac Type Severity Reaction Status Date / Time No Known Allergies Allergy Verified 09/17/20 14:04 Home Medications Medication Instructions Recorded Confirmed Last Taken Type Ondansetron [Zofran ODT TAB] 4 mg PO Q8HR PRN #20 tab.rapdis 03/08/17 09/28/20 Unknown Rx Benzonatate [Tessalon Perles] 100 mg PO TID PRN 09/17/20 09/28/20 Unknown History Gabapentin 300 mg PO 3XW 09/17/20 09/28/20 Unknown History Midodrine [Proamatine] 5 mg PO TID 09/17/20 09/28/20 Unknown History Apixaban [Eliquis starter pack] 5 mg PO BID #60 tab.ds.pk 09/19/20 09/28/20 Unknown Rx AtorvaSTATin [Lipitor] 40 mg PO QHS #30 tablet 09/19/20 09/28/20 Unknown Rx Famotidine [Pepcid] 20 mg PO QHS #30 tablet 09/19/20 09/28/20 Unknown Rx Pantoprazole [Protonix TAB] 40 mg PO QDAY #30 tablet 09/19/20 09/28/20 Unknown Rx Metoclopramide [Reglan TAB] 10 mg PO TID 09/28/20 09/28/20 Unknown History Sodium Bicarbonate 650 mg PO BID 09/28/20 09/28/20 Unknown History Active Meds: Active Medications Acetaminophen (Acetaminophen 325 Mg Tab) 650 mg PO Q4H PRN PRN Reason: Pain MILD(1-3)/Fever >100.5/BUSH Dextrose (Dextrose 50% In Water (25gm) 50 Ml Syringe) 0 ml IV Q30MIN PRN; Protocol PRN Reason: Hypoglycemia Sodium Chloride (Nacl 0.9% 1000 Ml) 1,000 mls @ 75 mls/hr IV DIRECT ELYSIA Cefepime HCl (Cefepime/Ns 2 Gm/100 Ml) 2 gm in 100 mls @ 200 mls/hr IV Q24HR ELYSIA; Protocol Last Admin: 09/28/20 09:31 Dose: 200 mls/hr Documented by: Pantoprazole Sodium 80 mg/ (Sodium Chloride) 100 mls @ 10 mls/hr IV DIRECT ELYSIA Last Admin: 09/28/20 05:15 Dose: 8 mg/hr, 10 mls/hr Documented by: Sodium Chloride (Nacl 0.9%) 100 mls @ 999 mls/hr IV GISELL PRN PRN Reason: Hypotension Insulin Human Lispro (Insulin Lispro 100 Unit/Ml) 0 unit SUB-Q ACHS ELYSIA; Protocol Last Admin: 09/28/20 08:40 Dose: 2 unit Documented by: Magnesium Hydroxide (Magnesium Hydroxide (Mom) Oral Liqd Udc) 30 ml PO Q4H PRN PRN Reason: Constipation Morphine Sulfate (Morphine 2 Mg/1 Ml Inj) 2 mg IV Q4H PRN PRN Reason: Pain, Moderate (4-6) Morphine Sulfate (Morphine 4 Mg/1 Ml Inj) 4 mg IV Q4H PRN PRN Reason: Pain , Severe (7-10) Ondansetron HCl (Ondansetron 4 Mg/2 Ml Inj) 4 mg IV Q8H PRN PRN Reason: Nausea And Vomiting Last Admin: 09/28/20 08:40 Dose: 4 mg Documented by: Sodium Chloride (Sodium Chloride 0.9% 10 Ml Flush Syringe) 10 ml IV BID ELYSIA Last Admin: 09/28/20 09:32 Dose: 10 ml Documented by: Sodium Chloride (Sodium Chloride 0.9% 10 Ml Flush Syringe) 10 ml IV PRN PRN PRN Reason: LINE FLUSH Review of Systems All systems: negative Constitutional: anorexia, fatigue, weakness, poor appetite Exam - Vital Signs Vital signs: Vital Signs Temp Pulse Resp BP 99.4 F 115 H 14 85/57 09/27/20 18:05 09/27/20 18:05 09/27/20 18:05 09/27/20 18:05 - General Appearance General appearance: well-developed, well-nourished, appears stated age EENT: ATNC, PERRL, mucous membranes moist Neck: Present: neck supple Respiratory: Clear to Ascultation Heart: regular, S1S2 Gastrointestinal: Present: normoactive bowel sounds Integumentary: no rash Neurologic: no focal deficit, alert and oriented x3, strength 5/5, CN 3-12 intact Psychiatric: mood/affect appropriate, cooperative Results - Lab Results 09/28/20 14:30 09/28/20 05:41 Most recent lab results Calcium 8.8 mg/dL (8.4-10.2) 09/28/20 05:41 Magnesium 2.10 mg/dL (1.7-2.3) 09/27/20 19:04 Assessment and Plan - Patient Problems (1) End stage renal disease on dialysis Current Visit: Yes Status: Chronic Plan to address problem: arranged TTS inpatient hemodialysis schedule. Will limit UF to 1-2L as tolerated given poor po intake/low BP. (2) Nausea and vomiting Current Visit: Yes Status: Acute Plan to address problem: Symptomatic treatment with IV Zofran as needed, follow GI recommendations (3) Pneumonia Current Visit: No Status: Acute Plan to address problem: cont empiric IV antibiotics. (4) Pulmonary embolism Current Visit: No Status: Chronic Qualifiers: Pulmonary embolism type: single subsegmental (without acute cor pulmonale) Qualified Code(s): I26.93 - Single subsegmental pulmonary embolism without acute cor pulmonale Plan to address problem: He has known history of DVT and pulmonary embolism, cont eliquis (5) Insulin dependent diabetes mellitus Current Visit: No Status: Chronic Plan to address problem: diabetes management as per primary attending
--- NOTE | 2020-09-28 11:07 | Consultation ---
History of Present Illness Consult date: 09/28/20 Requesting physician: [facility] History of present illness: 50-year-old male with chronic dialysis was in the hospital recently for infection. Has chronic nausea and vomiting unable to keep his food down found to be hypotensive brought to the emergency room following for abnormal troponin. Patient has chronically abnormal troponin. Has normal LV function echocardiogram and no EKG changes. Patient denies any chest pain shortness of breath. Patient is being treated antibiotics and PPI. Patient is on oral anticoagulation for recent pulmonary embolism He denies any fever or chills, no chest pain or shortness of breath, no abdominal pain, no hematuria or dysuria, no diarrhea, denies any melena or hematochezia. No headache or dizziness. Patient has been compliant with his dialysis. Past History Past Medical History: diabetes, dialysis, ESRD, GERD, hypertension, pulmonary embolism, other Past Surgical History: Other (Bilateral BKA) Social history: no significant social history, full code Family history: no significant family history Medications and Allergies Allergies Allergy/AdvReac Type Severity Reaction Status Date / Time No Known Allergies Allergy Verified 09/17/20 14:04 Home Medications Medication Instructions Recorded Confirmed Last Taken Type Ondansetron [Zofran ODT TAB] 4 mg PO Q8HR PRN #20 tab.rapdis 03/08/17 09/28/20 Unknown Rx Benzonatate [Tessalon Perles] 100 mg PO TID PRN 09/17/20 09/28/20 Unknown His tory Gabapentin 300 mg PO 3XW 09/17/20 09/28/20 Unknown History Midodrine [Proamatine] 5 mg PO TID 09/17/20 09/28/20 Unknown History Apixaban [Eliquis starter pack] 5 mg PO BID #60 tab.ds.pk 09/19/20 09/28/20 Unknown Rx AtorvaSTATin [Lipitor] 40 mg PO QHS #30 tablet 09/19/20 09/28/20 Unknown Rx Famotidine [Pepcid] 20 mg PO QHS #30 tablet 09/19/20 09/28/20 Unknown Rx Pantoprazole [Protonix TAB] 40 mg PO QDAY #30 tablet 09/19/20 09/28/20 Unknown Rx Metoclopramide [Reglan TAB] 10 mg PO TID 09/28/20 09/28/20 Unknown History Sodium Bicarbonate 650 mg PO BID 09/28/20 09/28/20 Unknown History Active Meds: Active Medications Acetaminophen (Acetaminophen 325 Mg Tab) 650 mg PO Q4H PRN PRN Reason: Pain MILD(1-3)/Fever >100.5/BUSH Dextrose (Dextrose 50% In Water (25gm) 50 Ml Syringe) 0 ml IV Q30MIN PRN; Protocol PRN Reason: Hypoglycemia Sodium Chloride (Nacl 0.9% 1000 Ml) 1,000 mls @ 75 mls/hr IV DIRECT ELYSIA Cefepime HCl (Cefepime/Ns 2 Gm/100 Ml) 2 gm in 100 mls @ 200 mls/hr IV Q24HR ELYSIA; Protocol Last Admin: 09/28/20 09:31 Dose: 200 mls/hr Documented by: Pantoprazole Sodium 80 mg/ (Sodium Chloride) 100 mls @ 10 mls/hr IV DIRECT ELYSIA Last Admin: 09/28/20 05:15 Dose: 8 mg/hr, 10 mls/hr Documented by: Sodium Chloride (Nacl 0.9%) 100 mls @ 999 mls/hr IV GISELL PRN PRN Reason: Hypotension Insulin Human Lispro (Insulin Lispro 100 Unit/Ml) 0 unit SUB-Q ACHS ELYSIA; Protocol Last Admin: 09/28/20 08:40 Dose: 2 unit Documented by: Magnesium Hydroxide (Magnesium Hydroxide (Mom) Oral Liqd Udc) 30 ml PO Q4H PRN PRN Reason: Constipation Morphine Sulfate (Morphine 2 Mg/1 Ml Inj) 2 mg IV Q4H PRN PRN Reason: Pain, Moderate (4-6) Morphine Sulfate (Morphine 4 Mg/1 Ml Inj) 4 mg IV Q4H PRN PRN Reason: Pain , Severe (7-10) Ondansetron HCl (Ondansetron 4 Mg/2 Ml Inj) 4 mg IV Q8H PRN PRN Reason: Nausea And Vomiting Last Admin: 09/28/20 08:40 Dose: 4 mg Documented by: Sodium Chloride (Sodium Chloride 0.9% 10 Ml Flush Syringe) 10 ml IV BID ELYSIA Last Admin: 09/28/20 09:32 Dose: 10 ml Documented by: Sodium Chloride (Sodium Chloride 0.9% 10 Ml Flush Syringe) 10 ml IV PRN PRN PRN Reason: LINE FLUSH Review of Systems All systems: negative (As per the HPI) Physical Examination Vital Signs Temp Pulse Resp BP 99.4 F 115 H 14 85/57 09/27/20 18:05 09/27/20 18:05 09/27/20 18:05 09/27/20 18:05 General appearance: no acute distress, well-nourished HEENT: Positive: PERRL, Mucus Membranes Moist Neck: Positive: neck supple, trachea midline Cardiac: Positive: Reg Rate and Rhythm, S1/S2. Negative: Audible Murmur Lungs: Positive: clear to auscultation, Normal Breath Sounds Neuro: Positive: Grossly Intact Abdomen: Positive: Soft, Active Bowel Sounds. Negative: Tender, Distended Male genitourinary: Positive: normal Skin: Positive: Clear Incision: Cardiac Cath Site Musculoskeletal: No Pain, Normal Range of Motion Extremities: Present: normal. Absent: edema Results 09/27/20 19:04 09/28/20 05:41 Cardiac Enzymes 09/27/20 09/28/20 Range/Units 19:04 01:10 AST 15 (5-40) units/L Lactate Dehydrogenase 223 H (91-180) units/L Coagulation 09/27/20 Range/Units 19:04 PT 19.1 H (12.2-14.9) Sec. INR 1.54 H (0.87-1.13) APTT 34.8 (24.2-36.6) Sec. Lipids 09/27/20 Range/Units 19:04 Triglycerides 128 (2-149) mg/dL Cholesterol 113 (50-199) mg/dL HDL Cholesterol 54 (40-59) mg/dL Cholesterol/HDL Ratio 2.09 % CBC 09/27/20 Range/Units 19:04 WBC 7.5 (4.5-11.0) K/mm3 RBC 3.59 L (3.65-5.03) M/mm3 Hgb 10.4 L (11.8-15.2) gm/dl Hct 31.7 L (35.5-45.6) % Plt Count 260 (140-440) K/mm3 Lymph # (Auto) 1.4 (1.2-5.4) K/mm3 [place] # (Auto) 0.9 H (0.0-0.8) K/mm3 Eos # (Auto) 0.1 (0.0-0.4) K/mm3 Baso # (Auto) 0.1 (0.0-0.1) K/mm3 Comprehensive Metabolic Panel 09/27/20 09/28/20 09/28/20 Range/Units 19:04 01:10 05:41 Sodium 136 L 136 L (137-145) mmol/L Potassium 2.7 L* 3.6 D (3.6-5.0) mmol/L Chloride 92.1 L 95.6 L (98-107) mmol/L Carbon Dioxide 29 20 L D (22-30) mmol/L BUN 16 17 (9-20) mg/dL Creatinine 8.6 H 10.0 H (0.8-1.3) mg/dL Glucose 190 H 168 H 154 H (75-100) mg/dL Calcium 9.3 8.8 (8.4-10.2) mg/dL Direct Bilirubin < 0.2 (0-0.2) mg/dL Indirect Bilirubin 0.0 mg/dL AST 15 (5-40) units/L ALT 9 (7-56) units/L Alkaline Phosphatase 94 (35-129) units/L Total Protein 7.8 (6.3-8.2) g/dL Albumin 3.6 L (3.9-5) g/dL - Imaging and Cardiology Echo: report reviewed (Normal LV function without significant regurgitations) EKG interpretations - Telemetry EKG Rhythm: Sinus Rhythm (Normal sinus rhythm nonspecific ST-T) Assessment and Plan 50-year-old male with obesity end-stage renal disease on hemodialysis been having chronic nausea vomiting was on that the last admission did not get better with PPI and Protonix patient came back because of hypotension. Is on oral anticoagulation Eliquis for recent pulmonary embolism with chronic elevated troponin suggested non-STEMI type II. Patient be treated medically will hold o ff any ischemic evaluation at this time with a recent normal LV function and no change in EKG no symptomology. - Patient Problems (1) Non-STEMI (non-ST elevated myocardial infarction) Current Visit: Yes Status: Chronic (2) End stage renal disease on dialysis Current Visit: Yes Status: Chronic (3) Hypokalemia Current Visit: Yes Status: Acute (4) Nausea and vomiting Current Visit: Yes Status: Acute (5) Pulmonary embolism Current Visit: No Status: Chronic Qualifiers: Pulmonary embolism type: single subsegmental (without acute cor pulmonale) Qualified Code(s): I26.93 - Single subsegmental pulmonary embolism without acute cor pulmonale (6) GERD (gastroesophageal reflux disease) Current Visit: No Status: Chronic (7) Hypertension Current Visit: No Status: Chronic Qualifiers: Hypertension type: primary hypertension Qualified Code(s): I10 - Essential (primary) hypertension (8) Insulin dependent diabetes mellitus Current Visit: No Status: Chronic
[2020-09-28] MEDS: SODIUM CHLORIDE 0.9% 1000 ML 1,000 ML IV SCH (13:55)
[2020-09-28 14:51] LABS: Basophils % (Auto) 0.2 % (0.0-1.8); Eosinophils # (Auto) 0.3 K/mm3 (0.0-0.4); Eosinophils % (Auto) 3.5 % (0.0-4.3); Hematocrit 30.8 % (35.5-45.6); Hemoglobin 10.2 gm/dl (11.8-15.2); Lymphocytes # (Auto) 0.5 K/mm3 (1.2-5.4); Lymphocytes % (Auto) 5.3 % (13.4-35.0); Mean Corpuscular HGB Conc 33 % (32-34); Mean Corpuscular Volume 87 fl (84-94); Monocytes # (Auto) 0.8 K/mm3 (0.0-0.8); Monocytes % (Auto) 8.4 % (0.0-7.3); Platelet Count 251 K/mm3 (140-440); Red Blood Count 3.54 M/mm3 (3.65-5.03); Red Cell Distribution Width 16.9 % (13.2-15.2)
[2020-09-28 15:00] LABS: INR 2.23 (0.87-1.13)
[2020-09-28] MEDS ORDERED: SODIUM CHLORIDE 0.9% 500 ML 500 ML IV ONE (20:52)
[2020-09-28] MEDS ORDERED: PROMETHAZINE 25 MG RECT SUPP PR ONE (23:25)
[2020-09-29] MEDS: ONDANSETRON 4 MG/2 ML INJ IV PRN (03:52)
[2020-09-29] MEDS: SODIUM CHLORIDE 0.9% 1000 ML 1,000 ML IV SCH (03:53)
[2020-09-29] MEDS: PANTOPRAZOLE 80 MG in SODIUM CHLORIDE 0.9% 100 ML IV SCH (05:28)
[2020-09-29] MEDS: INSULIN LISPRO 100 UNIT/ML SUB-Q SCH ×2 (07:55→12:12)
--- NOTE | 2020-09-29 07:59 | Progress Note ---
Assessment and Plan - Patient Problems (1) Pneumonia Current Visit: No Status: Acute Plan to address problem: Patient placed on empiric IV antibiotics. (2) Nausea and vomiting Current Visit: Yes Status: Acute Plan to address problem: Patient has been placed on IV Zofran as needed. (3) GI bleed Current Visit: Yes Status: Acute Plan to address problem: Patient has known history of GERD. We will place on proton pump inhibitor. We will make n.p.o. monitor hemoglobin and hematocrit. Consult placed to gastroenterology for evaluation. (4) Hypokalemia Current Visit: Yes Status: Acute Plan to address problem: Possibly secondary to the intractable nausea and vomiting. Potassium will be repleted and will monitor chemistry. (5) Pulmonary embolism Current Visit: No Status: Acute Plan to address problem: He has known history of DVT and pulmonary embolism. He has been on Eliquis at home. (6) Diabetes Current Visit: No Status: Chronic Plan to address problem: Patient placed on sliding scale and will monitor Accu-Cheks closely (7) End stage renal disease on dialysis Current Visit: Yes Status: Acute Plan to address problem: Consult placed to nephrology for evaluation. Patient gets dialysis on Tuesdays, and Saturdays. (8) DVT prophylaxis Current Visit: No Status: Acute Plan to address problem: Patient has been on anticoagulation with Eliquis however we will place on SCD in view of the GI bleed. Subjective Date of service: 09/28/20 Principal diagnosis: Hypotension, right lower lobe pneumonia Interval history: 50-year-old male with known history of hypertension, diabetes mellitus, coronary artery disease, bilateral BKA and history of DVT/PE currently on Eliquis, end- stage renal disease on dialysis on Tuesdays, and Saturdays was brought into the emergency room today by EMS for hypotension while at home. Patient was said to be hypotensive when seen by his nurse at home. Systolic blood pressure was said to be in the 80s and diastolic in the 50s. Patient also indicates that he has been having chronic nausea and vomiting over the past 2 months. Vomitus has been coffee-ground at times. He denies use of any nonsteroidal anti-inflammatory medication. He denies any fever or chills, no chest pain or shortness of breath, no abdominal pain, no hematuria or dysuria, no diarrhea, denies any melena or hematochezia. No headache or dizziness. Patient has been compliant with his dialysis. Work-up in the emergency room today reveals hypokalemia of 2.7 Chest x-ray shows increased density in the right lower lung, no pneumothorax. CT of the abdomen and pelvis reveals no bowel obstruction, bladder wall thickening, mild inflammation surrounding the kidneys may be chronic. There is also increased opacity/infiltrates within the lower lung. Patient is being admitted with nausea and vomiting, pneumonia, GI bleed and hypokalemia. 09/28/2020 Nausea and vomiting improved Blood pressure levels improved-to 92/38 Admission blood pressure was 85/57 Objective - Constitutional Vitals: Vital Signs - 12hr 09/28/20 09/28/20 09/28/20 20:20 22:33 22:48 Temperature Pulse Rate 110 H 109 H Pulse Rate [ 107 H From Monitor] Pulse Rate [ 107 H Radial] Respiratory 19 20 Rate Blood Pressure 102/67 O2 Sat by Pulse 95 100 Oximetry 09/28/20 09/29/20 09/29/20 23:44 00:39 03:25 Temperature 98.8 F 98.1 F Pulse Rate 110 H 108 H 110 H Pulse Rate [ From Monitor] Pulse Rate [ Radial] Respiratory 20 20 20 Rate Blood Pressure 86/66 104/65 103/60 O2 Sat by Pulse 98 97 98 Oximetry 09/29/20 04:00 Temperature Pulse Rate 109 H Pulse Rate [ From Monitor] Pulse Rate [ Radial] Respiratory Rate Blood Pressure O2 Sat by Pulse Oximetry General appearance: Present: no acute distress, well-nourished - EENT Eyes: PERRL, EOM intact ENT: hearing intact, clear oral mucosa Ears: bilateral: normal - Neck Neck: supple, normal ROM - Respiratory Respiratory effort: normal Respiratory: bilateral: CTA - Breasts Breasts: normal - Cardiovascular Heart rate: 78 Rhythm: regular Heart Sounds: Present: S1 & S2. Absent: gallop, rub Extremities: pulses intact, No edema, normal color, Full ROM - Gastrointestinal General gastrointestinal: Present: soft, non-tender, non-distended, normal bowel sounds - Genitourinary Male genitourinary: normal - Integumentary Integumentary: clear, warm, dry - Musculoskeletal Musculoskeletal: 1, strength equal bilaterally - Neurologic Neurologic: moves all extremities - Psychiatric Psychiatric: memory intact, appropriate mood/affect, intact judgment & insight - Additional findings Additional findings: Chest x-ray Increased density in the right lower leg no pneumothorax CT of the abdomen No bowel obstruction No focal inflammatory change Bladder wall thickening No definite renal ureteral stone mild inflammation surrounding the kidney may be chronic - Allied health notes Allied health notes reviewed: nursing, case management - Labs CBC & Chem 7: 09/28/20 14:30 09/28/20 05:41 Labs: Abnormal lab results 09/28/20 09/28/20 09/28/20 Range/Units 11:21 14:30 14:30 RBC 3.54 L (3.65-5.03) M/mm3 Hgb 10.2 L (11.8-15.2) gm/dl Hct 30.8 L (35.5-45.6) % RDW 16.9 H (13.2-15.2) % Lymph % (Auto) 5.3 L (13.4-35.0) % [place] % (Auto) 8.4 H (0.0-7.3) % Lymph # (Auto) 0.5 L (1.2-5.4) K/mm3 Seg Neutrophils % 82.6 H (40.0-70.0) % Seg Neutrophils # 7.8 H (1.8-7.7) K/mm3 PT 25.2 H (12.2-14.9) Sec. INR 2.23 H (0.87-1.13) POC Glucose 140 H (70-105) mg/dL 09/28/20 09/29/20 Range/Units 21:29 07:47 RBC (3.65-5.03) M/mm3 Hgb (11.8-15.2) gm/dl Hct (35.5-45.6) % RDW (13.2-15.2) % Lymph % (Auto) (13.4-35.0) % [place] % (Auto) (0.0-7.3) % Lymph # (Auto) (1.2-5.4) K/mm3 Seg Neutrophils % (40.0-70.0) % Seg Neutrophils # (1.8-7.7) K/mm3 PT (12.2-14.9) Sec. INR (0.87-1.13) POC Glucose 142 H 134 H (70-105) mg/dL HEART Score - HEART Score Troponin: Troponin T 0.212 ng/mL (0.00-0.029) H* 09/27/20 19:04
--- NOTE | 2020-09-29 08:16 | Progress Note ---
Assessment and Plan - Patient Problems (1) End stage renal disease on dialysis Current Visit: Yes Status: Chronic Plan to address problem: Cont HD on TTS schedule. (2) Nausea and vomiting Current Visit: Yes Status: Acute Qualifiers: Qualified Code(s): R11.2 - Nausea with vomiting, unspecified Plan to address problem: Symptomatic treatment with IV Zofran as needed, follow GI recommendations (3) Pneumonia Current Visit: Yes Status: Acute Qualifiers: Qualified Code(s): J69.0 - Pneumonitis due to inhalation of food and vomit Plan to address problem: cont empiric IV antibiotics. (4) Pulmonary embolism Current Visit: No Status: Chronic Qualifiers: Qualified Code(s): I26.93 - Single subsegmental pulmonary embolism without acute cor pulmonale Plan to address problem: He has known history of DVT and pulmonary embolism, cont eliquis (5) Insulin dependent diabetes mellitus Current Visit: Yes Status: Chronic Plan to address problem: diabetes management as per primary attending Subjective Date of service: 09/29/20 Principal diagnosis: ESRD Interval history: Pt awake, alert, in no acute distress Objective - Vital Signs Vital signs: Vital Signs - 12hr 09/28/20 09/28/20 09/28/20 20:20 22:33 22:48 Temperature Pulse Rate 110 H 109 H Pulse Rate [ 107 H From Monitor] Pulse Rate [ 107 H Radial] Respiratory 19 20 Rate Blood Pressure 102/67 O2 Sat by Pulse 95 100 Oximetry 09/28/20 09/29/20 09/29/20 23:44 00:39 03:25 Temperature 98.8 F 98.1 F Pulse Rate 110 H 108 H 110 H Pulse Rate [ From Monitor] Pulse Rate [ Radial] Respiratory 20 20 20 Rate Blood Pressure 86/66 104/65 103/60 O2 Sat by Pulse 98 97 98 Oximetry 09/29/20 04:00 Temperature Pulse Rate 109 H Pulse Rate [ From Monitor] Pulse Rate [ Radial] Respiratory Rate Blood Pressure O2 Sat by Pulse Oximetry - General Appearance General appearance: well-developed, well-nourished, appears stated age EENT: ATNC, PERRL, mucous membranes moist Neck: no JVD Respiratory: Present: Clear to Ascultation Cardiology: regular, S1S2 Gastrointestinal: normoactive bowel sounds Integumentary: no rash Neurologic: no focal deficit, alert and oriented x3, strength 5/5, CN 3-12 intact Psychiatric: mood/affect appropriate, cooperative - Lab 09/28/20 14:30 09/28/20 05:41 Most recent lab results Calcium 8.8 mg/dL (8.4-10.2) 09/28/20 05:41 Magnesium 2.10 mg/dL (1.7-2.3) 09/27/20 19:04 Medications & Allergies - Medications Allergies/Adverse Reactions: Allergies No Known Allergies Allergy (Verified 09/17/20 14:04) Home Medications: Home Medications Medication Instructions Recorded Confirmed Last Taken Type Ondansetron [Zofran ODT TAB] 4 mg PO Q8HR PRN #20 tab.rapdis 03/08/17 09/28/20 Unknown Rx Benzonatate [Tessalon Perles] 100 mg PO TID PRN 09/17/20 09/28/20 Unknown History Gabapentin 300 mg PO 3XW 09/17/20 09/28/20 Unknown History Midodrine [Proamatine] 5 mg PO TID 09/17/20 09/28/20 Unknown History Apixaban [Eliquis starter pack] 5 mg PO BID #60 tab.ds.pk 09/19/20 09/28/20 Unknown Rx AtorvaSTATin [Lipitor] 40 mg PO QHS #30 tablet 09/19/20 09/28/20 Unknown Rx Famotidine [Pepcid] 20 mg PO QHS #30 tablet 09/19/20 09/28/20 Unknown Rx Pantoprazole [Protonix TAB] 40 mg PO QDAY #30 tablet 09/19/20 09/28/20 Unknown Rx Metoclopramide [Reglan TAB] 10 mg PO TID 09/28/20 09/28/20 Unknown History Sodium Bicarbonate 650 mg PO BID 09/28/20 09/28/20 Unknown History Active Medications: Generic Name Dose Route Start Last Admin Trade Name Freq PRN Reason Stop Dose Admin Acetaminophen 650 mg 09/27/20 22:24 Acetaminophen 325 Mg Tab PO Q4H PRN Pain MILD(1-3)/Fever >100.5/BUSH Dextrose 0 ml 09/27/20 22:24 Dextrose 50% In Water (25gm) 50 Ml Syringe IV Q30MIN PRN Hypoglycemia Protocol Sodium Chloride 1,000 mls @ 75 mls/hr 09/27/20 22:30 09/29/20 03:53 Nacl 0.9% 1000 Ml IV 75 mls/hr DIRECT ELYSIA Administration Cefepime HCl 2 gm in 100 mls @ 200 mls/hr 09/28/20 10:00 09/28/20 09:31 Cefepime/Ns 2 Gm/100 Ml IV 200 mls/hr Q24HR ELYSIA Administration Protocol Pantoprazole Sodium 80 mg/ 100 mls @ 10 mls/hr 09/27/20 23:00 09/29/20 05:28 Sodium Chloride IV 8 mg/hr DIRECT ELYSIA 10 mls/hr Administration 8 MG/HR Sodium Chloride 100 mls @ 999 mls/hr 09/28/20 10:00 Nacl 0.9% IV GISELL PRN Hypotension Insulin Human Lispro 0 unit 09/28/20 07:30 09/29/20 07:55 Insulin Lispro 100 Unit/Ml SUB-Q Not Given ACHS ELYSIA Protocol Magnesium Hydroxide 30 ml 09/27/20 22:24 Magnesium Hydroxide (Mom) Oral Liqd Udc PO Q4H PRN Constipation Morphine Sulfate 2 mg 09/27/20 22:24 Morphine 2 Mg/1 Ml Inj IV Q4H PRN Pain, Moderate (4-6) Morphine Sulfate 4 mg 09/27/20 22:24 Morphine 4 Mg/1 Ml Inj IV Q4H PRN Pain , Severe (7-10) Ondansetron HCl 4 mg 09/27/20 22:24 09/29/20 03:52 Ondansetron 4 Mg/2 Ml Inj IV 4 mg Q8H PRN Administration Nausea And Vomiting Sodium Chloride 10 ml 09/28/20 10:00 09/28/20 21:54 Sodium Chloride 0.9% 10 Ml Flush Syringe IV 10 ml BID ELYSIA Administration Sodium Chloride 10 ml 09/27/20 22:24 Sodium Chloride 0.9% 10 Ml Flush Syringe IV PRN PRN LINE FLUSH
--- NOTE | 2020-09-29 08:28 | Consultation ---
DATE OF CONSULTATION: 09/28/2020 REFERRING PHYSICIAN: Dr. Florence Delgado. INDICATION: Coffee emesis. HISTORY OF PRESENT ILLNESS: The patient is a 50-year-old black male with history of end-stage renal disease on dialysis, hypertension, diabetes, coronary artery disease as well as DVT and PE, on Eliquis. The patient had a previous EGD within the last few weeks showing grade III esophagitis performed by ____ earlier this month. The patient reports some vomiting and nausea with reported coffee emesis. Denies any bright red emesis. Denies any melena. Denies any other signs of GI bleeding. The patient had been admitted and GI consulted to aid in management. No other specific problems or complaints. PAST MEDICAL HISTORY: 1. End-stage renal disease, on dialysis. 2. Diabetes. 3. GERD. 4. Hypertension. 5. Status post bilateral BKA. MEDICATIONS: Reviewed and updated in the chart. ALLERGIES: No known drug allergies. SOCIAL HISTORY: Positive smoker. Denies alcohol. FAMILY HISTORY: Negative for colon cancer. REVIEW OF SYSTEMS: GENERAL: Reports some weakness. HEENT: No visual complaints or tinnitus. PULMONARY: Reports some mild shortness of breath, ____ chest pain. GASTROINTESTINAL: Reports coffee emesis. All points of 10-point review of systems otherwise negative. PHYSICAL EXAMINATION: VITAL SIGNS: Temperature of 98.4, pulse 99, respirations 18, blood pressure 111/70. GENERAL: Fairly nourished black male, in no acute distress. HEENT: Pupils equal, round and reactive. PULMONARY: Rhonchi. CARDIOVASCULAR: Regular rate and rhythm. Normal S1, S2. ABDOMEN: Positive bowel sounds, soft. EXTREMITIES: Noted bilateral BKA. SKIN: No obvious rashes. LABORATORY DATA: Pertinent for white count of 9.4, hemoglobin and hematocrit of 10.2 and 38.8, platelet count of 251. Chem-7: Sodium of 136, potassium 3.6, chloride of 95.7, CO2 of 20, BUN and creatinine of 17 and 10. ASSESSMENT: A 50-year-old male with multiple medical problems as noted above with a recent EGD 2-3 weeks ago showing grade III esophagitis, now after bouts of nausea, vomiting, noted some coffee-ground emesis. The patient's hemoglobin and hematocrit have remained stable. No signs of active bleeding at this time. Management as noted below. PLAN: 1. PPI IV b.i.d. 2. Avoid NSAIDs and aspirin. 3. Diet as tolerated. 4. No plans for repeat EGD if no other signs of active bleeding. 5. We will follow for now. TID: [id number] RECEIPT: [id number] ROOPA/MARCELA/BONI
[2020-09-29] MEDS: CEFEPIME/NS 2 GM/100 ML 2 GM/100 ML BAG IV SCH (09:38)
[2020-09-29] MEDS ORDERED: BENZONATATE 100 MG CAP PO PRN (10:18)
--- NOTE | 2020-09-29 10:21 | Progress Note ---
Assessment and Plan 50-year-old male with obesity end-stage renal disease on hemodialysis been having chronic nausea vomiting was on that the last admission did not get better with PPI and Protonix patient came back because of hypotension. Is on oral anticoagulation Eliquis for recent pulmonary embolism with chronic elevated troponin suggested non-STEMI type II. Patient be treated medically will hold off any ischemic evaluation at this time with a recent normal LV function and no change in EKG no symptomology. Patient blood pressure has improved continue midodrine on and home medications patient if he is feeling better may be discharged and continue home medications patient has gastroparesis - Patient Problems (1) Non-STEMI (non-ST elevated myocardial infarction) Current Visit: Yes Status: Chronic (2) End stage renal disease on dialysis Current Visit: Yes Status: Chronic (3) Hypokalemia Current Visit: Yes Status: Acute (4) Nausea and vomiting Current Visit: Yes Status: Acute Qualifiers: Vomiting Intractability: intractable (5) Pulmonary embolism Current Visit: No Status: Chronic Qualifiers: Pulmonary embolism type: single subsegmental (without acute cor pulmonale) Qualified Code(s): I26.93 - Single subsegmental pulmonary embolism without acute cor pulmonale (6) GERD (gastroesophageal reflux disease) Current Visit: No Status: Chronic (7) Hypertension Current Visit: No Status: Chronic Qualifiers: Hypertension type: primary hypertension Qualified Code(s): I10 - Essential (primary) hypertension (8) Insulin dependent diabetes mellitus Current Visit: Yes Status: Chronic Subjective Date of service: 09/29/20 Principal diagnosis: Hypotension, right lower lobe pneumonia Interval history: no vomiting but spitting up, feeling better Objective Vital Signs Temp Pulse Pulse Pulse Resp BP Pulse Ox 09/29/20 07:41 98.4 F 108 H 20 116/75 98 09/29/20 04:00 109 H 09/29/20 03:25 98.1 F 110 H 20 103/60 98 09/29/20 00:39 108 H 20 104/65 97 09/28/20 23:44 98.8 F 110 H 20 86/66 98 09/28/20 22:48 109 H 20 102/67 100 09/28/20 22:33 107 H 107 H 19 95 09/28/20 20:20 110 H 09/28/20 19:43 110 H 87/41 99 09/28/20 19:05 98.4 F 107 H 19 83/47 95 09/28/20 18:30 98.0 F 108 H 216 H 95/44 09/28/20 18:00 112 H 92/38 09/28/20 17:45 110 H 86/40 09/28/20 17:30 113 H 103/76 09/28/20 17:15 110 H 82/36 09/28/20 17:00 114 H 98/56 09/28/20 16:45 113 H 87/32 09/28/20 16:30 113 H 82/50 09/28/20 16:15 107 H 106/36 09/28/20 16:00 110 H 85/45 09/28/20 15:45 111 H 85/42 09/28/20 15:30 113 H 80/40 09/28/20 15:15 113 H 95/52 09/28/20 15:00 116 H 113/55 09/28/20 14:45 115 H 91/58 09/28/20 14:30 110 H 103/51 09/28/20 14:15 97.9 F 110 H 16 103/51 09/28/20 11:12 98.4 F 116 H 19 111/70 96 09/28/20 11:00 99 H 09/28/20 10:37 78 78 16 98 - Physical Examination HEENT: Positive: PERRL, Mucus Membranes Moist Neck: Positive: neck supple Cardiac: Positive: Reg Rate and Rhythm Lungs: Positive: clear to auscultation Neuro: Positive: Grossly Intact Abdomen: Positive: Soft, Active Bowel Sounds. Negative: Tender, Distended Skin: Positive: Clear Incision: Cardiac Cath Site Musculoskeletal: No Pain, Normal Range of Motion Extremities: Present: normal. Absent: edema - Labs and Meds Coagulation 09/28/20 Range/Units 14:30 PT 25.2 H (12.2-14.9) Sec. INR 2.23 H (0.87-1.13) CBC 09/28/20 Range/Units 14:30 WBC 9.4 (4.5-11.0) K/mm3 RBC 3.54 L (3.65-5.03) M/mm3 Hgb 10.2 L (11.8-15.2) gm/dl Hct 30.8 L (35.5-45.6) % Plt Count 251 (140-440) K/mm3 Lymph # (Auto) 0.5 L (1.2-5.4) K/mm3 Payne # (Auto) 0.8 (0.0-0.8) K/mm3 Eos # (Auto) 0.3 (0.0-0.4) K/mm3 Baso # (Auto) 0.0 (0.0-0.1) K/mm3 - Imaging and Cardiology Echo: report reviewed (Normal LV function without significant regurgitations) - Telemetry EKG Rhythm: Sinus Rhythm
[2020-09-29] MEDS ORDERED: APIXABAN 5 MG PO SCH (10:30)
[2020-09-29] MEDS ORDERED: APIXABAN 5 MG TAB PO SCH (11:00)
--- NOTE | 2020-09-29 11:35 | Discharge Summary ---
Providers - Providers Date of Admission: 09/27/20 22:05 Date of discharge: 09/29/20 Attending physician: SOUTH NIEVES 09/27/20 22:03 Consult to Physician [CONS] Routine Comment: Dr. Nugent spoke with Dr. Vera @ 2111 Consulting Provider: OLINDA VERA Physician Instructions: Reason For Exam: elevated troponin Consult to Physician [CONS] Routine Comment: Dr. Nugent spoke with Dr. Covington @ 2047 Consulting Provider: JOHN COVINGTON Physician Instructions: Reason For Exam: Hemodialysis 09/27/20 22:04 Consult to Physician [CONS] Routine Comment: Dr. Nugent spoke with Dr. Porter @ 2153 Consulting Provider: SHUN PORTER Physician Instructions: Reason For Exam: hematemesis, GI bleed, on eliquis 09/27/20 22:24 Consult to Dietitian/Nutrition [CONS] Routine Physician Instructions: Reason For Exam: Reason for Consult: Diet education 09/28/20 11:09 Midline [Consult to PICC Line RN] [CONS] Urgent Reason For Exam: Difficult stick Type Line:: Midline Primary care physician: GEOSPATIAL ENGINEER Hospitalization Condition: Serious Hospital course: Subjective Date of service: 09/29/20 Principal diagnosis: Hypotension, right lower lobe pneumonia Interval history: 50-year-old male with known history of hypertension, diabetes mellitus, coronary artery disease, bilateral BKA and history of DVT/PE currently on Eliquis, end- stage renal disease on dialysis on Tuesdays, and Saturdays was brought into the emergency room today by EMS for hypotension while at home. Patient was said to be hypotensive when seen by his nurse at home. Systolic blood pressure was said to be in the 80s and diastolic in the 50s. Patient also indicates that he has been having chronic nausea and vomiting over the past 2 months. Vomitus has been coffee-ground at times. He denies use of any nonsteroidal anti-inflammatory medication. He denies any fever or chills, no chest pain or shortness of breath, no abdominal pain, no hematuria or dysuria, no diarrhea, denies any melena or hematochezia. No headache or dizziness. Patient has been compliant with his dialysis. Work-up in the emergency room today reveals hypokalemia of 2.7 Chest x-ray shows increased density in the right lower lung, no pneumothorax. CT of the abdomen and pelvis reveals no bowel obstruction, bladder wall thickening, mild inflammation surrounding the kidneys may be chronic. There is also increased opacity/infiltrates within the lower lung. Patient is being admitted with nausea and vomiting, pneumonia, GI bleed and hypokalemia. 09/28/2020 Nausea and vomiting improved Blood pressure levels improved-to 92/38 Admission blood pressure was 85/57 09/29/2020 'Blood pressure much improved nausea still there but wants to go home on Zofran (1) Pneumonia Current Visit: No Status: Acute Plan to address problem: Will discharge on oral Levaquin 500 once a day for 7 days (2) Nausea and vomiting Current Visit: Yes Status: Acute Plan to address problem: Oral Zofran and Reglan at home Risk-prescription to be given (3) GI bleed Current Visit: Yes Status: Acute Plan to address problem: No GI bleed Continue Protonix orally twice a day (4) Hypokalemia Current Visit: Yes Status: Acute Plan to address problem: Possibly secondary to the intractable nausea and vomiting. Potassium will be repleted and will monitor chemistry. (5) Pulmonary embolism Current Visit: No Status: Acute Plan to address problem: He has known history of DVT and pulmonary embolism. He has been on Eliquis at home. We will discharge on Eliquis (6) Diabetes Current Visit: No Status: Chronic Plan to address problem: Prescribed Novolin 70/30 twice a day (7) End stage renal disease on dialysis Current Visit: Yes Status: Acute Plan to address problem: Consult placed to nephrology for evaluation. Patient gets dialysis on Tuesdays, and Saturdays. (8) DVT prophylaxis Current Visit: No Status: Acute Plan to address problem: Patient has been on anticoagulation with Eliquis however we will place on SCD in view of the GI bleed. Disposition: DC-01 TO HOME OR SELFCARE Final Discharge Diagnosis (Prints w/discharge instructions): Pneumonia. Hypokalemia. GI bleed-resolved. ER ESRD on hemodialysis. History of pulmonary embolism. Diabetes. Hypertension Time spent for discharge: 35 minutes - Discharge Diagnoses (1) GI bleed Status: Acute Qualifiers: GI bleed type/associated pathology: unspecified gastrointestinal hemorrhage type Qualified Code(s): K92.2 - Gastrointestinal hemorrhage, unspecified (2) Hypokalemia Status: Acute (3) Hypotension Status: Acute Qualifiers: Hypotension type: unspecified hypotension type Qualified Code(s): I95.9 - Hypotension, unspecified (4) Nausea and vomiting Status: Acute Qualifiers: Vomiting Intractability: intractable (5) End stage renal disease on dialysis Status: Chronic (6) Non-STEMI (non-ST elevated myocardial infarction) Status: Chronic Core Measure Documentation - Palliative Care Palliative Care/ Comfort Measures: Not Applicable - Core Measures Any of the following diagnoses?: none Exam - Constitutional Vitals: Temp Pulse Resp BP Pulse Ox 98.4 F 108 H 20 116/75 98 09/29/20 07:41 09/29/20 07:41 09/29/20 07:41 09/29/20 07:41 09/29/20 07:41 General appearance: Present: no acute distress, well-nourished - EENT Eyes: Present: PERRL ENT: hearing intact, clear oral mucosa - Neck Neck: Present: supple, normal ROM - Respiratory Respiratory effort: normal Respiratory: bilateral: CTA - Cardiovascular Heart rate: 78 Rhythm: regular Heart Sounds: Present: S1 & S2. Absent: rub, click - Extremities Extremities: pulses symmetrical, No edema Peripheral Pulses: within normal limits - Abdominal General gastrointestinal: Present: soft, non-tender, non-distended, normal bowel sounds Male genitourinary: Present: normal - Rectal Rectal Exam: deferred - Integumentary Integumentary: Present: clear, warm, dry - Musculoskeletal Musculoskeletal: gait normal, strength equal bilaterally - Psychiatric Psychiatric: appropriate mood/affect, intact judgment & insight - Neurologic Neurologic: CNII-XII intact, moves all extremities - Allied Health Allied health notes reviewed: nursing, case management Plan Activity: no restrictions Diet: renal Follow up with: PRIMARY CAREMD [Primary Care Provider] - 7 Days Forms: Accompanied Note
[2020-09-29] MEDS ORDERED: METOCLOPRAMIDE 10 MG TAB PO SCH (14:00)
[2020-09-29] MEDS ORDERED: MIDODRINE 5 MG TAB PO SCH (14:00)
--- NOTE | 2020-09-29 14:24 | Electrocardiograph Report ---
[facility] Test Date: 2020-09-27 Test Time: 20:10:01 Pat Name: RENITA HUBBARD Department: Room: A474 1 Gender: M Marketing Content Coordinator: ANTONIO : 1970 Requested By: ÁNGELA MAYORGA Order Number: [id number] Reading MD: Lashell Gordon Measurements Intervals [place] Rate: 116 P: 19 IA: 174 QRS: -48 QRSD: 93 T: 170 QT: 348 QTc: 484 Interpretive Statements Sinus tachycardia Left axis deviation Left ventricle hypertrophy with repolarization abnormalities of LVH Repol abnrm may suggest ischemia, lateral leads Compared to ECG 09/18/2020 10:01:11 No significant change Electronically Signed On 09-29-2020 14:24:32 EDT by Lashell Gordon
[2020-09-29 16:38] VITALS: BP 92/58
--- NOTE | 2020-09-29 17:08 | Gastroenterology Progress Note ---
Assessment and Plan GI: stable overnight w/o complaints - PPI qd - diet as tolerated - ok to dc from GI standpoint, will sign off Subjective Date of service: 09/29/20 Principal diagnosis: Hypotension, right lower lobe pneumonia Interval history: - no GI issues overnight Objective - Constitutional Vitals: Temp Pulse Resp BP Pulse Ox 98.3 F 100 H 18 92/58 98 09/29/20 11:32 09/29/20 13:20 09/29/20 11:32 09/29/20 13:20 09/29/20 11:32 General appearance: no acute distress - EENT Eyes: PERRL - Respiratory Respiratory: bilateral: CTA - Cardiovascular Rhythm: regular Heart Sounds: Present: S1 & S2 - Gastrointestinal General gastrointestinal: Present: soft, non-tender, non-distended - Labs CBC & Chem 7: 09/28/20 14:30 09/28/20 05:41 Labs: Laboratory Results - last 24 hr 09/28/20 09/29/20 09/29/20 21:29 07:47 11:58 POC Glucose 142 H 134 H 135 H
[2020-09-29] MEDS ORDERED: FAMOTIDINE 20 MG TAB PO SCH (22:00)
[2020-09-29] MEDS ORDERED: SODIUM BICARBONATE 650 MG TAB PO SCH (22:00)
[2020-09-30] MEDS ORDERED: GABAPENTIN 300 MG CAP PO SCH (10:00)
--- NOTE | 2020-10-02 10:09 | Electrocardiograph Report ---
[facility] Test Date: 2020-09-27 Test Time: 19:54:34 Pat Name: RENITA HUBBARD Department: Room: A474 1 Gender: M Sled Maker: KRISTIE : 1970 Requested By: SOUTH NIEVES Order Number: [id number] Reading MD: Gonzalo Carlos Measurements Intervals [place] Rate: 109 P: 14 [place]: 137 QRS: -13 QRSD: 102 T: 6 QT: 352 QTc: 476 Interpretive Statements Sinus tachycardia Probable left ventricular hypertrophy Compared to ECG 09/18/2020 10:01:11 No significant change noted. Electronically Signed On 10-02-2020 10:09:10 EDT by Gonzalo Carlos
== END 2020-09-29 14:26 | disposition home or self-care (01) | DRG 377 ==
LOC: ED 17:44 → 4A 22:05
PROVIDERS: ADMIT Internal Medicine Geriatric Medicine; ATTEND Internal Medicine
PROC: 5A1D70Z Performance of Urinary Filtration, Intermittent, Less than 6 Hours Per Day (ICD-10-PCS; principal; 2020-09-28)
PROC: 05HY33Z Insertion of Infusion Device into Upper Vein, Percutaneous Approach (ICD-10-PCS; 2020-09-28)
DX: K92.2 Gastrointestinal hemorrhage, unspecified (principal); N18.6 End stage renal disease; J18.9 Pneumonia, unspecified organism; I21.4 Non-ST elevation (NSTEMI) myocardial infarction; I12.0 Hypertensive chronic kidney disease with stage 5 chronic kidney disease or end stage renal disease; E87.6 Hypokalemia; I95.9 Hypotension, unspecified; I25.10 Atherosclerotic heart disease of native coronary artery without angina pectoris; Z20.822 Contact with and (suspected) exposure to COVID-19; E11.22 Type 2 diabetes mellitus with diabetic chronic kidney disease; K21.9 Gastro-esophageal reflux disease without esophagitis; Z89.512 Acquired absence of left leg below knee; Z89.511 Acquired absence of right leg below knee; Z86.718 Personal history of other venous thrombosis and embolism; Z86.711 Personal history of pulmonary embolism; Z99.2 Dependence on renal dialysis; Z79.4 Long term (current) use of insulin
CPT/HCPCS: 36415; 71045; 74176; 80048; 80061; 80076; 82140; 82271; 82728; 82947; 82962; 83615; 83690; 83735; 83880; 84145; 84484; 85025; 85379; 85610; 85730; 86140; 86850; 86900; 86901; 87040; 93005; 96365; 96367; 96375; G0378; C9113; J0692; J1815; J2405; J3370; J3480; J7030; J7040; U0003

== ENCOUNTER 2020-12-20 08:39 | Emergency (ER) | payer MEDICARE ==
--- NOTE | 2020-12-20 09:31 | Emergency Department Report ---
HPI - General Chief Complaint: Tube Replacement Time Seen by Provider: 12/20/20 09:06 - HPI HPI: 50-year-old -Serbian male presents to the emergency department with a complaint that his right-sided chest dialysis catheter came out last night accid entally. He did receive dialysis yesterday as he is on a Wednesday//Wednesday schedule. He denies any chest pain, shortness of breath, lower extremity swelling or any physical complaints at this time. His services host is Dr. Dean Moore and he gets dialysis at [facility] in [place]. Any bleeding from the catheter coming out has since stopped. The patient also has a past medical history of hypertension, coronary artery disease, pulmonary embolism anticoagulated on Eliquis. ED Past Medical Hx - Past Medical History Hx Hypertension: Yes Hx Congestive Heart Failure: No Hx Diabetes: Yes Hx Deep Vein Thrombosis: No Hx Pulmonary Embolism: Yes Hx GERD: Yes Hx Renal Disease: Yes (HD ) Hx Asthma: No Hx COPD: No Hx HIV: No - Surgical History Hx Pacemaker: No Hx Internal Defibrillator: No Additional Surgical History: Bilateral BKA's - Social History Smoking Status: Unknown if ever smoked - Medications Home Medications: Home Medications Medication Instructions Recorded Confirmed Last Taken Type Sodium Bicarbonate 650 mg PO BID #60 09/29/20 11/06/20 Unknown Rx AtorvaSTATin [Lipitor] 40 mg PO QHS tablet 10/31/20 11/06/20 Unknown Rx Apixaban [Eliquis] 5 mg PO Q12HR #60 tablet 11/08/20 Unknown Rx AtorvaSTATin [Lipitor] 40 mg PO QHS #30 tablet 11/08/20 Unknown Rx Benzonatate [Tessalon Perles] 100 mg PO TID PRN #12 cap 11/08/20 Unknown Rx Gabapentin 300 mg PO 3XW #30 capsule 11/08/20 Unknown Rx Metoclopramide [Reglan TAB] 10 mg PO TID #90 11/08/20 Unknown Rx Midodrine [Proamatine] 5 mg PO TID #90 11/08/20 Unknown Rx Ondansetron [Zofran ODT TAB] 4 mg PO Q6H PRN #20 tab.rapdis 11/08/20 Unknown Rx Pantoprazole [Protonix TAB] 40 mg PO BID 30 Days #60 tab 11/08/20 Unknown Rx Potassium Chloride [K-Dur] 20 meq PO QDAY 3 Days #3 tablet 11/08/20 Unknown Rx Sucralfate [Carafate] 1 gm PO Q6HR 30 Days #1 bottle 11/08/20 Unknown Rx chlorproMAZINE [Thorazine] 25 mg PO Q12HR #10 tablet 11/08/20 Unknown Rx ED Review of Systems ROS: Stated complaint: CATHER DISPLACED Other details as noted in HPI Comment: All other systems reviewed and negative Constitutional: denies: chills, fever Eyes: denies: eye pain, vision change ENT: denies: ear pain, throat pain Respiratory: denies: cough, shortness of breath Cardiovascular: denies: chest pain, palpitations Gastrointestinal: denies: abdominal pain, vomiting Genitourinary: denies: dysuria, discharge Musculoskeletal: denies: back pain, arthralgia Skin: denies: rash, lesions Neurological: denies: headache, weakness Physical Exam - Physical Exam Vital Signs: Vital Signs 12/20/20 12/20/20 08:50 09:09 Temperature 98.3 F 98.7 F Pulse Rate 94 H 82 Respiratory 18 16 Rate Blood Pressure 142/76 Blood Pressure 144/90 [Right] O2 Sat by Pulse 98 97 Oximetry Physical Exam: GENERAL: The patient is well-developed well-nourished. HENT: Normocephalic. Atraumatic. Patient has moist mucous membranes. EYES: Extraocular motions are intact. NECK: Supple. Trachea is midline. CHEST/LUNGS: Clear to auscultation. There is no respiratory distress noted. HEART/CARDIOVASCULAR: Regular. There is no tachycardia. There is no murmur. ABDOMEN: Abdomen is soft, nontender. Patient has normal bowel sounds. SKIN: Skin is warm and dry. There is a very small circular wound to the right chest wall where he previously had the dialysis catheter. No surrounding erythema. No bleeding or discharge. NEURO: The patient is awake, alert, and oriented. The patient is cooperative. Normal speech. MUSCULOSKELETAL: There is no tenderness or deformity. There is no limitation range of motion. ED Course Vital Signs 12/20/20 12/20/20 08:50 09:09 Temperature 98.3 F 98.7 F Pulse Rate 94 H 82 Respiratory 18 16 Rate Blood Pressure 142/76 Blood Pressure 144/90 [Right] O2 Sat by Pulse 98 97 Oximetry - Consultations Consultation #1: 12/20/20 10:46 I have placed a call to speak with the vascular surgeon on-call in regards to their ability to replace the dialysis chest catheter given the patient's anticoagulation on Eliquis. Consultation #2: 12/20/20 11:56 I spoke with the patient's services host, Dr. Dean Moore. I reviewed the patient's labs with Dr. Moore. This patient was a recent TARYN and has been showing improvement. Therefore, based on the labs and the patient's clinical examination, Dr. Moore feels that the patient can be discharged home without repl acement of the dialysis chest catheter. Someone from his office will be contacting the patient for an appointment next week to recheck labs and see if the patient needs to return for dialysis. ED Medical Decision Making - Lab Data Result diagrams: 12/20/20 09:14 12/20/20 09:14 - Medical Decision Making This patient presents to the emergency department with a complaint that his dialysis catheter came out accidentally overnight. The patient is asymptomatic and has no physical complaints. Labs are mostly unremarkable. There is some renal insufficiency but it appears improved from end-stage renal disease on hemodialysis. I spoke to the patient's services host who listened to the case presentation and the laboratory results. He feels that the patient does not need replacement of the dialysis catheter at this time as he is showing renal improvement. They will follow up with the patient next week. Critical Care Time: No Critical care attestation.: If time is entered above; I have spent that time in minutes in the direct care of this critically ill patient, excluding procedure time. ED Disposition Clinical Impression: Renal insufficiency Displacement of vascular dialysis catheter Qualifiers: Encounter type: initial encounter Qualified Code(s): T82.42XA - Displacement of vascular dialysis catheter, initial encounter Disposition: 01 HOME / SELF CARE / HOMELESS Is pt being admited?: No Condition: Stable Additional Instructions: Please follow-up with your services host in the next few days. Someone from his office should be contacting you for close outpatient follow-up and rechecking your labs. Return to the emergency department with any worsening of your symptoms, new or concerning symptoms not addressed during this current emergency department visit, or with any acute distress. Referrals: Lance Crewmember, Your [Other] - 3-5 Days Time of Disposition: 11:59
[2020-12-20 10:13] LABS: Calcium 9.2 mg/dL (8.4-10.2)
[2020-12-20 10:17] LABS: Basophils # (Auto) 0.1 K/mm3 (0.0-0.1); Basophils % (Auto) 0.9 % (0.0-1.8); Eosinophils # (Auto) 0.3 K/mm3 (0.0-0.4); Hematocrit 34.6 % (35.5-45.6); Hemoglobin 11.3 gm/dl (11.8-15.2); Lymphocytes # (Auto) 1.9 K/mm3 (1.2-5.4); Lymphocytes % (Auto) 32.9 % (13.4-35.0); Mean Corpuscular HGB Conc 33 % (32-34); Mean Corpuscular Volume 89 fl (84-94); Monocytes # (Auto) 0.5 K/mm3 (0.0-0.8); Monocytes % (Auto) 8.4 % (0.0-7.3); Platelet Count 197 K/mm3 (140-440); Red Cell Distribution Width 15.6 % (13.2-15.2)
[2020-12-20 10:34] LABS: INR 0.97 (0.87-1.13); Partial Thromboplastin Time 30.3 Sec. (24.2-36.6)
[2020-12-20 12:37] VITALS: BP 140/81
== END 2020-12-20 12:37 | disposition home or self-care (01) ==
LOC: ED 08:39
DX: T82.42XA Displacement of vascular dialysis catheter, initial encounter (principal); N28.9 Disorder of kidney and ureter, unspecified; E11.22 Type 2 diabetes mellitus with diabetic chronic kidney disease; I12.0 Hypertensive chronic kidney disease with stage 5 chronic kidney disease or end stage renal disease; N18.6 End stage renal disease; Y99.8 Other external cause status; Y92.9 Unspecified place or not applicable
CPT/HCPCS: 36415; 80048; 85025; 85610; 85730; 99283